=== PATIENT | female | born 1940 | race Caucasian/White ===

== ENCOUNTER 2016-07-24 23:47 | Emergency (ER) | payer MEDICARE, OTHER ==
[~2016-07-24] VITALS: Ht 162.6 cm; Wt 74.0 kg
[~2016-07-24 23:47] MED LIST: ALBU6.7H INH; LEVO-86 PO; MULTTAB26; NEXI20CA PO; PROMSYP6 PO; TRAM50TA PO
[2016-07-24 23:48] VITALS: BP 161/73; PULSE 109; RESP 18; TEMP 101; O2SAT 94
[2016-07-25] MEDS ORDERED: SODIUM CHLOR 0.9% 1000 ML INJ 1,000 ML IV ONE (00:30)
[2016-07-25] MEDS ORDERED: SODIUM CHLORIDE 0.9% FLUSH 10 ML FLUSH IVF PRN (00:30)
[2016-07-25 00:43] LABS: AUTOMATED NEUTROPHIL # 10.2 TH/MM3 (1.8-7.7); BASOPHIL # 0.2 TH/MM3 (0-0.2); BASOPHIL % 1.3 % (0.0-2.0); EOSINOPHIL % 0.1 % (0.0-4.0); HEMATOCRIT 40.9 % (35.0-46.0); LYMPHOCYTE # 1.2 TH/MM3 (1.0-4.8); MEAN CELL VOLUME 77.6 FL (80.0-100.0); MEAN CORPUSCULAR HEMOGLOBIN 25.3 PG (27.0-34.0); MEAN CORPUSCULAR HGB CONC 32.6 % (32.0-36.0); MONO % 12.4 % (0.0-8.0); NEUT % 77.2 % (16.0-70.0); PLATELET COUNT 212 TH/MM3 (150-450); RED BLOOD COUNT 5.27 MIL/MM3 (4.00-5.30); RED CELL DISTRIBUTION WIDTH 18.4 % (11.6-17.2); WHITE BLOOD COUNT 13.2 TH/MM3 (4.0-11.0)
[2016-07-25 00:47] LABS: HEMO FLAGS DIFF FINAL
--- NOTE | 2016-07-25 00:56 | RADRPT ---
EXAM DATE/TIME: 07/25/2016 00:48 [facility] COMPARISON: CHEST SINGLE AP, February 03, 2016, 22:34. INDICATIONS : Cough. MEDICAL HISTORY : None. SURGICAL HISTORY : None. ENCOUNTER: Initial ACUITY: 2 weeks PAIN SCORE: 0/10 LOCATION: Bilateral chest FINDINGS: PA and lateral views of the chest demonstrate the lungs to be symmetrically aerated without evidence of mass, infiltrate or effusion. The cardiomediastinal contours are unremarkable. Osseous structure s are intact. There are multiple overlying electrocardiogram leads noted. There is mild apparent scar ring. CONCLUSION: No acute disease. There is no evidence of pneumonia. Aly Ballard MD on July 25, 2016 at 0:54 Board Certified Radiologist. This report was verified electronically.
[2016-07-25 00:59] LABS: ALT (GPT) 35 U/L (10-53); ANION GAP 8 MEQ/L (5-15); AST (GOT) 17 U/L (15-37); BICARBONATE 26.3 MEQ/L (21.0-32.0); BLOOD UREA NITROGEN 17 MG/DL (7-18); CHLORIDE 101 MEQ/L (98-107); GLOMERULAR FILTRATION RATE 97 ML/MIN (>89); POTASSIUM 3.7 MEQ/L (3.5-5.1); SODIUM (NA) 135 MEQ/L (136-145)
[2016-07-25] MEDS ORDERED: BENZONATATE 100 MG CAP PO ONE (01:00)
[2016-07-25 01:01] LABS: ALKALINE PHOSPHATASE 71 U/L (45-117); TOTAL BILIRUBIN ADULT 0.9 MG/DL (0.2-1.0)
[2016-07-25] MEDS ORDERED: IOHEXOL 350 MG/ML 10 ML VIAL (for RAD DIAG) IV ONE (02:08)
--- NOTE | 2016-07-25 02:30 | RADRPT ---
EXAM DATE/TIME: 07/25/2016 02:04 [facility] COMPARISON: CHEST PA & LAT, July 25, 2016, 0:48. INDICATIONS : Cough and congestion. Evaluate for emboli. IV CONTRAST: 75 cc Omnipaque 350 (iohexol) IV RADIATION DOSE: 23.38 CTDIvol (mGy) MEDICAL HISTORY : None SURGICAL HISTORY : Hysterectomy. ENCOUNTER: Initial ACUITY: 1 day PAIN SCALE: 0/10 LOCATION: chest TECHNIQUE: Volumetric scanning of the chest was performed using a pulmonary embolism protocol MIP images were re constructed. Using automated exposure control and adjustment of the mA and/or kV according to patien t size, radiation dose was kept as low as reasonably achievable to obtain optimal diagnostic quality images. FINDINGS: PULMONARY ARTERIES: No filling defects are seen in the pulmonary arteries through the segmental level. LUNGS: There is no consolidation or pneumothorax . No concerning pulmonary nodule is visualized. There is m ild scarring. PLEURAE: There is no pleural thickening or pleural effusion. MEDIASTINUM: There is good visualization of the great vessels of the middle mediastinum. No evidence of mediastin al or hilar adenopathy/mass. There are tracheal calcifications. MUSCULOSKELETAL: Within normal limits for patient age. MISCELLANEOUS: The visualized upper abdominal organs demonstrate no acute abnormality. CONCLUSION: 1. No evidence of pulmonary emboli. 2. Lungs are clear except for mild scarring. Aly Ballard MD on July 25, 2016 at 2:27 Board Certified Radiologist. This report was verified electronically.
[2016-07-25] MEDS ORDERED: AMOXICILLIN/CLAVULANATE K 875 MG TAB PO ONE (03:15)
[2016-07-25] MEDS ORDERED: ACETAMINOPHEN 325 MG TAB PO ONE (03:15)
[2016-07-25] MEDS ORDERED: guaiFENesin/DEXTROMETHORPHAN 200 MG/20 MG/10 ML CUP PO ONE (03:15)
[2016-07-25] MEDS ORDERED: AUGM875T PO (03:47)
[2016-07-25] MEDS ORDERED: MUCI30TA2 PO (03:47)
--- NOTE | 2016-07-25 03:48 | PD ---
HPI Chief Complaint: Respiratory Symptoms Time Seen by Provider: 00:03 Travel History International Travel<30 days: No Contact w/Intl Traveler<30days: No Traveled to known affect area: No History of Present Illness HPI Patient 75-year-old female who just returned from a cruise out of [facility] a few days ago. Patient states that she developed a cough and congestion on the boat. She states that the crew ship doctor given her several DuoNeb treatments and she is not feeling better. She is coming by her who states that he was also sick for a few days and is now recovered. She denies any diarrhea nausea vomiting abdominal pain or hemoptysis. She states that she did have some fevers and was taking Tylenol intermittently but hasn't had some in some time. She denies any history of blood clots. PFSH Past Medical History Hx Anticoagulant Therapy: Yes (ASA) Diminished Hearing: No Immunizations Current: Yes Tetanus Vaccination: Unknown Influenza Vaccination: Yes Past Surgical History Hysterectomy: Yes Social History Alcohol Use: No Tobacco Use: No Substance Use: No Allergies-Medications (Allergen,Severity, Reaction): Coded Allergies: Chloromycetin (Verified Allergy, Severe, 07/25/16) Codeine (Verified Allergy, Severe, 07/25/16) Erythromycin (Verified Allergy, Unknown, 07/25/16) Reported Meds & Prescriptions Reported Meds & Active Scripts Active Augmentin (Amoxicillin-Clavulanate) 875-125 mg Tab 875 Mg PO BID 7 Days not for use in CrCl <30 ml/min. Mucinex DM (Dextromethorphan-Guaifenesin) 30-600 Mg Tab 1 Tab PO BID PRN Proventil Hfa 6.7 GM Inh (Albuterol Sulfate) 90 Mcg/Act Aer 2 Puff INH Q4HR PRN Reported Multi Complete/Iron (Multiple Vitamins W/ Minerals) 1 Tab Tab Synthroid (Levothyroxine Sodium) 137 Mcg Tab 137 Mcg PO DAILY Nexium (Esomeprazole DR) 20 Mg Capdr 20 Mg PO DAILY Review of Systems Except as stated in HPI: all other systems reviewed are Neg Physical Exam Narrative GENERAL: Well-developed well-nourished in no apparent distress. Appears well and nontoxic. SKIN: Focused skin assessment warm/dry. HEAD: Atraumatic. Normocephalic. EYES: Pupils equal and round. No scleral icterus. No injection or drainage. ENT: No nasal bleeding or discharge. Mucous membranes pink and moist. TMs clear bilaterally, oropharynx clear and moist. NECK: Trachea midline. No JVD. CARDIOVASCULAR: Regular rhythm with mild tachycardia. No murmur appreciated. 2 + bilateral equal pulses in all 4 extremities. RESPIRATORY: No accessory muscle use. Clear to auscultation. Breath sounds equal bilaterally. GASTROINTESTINAL: Abdomen soft, non-tender, nondistended. Hepatic and splenic margins not palpable. MUSCULOSKELETAL: No obvious deformities. No clubbing. No cyanosis. No edema. NEUROLOGICAL: Awake and alert. No obvious cranial nerve deficits. Motor grossly within normal limits. Normal speech. PSYCHIATRIC: Appropriate mood and affect; insight and judgment normal. Data Data Last Documented VS Vital Signs Date Time Temp Pulse Resp B/P Pulse Ox O2 Delivery O2 Flow Rate FiO2 07/25/16 03:58 104 18 169/80 95 07/25/16 00:34 Nasal Cannula 2 07/24/16 23:48 101.0 Orders Electrocardiogram (07/25/16 00:18) Complete Blood Count With Diff (07/25/16 00:18) Comprehensive Metabolic Panel (07/25/16 00:18) Lactic Acid Sepsis Protocol (07/25/16 00:18) Chest, Pa & Lat (07/25/16 00:18) Sodium Chloride 0.9% Flush (Ns Flush) (07/25/16 00:30) Sodium Chlor 0.9% 1000 Ml Inj (Ns 1000 M (07/25/16 00:30) Benzonatate (Tessalon) (07/25/16 01:00) Ct Pulmonary Angiogram (07/25/16 ) Influenzae A/B Antigen (07/25/16 01:22) Iohexol 350 Inj (Omnipaque 350 Inj) (07/25/16 02:08) Acetaminophen (Tylenol) (07/25/16 03:15) Amoxicil-Clavulanate (Augmentin) (07/25/16 03:15) Guaifen-Dm 200-20 Mg/10 Ml Liq (Robituss (07/25/16 03:15) Labs Laboratory Tests Test 07/25/16 00:25 White Blood Count 13.2 TH/MM3 Red Blood Count 5.27 MIL/MM3 Hemoglobin 13.3 GM/DL Hematocrit 40.9 % Mean Corpuscular Volume 77.6 FL Mean Corpuscular Hemoglobin 25.3 PG Mean Corpuscular Hemoglobin 32.6 % Concent Red Cell Distribution Width 18.4 % Platelet Count 212 TH/MM3 Mean Platelet Volume 11.0 FL Neutrophils (%) (Auto) 77.2 % Lymphocytes (%) (Auto) 9.0 % Monocytes (%) (Auto) 12.4 % Eosinophils (%) (Auto) 0.1 % Basophils (%) (Auto) 1.3 % Neutrophils # (Auto) 10.2 TH/MM3 Lymphocytes # (Auto) 1.2 TH/MM3 Monocytes # (Auto) 1.6 TH/MM3 Eosinophils # (Auto) 0.0 TH/MM3 Basophils # (Auto) 0.2 TH/MM3 CBC Comment DIFF FINAL Differential Comment Sodium Level 135 MEQ/L Potassium Level 3.7 MEQ/L Chloride Level 101 MEQ/L Carbon Dioxide Level 26.3 MEQ/L Anion Gap 8 MEQ/L Blood Urea Nitrogen 17 MG/DL Creatinine 0.60 MG/DL Estimat Glomerular Filtration 97 ML/MIN Rate Random Glucose 115 MG/DL Lactic Acid Level 0.9 mmol/L Calcium Level 9.4 MG/DL Total Bilirubin 0.9 MG/DL Aspartate Amino Transf 17 U/L (AST/SGOT) Alanine Aminotransferase 35 U/L (ALT/SGPT) Alkaline Phosphatase 71 U/L Total Protein 7.5 GM/DL Albumin 3.8 GM/DL [facility] Medical Decision Making Medical Screen Exam Complete: Yes Emergency Medical Condition: Yes Differential Diagnosis Pneumonia, atypical pneumonia, upper respiratory infection, influenza. Narrative Course Patient roomed in emergency department, minimally tachycardic. She was given fluids. Initially afebrile in emergency department she did spike a temperature to 101. She was given Tylenol. Initial chest x-ray is negative, with her tachycardia and mild short of breath CT PE study was indicated as the patient did have travel to [facility]. Last 24 hours Impressions Chest X-Ray 07/25/16 0018 Signed Impressions: Service Date/Time: Monday, July 25, 2016 00:48 - CONCLUSION: No acute disease. There is no evidence of pneumonia. Aly Ballard MD CT Angiography 07/25/16 0000 Signed Impressions: Service Date/Time: Monday, July 25, 2016 02:04 - CONCLUSION: 1. No evidence of pulmonary emboli. 2. Lungs are clear except for mild scarring. Aly Ballard MD Patient was monitored for several hours in the emergency department continues to appear well. She was given Tessalon which did not alleviate her cough. Mucinex DM was given and patient on reevaluation is sleeping comfortable. Her heart rate is improved and still remains minimally tachycardic approximate 105 bpm. Her oxygen saturation has been 94% plus while in the emergency department. Discussed my impression that the patient likely has an upper respiratory infection however she was on a cruise ship and exposure Listeria needs consideration. She does have an allergy to azithromycin and Augmentin will be ordered and instead. She would like to go home at this time. Discussed return to ED criteria need follow-up with primary care physician Diagnosis Primary Impression: Upper respiratory infection Qualified Code: J06.9 - Viral upper respiratory tract infection Additional Impression: Cough Med/Other Pt SpecificInfo: Prescription(s) given Scripts Amoxicillin-Clavulanate (Augmentin)875-125 mg Clo424 Mg PO BID 7 Days Ref 0 not for use in CrCl <30 ml/min. Prov:Cameron Hinojosa MD 07/25/16 Dextromethorphan-Guaifenesin (Mucinex DM)30-600 Mg Tab1 Tab PO BID PRN (CHEST CONGESTION AND/OR COUGH) #30 TAB Ref 0 Prov:Cameron Hinojosa MD 07/25/16 Disposition: 01 DISCHARGE HOME Condition: Stable Cameron Hinojosa MD July 25, 2016 03:48
[2016-07-25 03:58] VITALS: BP 169/80
--- NOTE | 2016-07-25 10:25 | EKG ---
Date Performed: 07/25/2016 Time Performed: 00:49:22 PTAGE: 75 years EKG: SINUS TACHYCARDIA NONSPECIFIC ST & T-WAVE ABNORMALITY ABNORMAL RHYTHM ECG NO PREVIOUS TRACING DOCTOR: Levi Coronado Interpretating Date/Time 07/25/2016 10:20:41
== END 2016-07-25 04:06 | disposition home or self-care (01) ==
LOC: NEPC 23:47
DX: J06.9 Acute upper respiratory infection, unspecified (principal); R00.0 Tachycardia, unspecified
CPT/HCPCS: 71020; 71275; 80053; 83605; 85025; 87804; 93005; 96374; 99284; J7030; Q9967

== ENCOUNTER 2016-08-01 21:55 | Emergency (ER) | payer MEDICARE, OTHER ==
[~2016-08-01] VITALS: Ht 167.6 cm; Wt 79.5 kg
[~2016-08-01 21:55] MED LIST changes: +AUGM875T PO; +MUCI30TA2 PO; -PROMSYP6 PO; -TRAM50TA PO
[2016-08-01 22:05] VITALS: BP 206/91; PULSE 77; RESP 18; O2SAT 94
[2016-08-01] MEDS ORDERED: SODIUM CHLORIDE 0.9% FLUSH 10 ML FLUSH IV FLUSH PRN (22:15)
[2016-08-01] MEDS ORDERED: MORPHINE SULFATE 4 MG/ML INJ IV PUSH ONE (22:15)
[2016-08-01] MEDS ORDERED: ONDANSETRON HCL 4 MG/2 ML VIAL IVP ONE (22:15)
[2016-08-01] MEDS ORDERED: methylPREDNISolone SOD SUCC 125 MG/2 ML VIAL IV PUSH ONE (22:15)
--- NOTE | 2016-08-01 22:15 | PD ---
HPI Chief Complaint: Pain: Acute or Chronic Time Seen by Provider: 22:00 Travel History International Travel<30 days: Yes Contact w/Intl Traveler<30days: Yes Name of Country Traveled to: [place] Traveled to known affect area: No ([place] and [place]) History of Present Illness HPI This is a 75-year-old female who presents via EMS for evaluation of right sided lateral lower rib cage pain. She has been having a cough, upper respiratory infection for 3 weeks. This morning she had a particularly forceful coughing spell when she felt a "pop" in her right lateral lower rib cage. Since then she has had persistent pain which is worse with movement and coughing. She tried using NSAIDs, Flexeril but the symptoms have persisted which prompted evaluation. Pain is 10 out of 10, aching. She denies any shortness of breath, abdominal pain, nausea or vomiting, dysuria, fevers or chills, hematuria. No history of renal stone. She has no other complaints at this time. PFSH Past Medical History Hx Anticoagulant Therapy: Yes (ASA) Diminished Hearing: No Immunizations Current: Yes Past Surgical History Hysterectomy: Yes Social History Alcohol Use: No Tobacco Use: No Substance Use: No Allergies-Medications (Allergen,Severity, Reaction): Coded Allergies: Chloromycetin (Verified Allergy, Severe, 08/01/16) Codeine (Verified Allergy, Severe, 08/01/16) Erythromycin (Verified Allergy, Unknown, 08/01/16) Reported Meds & Prescriptions Reported Meds & Active Scripts Active Tramadol (Tramadol HCl) 50 Mg Tab 50 Mg PO Q6H PRN Mucinex DM (Dextromethorphan-Guaifenesin) 30-600 Mg Tab 1 Tab PO BID PRN Proventil Hfa 6.7 GM Inh (Albuterol Sulfate) 90 Mcg/Act Aer 2 Puff INH Q4HR PRN Reported Multi Complete/Iron (Multiple Vitamins W/ Minerals) 1 Tab Tab Synthroid (Levothyroxine Sodium) 137 Mcg Tab 137 Mcg PO DAILY Nexium (Esomeprazole DR) 20 Mg Capdr 20 Mg PO DAILY Review of Systems Except as stated in HPI: all other systems reviewed are Neg Physical Exam Narrative GENERAL: Pleasant well-developed well-nourished female in no acute distress. SKIN: Warm and dry. No rash noted on the torso HEAD: Atraumatic. Normocephalic. EYES: Pupils equal and round. No scleral icterus. No injection or drainage. ENT: No nasal bleeding or discharge. Mucous membranes pink and moist. NECK: Trachea midline. No JVD. CARDIOVASCULAR: Regular rate and rhythm. No murmur appreciated. RESPIRATORY: No accessory muscle use. Clear to auscultation. Breath sounds equal bilaterally. No crackles no wheezing no rhonchi GASTROINTESTINAL: Abdomen soft, non-tender, nondistended. Hepatic and splenic margins not palpable. MUSCULOSKELETAL: No obvious deformities. There is tenderness to palpation to the lateral right lower rib cage. There is no tenderness to palpation in the after right CVA region. NEUROLOGICAL: Awake and alert. No obvious cranial nerve deficits. Motor grossly within normal limits. Normal speech. Data Data Last Documented VS Vital Signs Date Time Temp Pulse Resp B/P Pulse Ox O2 Delivery O2 Flow Rate FiO2 08/02/16 00:17 78 16 167/73 99 Room Air Orders Ribs, Uni (W/Exp Cxr-Min 3vw) (08/01/16 ) Complete Blood Count With Diff (08/01/16 22:05) Comprehensive Metabolic Panel (08/01/16 22:05) Urinalysis - C+S If Indicated (08/01/16 22:05) Iv Access Insert/Monitor (08/01/16 22:05) Ecg Monitoring (08/01/16 22:05) Oximetry (08/01/16 22:05) Morphine Inj (Morphine Inj) (08/01/16 22:15) Ondansetron Inj (Zofran Inj) (08/01/16 22:15) Sodium Chloride 0.9% Flush (Ns Flush) (08/01/16 22:15) Methylprednisolone So Succ Inj (Solumedr (08/01/16 22:15) Ketorolac Inj (Toradol Inj) (08/02/16 00:00) Lidocaine 5% Patch.12 Hr (Lidoderm 5% Pa (08/02/16 00:00) Labs Laboratory Tests Test 08/01/16 08/01/16 22:19 23:00 White Blood Count 9.1 TH/MM3 Red Blood Count 4.84 MIL/MM3 Hemoglobin 12.8 GM/DL Hematocrit 37.6 % Mean Corpuscular Volume 77.8 FL Mean Corpuscular Hemoglobin 26.5 PG Mean Corpuscular Hemoglobin 34.0 % Concent Red Cell Distribution Width 19.4 % Platelet Count 333 TH/MM3 Mean Platelet Volume 10.4 FL Neutrophils (%) (Auto) 57.8 % Lymphocytes (%) (Auto) 28.5 % Monocytes (%) (Auto) 11.1 % Eosinophils (%) (Auto) 1.4 % Basophils (%) (Auto) 1.2 % Neutrophils # (Auto) 5.3 TH/MM3 Lymphocytes # (Auto) 2.6 TH/MM3 Monocytes # (Auto) 1.0 TH/MM3 Eosinophils # (Auto) 0.1 TH/MM3 Basophils # (Auto) 0.1 TH/MM3 CBC Comment AUTO DIFF Differential Total Cells 100 Counted Neutrophils % (Manual) 54 % Band Neutrophils % 4 % Lymphocytes % 31 % Monocytes % 5 % Eosinophils % 1 % Basophils % 1 % Other Cells % 1 % Neutrophils # (Manual) 5.6 TH/MM3 Metamyelocytes 2 % Myelocytes 1 % Differential Comment FINAL DIFF MANUAL Atypical Lymphocytes % Platelet Estimate NORMAL Platelet Morphology Comment ENLARGED Ovalocytes 1+ Acanthocytes 1+ Keratocytes OCC Sodium Level 142 MEQ/L Potassium Level 3.7 MEQ/L Chloride Level 108 MEQ/L Carbon Dioxide Level 27.2 MEQ/L Anion Gap 7 MEQ/L Blood Urea Nitrogen 9 MG/DL Creatinine 0.52 MG/DL Estimat Glomerular Filtration 114 ML/MIN Rate Random Glucose 97 MG/DL Calcium Level 8.9 MG/DL Total Bilirubin 0.2 MG/DL Aspartate Amino Transf 15 U/L (AST/SGOT) Alanine Aminotransferase 24 U/L (ALT/SGPT) Alkaline Phosphatase 76 U/L Total Protein 6.6 GM/DL Albumin 3.1 GM/DL Urine Color LIGHT-YELLOW Urine Turbidity CLEAR Urine pH 6.5 Urine Specific [place] 1.008 Urine Protein NEG mg/dL Urine Glucose (UA) NEG mg/dL Urine Ketones NEG mg/dL Urine Occult Blood NEG Urine Nitrite NEG Urine Bilirubin NEG Urine Urobilinogen LESS THAN 2.0 MG/DL Urine Leukocyte Esterase TRACE Urine RBC LESS THAN 1 /hpf Urine WBC 2 /hpf Urine Squamous Epithelial 2 /hpf Cells Urine Mucus FEW /lpf Microscopic Urinalysis Comment CULT NOT INDICATED MDM Medical Decision Making Medical Screen Exam Complete: Yes Emergency Medical Condition: Yes Medical Record Reviewed: Yes Differential Diagnosis Costochondritis, intercostal muscle strain, spontaneous pneumothorax, rib fracture, pneumonia, renal stone Narrative Course 75-year-old female who has had a cough for 3 weeks presents now with lateral right lower rib cage pain which started after a coughing spell this morning. Examination reveals that the pain is reproducible to palpation of the lateral right lower rib cage. There is no CVA tenderness and her history is more suggestive of musculoskeletal pain as opposed to a renal stone. Plan is for right-sided rib x-ray, basic lab work, urinalysis. The patient will be provided morphine and Zofran. At the end of my shift the patient was signed out pending x-ray and lab work tests. Scripts Tramadol 50 Mg Tab50 Mg PO Q6H PRN (PAIN) #10 TAB Ref 0 Prov:Marybel Valdes DO 08/02/16 Derick Durán August 01, 2016 22:15
[2016-08-01 22:49] LABS: AUTOMATED NEUTROPHIL # 5.3 TH/MM3 (1.8-7.7); BASOPHIL # 0.1 TH/MM3 (0-0.2); BASOPHIL % 1.2 % (0.0-2.0); EOSINOPHIL # 0.1 TH/MM3 (0-0.4); EOSINOPHIL % 1.4 % (0.0-4.0); HEMATOCRIT 37.6 % (35.0-46.0); LYMPH % 28.5 % (9.0-44.0); LYMPHOCYTE # 2.6 TH/MM3 (1.0-4.8); MEAN CELL VOLUME 77.8 FL (80.0-100.0); MEAN CORPUSCULAR HEMOGLOBIN 26.5 PG (27.0-34.0); MONO % 11.1 % (0.0-8.0); NEUT % 57.8 % (16.0-70.0); PLATELET COUNT 333 TH/MM3 (150-450); RED BLOOD COUNT 4.84 MIL/MM3 (4.00-5.30); RED CELL DISTRIBUTION WIDTH 19.4 % (11.6-17.2); WHITE BLOOD COUNT 9.1 TH/MM3 (4.0-11.0)
[2016-08-01 22:56] LABS: HEMO FLAGS AUTO DIFF
[2016-08-01 23:08] LABS: ANION GAP 7 MEQ/L (5-15); AST (GOT) 15 U/L (15-37); BICARBONATE 27.2 MEQ/L (21.0-32.0); BLOOD UREA NITROGEN 9 MG/DL (7-18); CHLORIDE 108 MEQ/L (98-107); GLOMERULAR FILTRATION RATE 114 ML/MIN (>89); POTASSIUM 3.7 MEQ/L (3.5-5.1); SODIUM (NA) 142 MEQ/L (136-145)
--- NOTE | 2016-08-01 23:09 | RADRPT ---
EXAM DATE/TIME: 08/01/2016 22:49 [facility] COMPARISON: No previous studies available for comparison. INDICATIONS : Right side pain today after coughing. MEDICAL HISTORY : None. SURGICAL HISTORY : Hysterectomy. ENCOUNTER: Initial ACUITY: 1 day PAIN SCORE: 8/10 LOCATION: Right ribs. FINDINGS: Multiple views of the right ribs were performed. Pt. is osteopenic. There is no evidence of displaced fracture. No destructive lesions or areas of periosteal thickening are seen. Expiratory view of th e chest is negative for pneumothorax. The mediastinal structures are midline. CONCLUSION: Unremarkable examination of the right ribs and chest. Levi Purcell MD on August 01, 2016 at 23:07 Board Certified Radiologist. This report was verified electronically.
[2016-08-01 23:11] LABS: ALKALINE PHOSPHATASE 76 U/L (45-117); ALT (GPT) 24 U/L (10-53); TOTAL BILIRUBIN ADULT 0.2 MG/DL (0.2-1.0)
[2016-08-01 23:18] LABS: BLOOD, URINE NEG (NEG); GLUCOSE,URINE NEG (NEG); KETONE, URINE NEG (NEG); MUCUS URINE FEW /lpf (OCC); NITRITE,URINE NEG (NEG); PH, URINE 6.5 (5.0-8.5); SQUAMOUS EPITHELIAL CELL URINE 2 /hpf (0-5); URINE COLOR LIGHT-YELLOW (YELLW/STRAW)
[2016-08-01 23:24] LABS: COMMENT (UR) CULT NOT INDICATED; CULTURE IF INDICATED CULT NOT INDICATED
[2016-08-01 23:38] LABS: BANDS 4 % (0-6); BASOPHILS 1 % (0-2); EOSINOPHILS 1 % (0-4); METAMYELOCYTES 2 % (0-1); MYELOCYTES 1 % (0-0); NEUTROPHIL # MANUAL DIFF 5.6 TH/MM3 (1.8-7.7); POLYS (SEG NEUTROPHILS) 54 % (16-70); WBC DIFF SAMPLE 100
[2016-08-01 23:40] LABS: ACANTHOCYTES 1+ (NORMAL); KERATOCYTES OCC (NORMAL); OVALOCYTES 1+ (NORMAL)
[2016-08-01 23:41] LABS: PLATELET ESTIMATE SMEAR NORMAL (NORMAL); PLATELET MORPHOLOGY ENLARGED (NORMAL)
[2016-08-01 23:42] LABS: SCAN/DIFF FINAL DIFF MANUAL
[2016-08-02] MEDS ORDERED: KETOROLAC TROMETHAMINE 30 MG/ML (IVP) VIAL IVP ONE
[2016-08-02] MEDS ORDERED: LIDOCAINE HCL 5% PATCH T-DERMAL ONE
[2016-08-02] MEDS ORDERED: TRAM50TA PO (00:11)
--- NOTE | 2016-08-02 00:13 | PD ---
Physical Exam Date Seen by Provider: August 02, 2016 Data Data Last Documented VS Vital Signs Date Time Temp Pulse Resp B/P Pulse Ox O2 Delivery O2 Flow Rate FiO2 08/01/16 22:05 77 18 206/91 94 Orders Ribs, Uni (W/Exp Cxr-Min 3vw) (08/01/16 ) Complete Blood Count With Diff (08/01/16 22:05) Comprehensive Metabolic Panel (08/01/16 22:05) Urinalysis - C+S If Indicated (08/01/16 22:05) Iv Access Insert/Monitor (08/01/16 22:05) Ecg Monitoring (08/01/16 22:05) Oximetry (08/01/16 22:05) Morphine Inj (Morphine Inj) (08/01/16 22:15) Ondansetron Inj (Zofran Inj) (08/01/16 22:15) Sodium Chloride 0.9% Flush (Ns Flush) (08/01/16 22:15) Methylprednisolone So Succ Inj (Solumedr (08/01/16 22:15) Ketorolac Inj (Toradol Inj) (08/02/16 00:00) Lidocaine 5% Patch.12 Hr (Lidoderm 5% Pa (08/02/16 00:00) Labs Laboratory Tests Test 08/01/16 08/01/16 22:19 23:00 White Blood Count 9.1 TH/MM3 Red Blood Count 4.84 MIL/MM3 Hemoglobin 12.8 GM/DL Hematocrit 37.6 % Mean Corpuscular Volume 77.8 FL Mean Corpuscular Hemoglobin 26.5 PG Mean Corpuscular Hemoglobin 34.0 % Concent Red Cell Distribution Width 19.4 % Platelet Count 333 TH/MM3 Mean Platelet Volume 10.4 FL Neutrophils (%) (Auto) 57.8 % Lymphocytes (%) (Auto) 28.5 % Monocytes (%) (Auto) 11.1 % Eosinophils (%) (Auto) 1.4 % Basophils (%) (Auto) 1.2 % Neutrophils # (Auto) 5.3 TH/MM3 Lymphocytes # (Auto) 2.6 TH/MM3 Monocytes # (Auto) 1.0 TH/MM3 Eosinophils # (Auto) 0.1 TH/MM3 Basophils # (Auto) 0.1 TH/MM3 CBC Comment AUTO DIFF Differential Total Cells 100 Counted Neutrophils % (Manual) 54 % Band Neutrophils % 4 % Lymphocytes % 31 % Monocytes % 5 % Eosinophils % 1 % Basophils % 1 % Other Cells % 1 % Neutrophils # (Manual) 5.6 TH/MM3 Metamyelocytes 2 % Myelocytes 1 % Differential Comment FINAL DIFF MANUAL Atypical Lymphocytes % Platelet Estimate NORMAL Platelet Morphology Comment ENLARGED Ovalocytes 1+ Acanthocytes 1+ Keratocytes OCC Sodium Level 142 MEQ/L Potassium Level 3.7 MEQ/L Chloride Level 108 MEQ/L Carbon Dioxide Level 27.2 MEQ/L Anion Gap 7 MEQ/L Blood Urea Nitrogen 9 MG/DL Creatinine 0.52 MG/DL Estimat Glomerular Filtration 114 ML/MIN Rate Random Glucose 97 MG/DL Calcium Level 8.9 MG/DL Total Bilirubin 0.2 MG/DL Aspartate Amino Transf 15 U/L (AST/SGOT) Alanine Aminotransferase 24 U/L (ALT/SGPT) Alkaline Phosphatase 76 U/L Total Protein 6.6 GM/DL Albumin 3.1 GM/DL Urine Color LIGHT-YELLOW Urine Turbidity CLEAR Urine pH 6.5 Urine Specific [place] 1.008 Urine Protein NEG mg/dL Urine Glucose (UA) NEG mg/dL Urine Ketones NEG mg/dL Urine Occult Blood NEG Urine Nitrite NEG Urine Bilirubin NEG Urine Urobilinogen LESS THAN 2.0 MG/DL Urine Leukocyte Esterase TRACE Urine RBC LESS THAN 1 /hpf Urine WBC 2 /hpf Urine Squamous Epithelial 2 /hpf Cells Urine Mucus FEW /lpf Microscopic Urinalysis Comment CULT NOT INDICATED MDM Medical Record Reviewed: Yes Supervised Visit with SUDHEER: Yes Interpretation(s) Laboratory Tests Test 08/01/16 08/01/16 22:19 23:00 White Blood Count 9.1 TH/MM3 (4.0-11.0) Red Blood Count 4.84 MIL/MM3 (4.00-5.30) Hemoglobin 12.8 GM/DL (11.6-15.3) Hematocrit 37.6 % (35.0-46.0) Mean Corpuscular Volume 77.8 FL (80.0-100.0) Mean Corpuscular Hemoglobin 26.5 PG (27.0-34.0) Mean Corpuscular Hemoglobin 34.0 % Concent (32.0-36.0) Red Cell Distribution Width 19.4 % (11.6-17.2) Platelet Count 333 TH/MM3 (150-450) Mean Platelet Volume 10.4 FL (7.0-11.0) Neutrophils (%) (Auto) 57.8 % (16.0-70.0) Lymphocytes (%) (Auto) 28.5 % (9.0-44.0) Monocytes (%) (Auto) 11.1 % (0.0-8.0) Eosinophils (%) (Auto) 1.4 % (0.0-4.0) Basophils (%) (Auto) 1.2 % (0.0-2.0) Neutrophils # (Auto) 5.3 TH/MM3 (1.8-7.7) Lymphocytes # (Auto) 2.6 TH/MM3 (1.0-4.8) Monocytes # (Auto) 1.0 TH/MM3 (0-0.9) Eosinophils # (Auto) 0.1 TH/MM3 (0-0.4) Basophils # (Auto) 0.1 TH/MM3 (0-0.2) CBC Comment AUTO DIFF Differential Total Cells 100 Counted Neutrophils % (Manual) 54 % (16-70) Band Neutrophils % 4 % (0-6) Lymphocytes % 31 % (9-44) Monocytes % 5 % (0-8) Eosinophils % 1 % (0-4) Basophils % 1 % (0-2) Other Cells % 1 % Neutrophils # (Manual) 5.6 TH/MM3 (1.8-7.7) Metamyelocytes 2 % (0-1) Myelocytes 1 % (0-0) Differential Comment FINAL DIFF MANUAL Atypical Lymphocytes % (0-0) Platelet Estimate NORMAL (NORMAL) Platelet Morphology Comment ENLARGED (NORMAL) Ovalocytes 1+ (NORMAL) Acanthocytes 1+ (NORMAL) Keratocytes OCC (NORMAL) Sodium Level 142 MEQ/L (136-145) Potassium Level 3.7 MEQ/L (3.5-5.1) Chloride Level 108 MEQ/L (98-107) Carbon Dioxide Level 27.2 MEQ/L (21.0-32.0) Anion Gap 7 MEQ/L (5-15) Blood Urea Nitrogen 9 MG/DL (7-18) Creatinine 0.52 MG/DL (0.50-1.00) Estimat Glomerular Filtration 114 ML/MIN Rate (>89) Random Glucose 97 MG/DL (74-106) Calcium Level 8.9 MG/DL (8.5-10.1) Total Bilirubin 0.2 MG/DL (0.2-1.0) Aspartate Amino Transf 15 U/L (15-37) (AST/SGOT) Alanine Aminotransferase 24 U/L (10-53) (ALT/SGPT) Alkaline Phosphatase 76 U/L (45-117) Total Protein 6.6 GM/DL (6.4-8.2) Albumin 3.1 GM/DL (3.4-5.0) Urine Color LIGHT-YELLOW (YELLW/STRAW) Urine Turbidity CLEAR (CLEAR) Urine pH 6.5 (5.0-8.5) Urine Specific [place] 1.008 (1.002-1.035) Urine Protein NEG mg/dL (NEG-TRACE) Urine Glucose (UA) NEG mg/dL (NEG) Urine Ketones NEG mg/dL (NEG) Urine Occult Blood NEG (NEG) Urine Nitrite NEG (NEG) Urine Bilirubin NEG (NEG) Urine Urobilinogen LESS THAN 2.0 MG/DL (LESS THAN 2.0) Urine Leukocyte Esterase TRACE (NEG) Urine RBC LESS THAN 1 /hpf (0-3) Urine WBC 2 /hpf (0-5) Urine Squamous Epithelial 2 /hpf (0-5) Cells Urine Mucus FEW /lpf (OCC) Microscopic Urinalysis Comment CULT NOT INDICATED Vital Signs Date Time Temp Pulse Resp B/P Pulse Ox O2 Delivery O2 Flow Rate FiO2 08/01/16 22:05 77 18 206/91 94 Last Impressions Ribs X-Ray 08/01/16 0000 Signed Impressions: Service Date/Time: Monday, August 01, 2016 22:49 - CONCLUSION: Unremarkable examination of the right ribs and chest. Levi Purcell MD Differential Diagnosis Costochondritis, muscle strain, pneumothorax, kidney stone Narrative Course I, Dr. Valdes, have reviewed the advance practice practitioner's documentation and am in agreement, met with the patient face to face, made the diagnosis, and the medical decision making was done by me. *My assessment and Findings: Patient with most likely costochondritis as patient has had a cough for the past 3 weeks. Patient reports that she has had a cough for the past 3 weeks and is at the tail end of her symptoms. Reports that she had a coughing spell this morning and heard a pop in her right ribs after her coughing fit. Patient presents the emergency room with pain to her right lateral ribs. Reports that pain is tender to touch, reports that she has tried taking ibuprofen with no relief of symptoms. On evaluation, patient has symptoms that are reproducible on exam. Patient with most likely musculoskeletal pain. CBC & BMP Diagram 08/01/16 22:19 Last Impressions Ribs X-Ray 08/01/16 0000 Signed Impressions: Service Date/Time: Monday, August 01, 2016 22:49 - CONCLUSION: Unremarkable examination of the right ribs and chest. Levi Purcell MD Labs as well as x-ray reviewed. Patient was reevaluated and is feeling much better at this time. Plan to discharge patient home with follow-up with her primary care doctor. I did write for a prescription of Lidoderm patch as well as for tramadol. Patient understands that if symptoms worsen or progress, she will need to return to the emergency room. Diagnosis Primary Impression: Costochondritis, acute Patient Instructions: Narcotic given in the ED, General Instructions Additional Instruction: Please follow-up with your primary care doctor in 2-3 days Return to emergency room if symptoms worsen or progress Return to emergency room as needed Med/Other Pt SpecificInfo: Prescription(s) given Scripts Tramadol 50 Mg Tab50 Mg PO Q6H PRN (PAIN) #10 TAB Ref 0 Prov:Marybel Valdes DO 08/02/16 Disposition: 01 DISCHARGE HOME Condition: Stable Marybel Valdes DO August 02, 2016 00:13
[2016-08-02 00:17] VITALS: BP 167/73; PULSE 78; RESP 16; O2SAT 99
== END 2016-08-02 00:21 | disposition home or self-care (01) ==
LOC: NEPC 21:55
DX: M94.0 Chondrocostal junction syndrome [Tietze] (principal); R05 Cough; Z79.01 Long term (current) use of anticoagulants
CPT/HCPCS: 71101; 80053; 81001; 85007; 85027; 96374; 96375; 99284; J1885; J2270; J2405; J2930

== ENCOUNTER 2016-11-09 11:14 | Inpatient (IN) | payer MEDICARE, OTHER ==
[~2016-11-09] VITALS: Ht 167.6 cm; Wt 90.2 kg
[2016-11-09] VITALS (11 sets, daily range): BP systolic 84–109; BP diastolic 49–75; PULSE 75–118; RESP 17–20; TEMP 98.6–98.9; O2SAT 91–97
[~2016-11-09 11:14] MED LIST changes: -AUGM875T PO; +TRAM50TA PO
[2016-11-09] MEDS ORDERED: SODIUM CHLOR 0.9% 1000 ML INJ 1,000 ML IV ONE (11:45)
[2016-11-09] MEDS ORDERED: LEVO-86 PO (11:45)
[2016-11-09] MEDS ORDERED: LEVO.125 PO (11:45)
[2016-11-09] MEDS ORDERED: ONDANSETRON HCL 4 MG/2 ML VIAL IV PUSH ONE (11:45)
--- NOTE | 2016-11-09 11:48 | PD ---
HPI Chief Complaint: GI Complaint Time Seen by Provider: 11:33 Travel History International Travel<30 days: No Contact w/Intl Traveler<30days: No Traveled to known affect area: No History of Present Illness HPI 76-year-old female complains of headache, mild dry cough, body ache, nausea and generalized malaise. Patient states that the symptoms started a week and a half ago. Patient states that headache is aching headache started at the frontal head with radiation to right side of the head. Patient denies any visual change. Patient states that she has mild aching neck pain. Patient denies any stiff neck. Patient denies any chest pain or shortness of breath. Patient states that she has some mild dry cough. Patient states that she has history of Crohn's disease and chronic pain however is not new. Patient denies any states that she has aching back pain. Patient denies any dysuria or frequency. Patient denies any vaginal discharge. Patient states that she has intermittent low-grade fever. PFSH Past Medical History Hx Anticoagulant Therapy: Yes (ASA) Cancer: Yes (thyroid) Diminished Hearing: No Immunizations Current: Yes ?: Not Past Surgical History Cholecystectomy: Yes Hysterectomy: Yes Social History Alcohol Use: No Tobacco Use: No Substance Use: No Allergies-Medications (Allergen,Severity, Reaction): Coded Allergies: chloramphenicol (Unverified Allergy, Severe, 11/09/16) codeine (Unverified Allergy, Severe, 11/09/16) erythromycin base (Unverified Allergy, Unknown, 11/09/16) Reported Meds & Prescriptions Reported Meds & Active Scripts Active Proventil Hfa 6.7 GM Inh (Albuterol Sulfate) 90 Mcg/Act Aer 2 Puff INH Q4HR PRN Reported Synthroid (Levothyroxine Sodium) 125 Mcg Tab 125 Mcg PO TUE,THURS,SAT,SUN Synthroid (Levothyroxine Sodium) 137 Mcg Tab 137 Mcg PO SAT WED SAT Multi Complete/Iron (Multiple Vitamins W/ Minerals) 1 Tab Tab Nexium (Esomeprazole DR) 20 Mg Capdr 20 Mg PO DAILY Review of Systems General / Constitutional: Positive: Fever Eyes: No: Visual changes HENT: Positive: Headaches, Neck Pain Cardiovascular: No: Chest Pain or Discomfort Respiratory: Positive: Cough, No: Shortness of Breath Gastrointestinal: Positive: Nausea, Abdominal Pain Genitourinary: No: Dysuria Musculoskeletal: No: Pain Skin: No Rash Neurologic: No: Weakness Psychiatric: No: Depression Endocrine: No: Polydipsia Hematologic/Lymphatic: No: Easy Bruising Physical Exam Narrative GENERAL: Well-nourished, well-developed patient. SKIN: Focused skin assessment warm/dry. HEAD: Normocephalic. EYES: No scleral icterus. No injection or drainage. NECK: Supple, trachea midline. No JVD or lymphadenopathy. Mild tenderness paravertebral areas cervical spine. No midline tenderness. No meningismus. CARDIOVASCULAR: Regular rate and rhythm without murmurs, gallops, or rubs. RESPIRATORY: Breath sounds equal bilaterally. No accessory muscle use. GASTROINTESTINAL: Abdomen soft, non-tender, nondistended. MUSCULOSKELETAL: No cyanosis, or edema. BACK: Nontender without obvious deformity. No CVA tenderness. Neurologic exam: Patient awake and alert oriented 3. No obvious focal neurological deficit. Data Data Last Documented VS Vital Signs Date Time Temp Pulse Resp B/P (MAP) Pulse Ox O2 Delivery O2 Flow Rate FiO2 11/09/16 12:52 102 18 95/53 (67) 95 Nasal Cannula 2.00 11/09/16 12:35 98.9 Orders Orders Electrocardiogram (11/09/16 11:37) Complete Blood Count With Diff (11/09/16 11:37) Comprehensive Metabolic Panel (11/09/16 11:37) Prothrombin Time / Inr (Pt) (11/09/16 11:37) Act Partial Throm Time (Ptt) (11/09/16 11:37) Lipase (11/09/16 11:37) Urinalysis - C+S If Indicated (11/09/16 11:37) Influenzae A/B Antigen (11/09/16 11:37) Chest, Single Ap (11/09/16 11:37) Ct Brain W/O Iv Contrast(Rout) (11/09/16 11:37) Iv Access Insert/Monitor (11/09/16 11:37) Ecg Monitoring (11/09/16 11:37) Oximetry (11/09/16 11:37) Sodium Chlor 0.9% 1000 Ml Inj (Ns 1000 M (11/09/16 11:45) Ondansetron Inj (Zofran Inj) (11/09/16 11:45) Westergren Sedimentation Rate (11/09/16 11:45) Admit To Inpatient (11/09/16 ) Vital Signs (Adult) Q4H (11/09/16 13:17) Activity Bed Rest With Brp (11/09/16 13:17) Diet Clear Liquid (11/09/16 Lunch) Sodium Chlor 0.45% 1000 Ml Inj (2 Ns 1 (11/09/16 13:17) Sodium Chloride 0.9% Flush (Ns Flush) (11/09/16 13:30) Sodium Chloride 0.9% Flush (Ns Flush) (11/09/16 21:00) Basic Metabolic Panel (Bmp) (11/10/16 06:00) Comprehensive Metabolic Panel (11/10/16 06:00) Naloxone Inj (Narcan Inj) (11/09/16 13:30) Docusate Sodium-Senna (Tram-Colace) (11/09/16 21:00) Magnesium Hydroxide Liq (Milk Of Magnesi (11/09/16 13:30) Sennosides (Senokot) (11/09/16 13:30) Bisacodyl Supp (Dulcolax Supp) (11/09/16 13:30) Lactulose Liq (Lactulose Liq) (11/09/16 13:30) Kcl Bolus Inj (11/09/16 13:15) Ns + Kcl Inj (11/09/16 13:15) Labs Laboratory Tests Test 11/09/16 12:20 White Blood Count 4.6 TH/MM3 Red Blood Count 4.67 MIL/MM3 Hemoglobin 11.9 GM/DL Hematocrit 35.9 % Mean Corpuscular Volume 76.9 FL Mean Corpuscular Hemoglobin 25.4 PG Mean Corpuscular Hemoglobin Concent 33.0 % Red Cell Distribution Width 18.1 % Platelet Count 140 TH/MM3 Mean Platelet Volume 12.2 FL Neutrophils (%) (Auto) 82.6 % Lymphocytes (%) (Auto) 8.1 % Monocytes (%) (Auto) 6.9 % Eosinophils (%) (Auto) 1.3 % Basophils (%) (Auto) 1.1 % Neutrophils # (Auto) 3.7 TH/MM3 Lymphocytes # (Auto) 0.4 TH/MM3 Monocytes # (Auto) 0.3 TH/MM3 Eosinophils # (Auto) 0.1 TH/MM3 Basophils # (Auto) 0.1 TH/MM3 CBC Comment AUTO DIFF Differential Comment AUTO DIFF CONFIRMED Erythrocyte Sedimentation Rate 10 mm/hr Prothrombin Time 12.4 SEC Prothromb Time International Ratio 1.1 RATIO Activated Partial Thromboplast Time 28.9 SEC Blood Urea Nitrogen 77 MG/DL Creatinine 2.80 MG/DL Random Glucose 118 MG/DL Total Protein 5.9 GM/DL Albumin 2.2 GM/DL Calcium Level 8.2 MG/DL Alkaline Phosphatase 40 U/L Aspartate Amino Transf (AST/SGOT) 36 U/L Alanine Aminotransferase (ALT/SGPT) 41 U/L Total Bilirubin 0.5 MG/DL Sodium Level 131 MEQ/L Potassium Level 3.1 MEQ/L Chloride Level 99 MEQ/L Carbon Dioxide Level 19.8 MEQ/L Anion Gap 12 MEQ/L Estimat Glomerular Filtration Rate 16 ML/MIN Lipase 235 U/L [facility] Medical Decision Making Medical Screen Exam Complete: Yes Emergency Medical Condition: Yes Interpretation(s) Last Impressions Head CT 11/09/16 1137 Signed Impressions: Service Date/Time: Wednesday, November 09, 2016 11:57 - CONCLUSION: Negative for an acute process. Goldy Newman MD FACR Chest X-Ray 11/09/16 1137 Signed Impressions: Service Date/Time: Wednesday, November 09, 2016 11:46 - CONCLUSION: Compensated cardiomegaly otherwise negative Goldy Newman MD FACR 1305 p.m. CBC WBC 4.6. Hemoglobin 11.9 back at 35.9. MCV 76.9. 82 neutrophil. Sedimentation rate 10. Sodium 131. Potassium 3.1. Bicarbonate 19.8. BUN 77. Creatinine 2.8. Influenza AB antigen negative. Differential Diagnosis Differential diagnosis including viral syndrome, cephalgia, sinusitis, bronchitis, pneumonia, UTI, sepsis. Narrative Course 76-year-old female with headache, neck pain, coughing, body ache, nausea generalized malaise. Normal saline solution 1 L IV bolus. Zofran 4 mg IV. KCl 20 mEq IV given. Normal saline solution with 20 KCl per liter at 1 25 cc an hour. Diagnosis Primary Impression: Acute kidney injury Additional Impressions: Dehydration Hypokalemia Hyponatremia Admitting Information Admitting Physician Requests: Admit Michel Barros MD Nov 09, 2016 11:48
--- NOTE | 2016-11-09 12:14 | RADRPT ---
EXAM DATE/TIME: 11/09/2016 11:57 [facility] COMPARISON: No previous studies available for comparison. INDICATIONS : Cephalgia. Dizziness. Nausea. General weakness. RADIATION DOSE: 60.83 CTDIvol (mGy) MEDICAL HISTORY : Carcinoma, thyroid. SURGICAL HISTORY : Cholecystectomy. Hysterectomy. ENCOUNTER: Initial ACUITY: 1 week PAIN SCALE: 8/10 LOCATION: cranial TECHNIQUE: Multiple contiguous axial images were obtained of the head. Using automated exposure control and adj ustment of the mA and/or kV according to patient size, radiation dose was kept as low as reasonably a chievable to obtain optimal diagnostic quality images. DICOM format image data is available electro nically for review and comparison. FINDINGS: CEREBRUM: The ventricles are normal for age. No evidence of midline shift, mass lesion, hemorrhage or acute in farction. CSF density mass in the middle ear fossa on the left other atrophy or arachnoid cyst. POSTERIOR FOSSA: The cerebellum and brainstem are intact. The 4th ventricle is midline. The cerebellopontine angle i s unremarkable. EXTRACRANIAL: The visualized portion of the orbits is intact. SKULL: The calvaria is intact. No evidence of skull fracture. CONCLUSION: Negative for an acute process. Goldy Newman MD FACR on November 09, 2016 at 12:11 Board Certified Radiologist. This report was verified electronically.
--- NOTE | 2016-11-09 12:18 | RADRPT ---
EXAM DATE/TIME: 11/09/2016 11:46 [facility] COMPARISON: CHEST SINGLE AP, February 03, 2016, 22:34. INDICATIONS : General weakness and dizziness MEDICAL HISTORY : None. SURGICAL HISTORY : None. ENCOUNTER: Initial ACUITY: 2 days PAIN SCORE: 4/10 LOCATION: Bilateral chest FINDINGS: The lungs are clear. The heart is minimally enlarged. The pulmonary vascularity is normal. There is n o evidence for infiltrate or failure. The portion of the bony skeleton visualized is unremarkable. CONCLUSION: Compensated cardiomegaly otherwise negative Goldy Newman MD FACR on November 09, 2016 at 12:16 Board Certified Radiologist. This report was verified electronically.
[2016-11-09 12:31] LABS: AUTOMATED NEUTROPHIL # 3.7 TH/MM3 (1.8-7.7); BASOPHIL # 0.1 TH/MM3 (0-0.2); BASOPHIL % 1.1 % (0.0-2.0); EOSINOPHIL # 0.1 TH/MM3 (0-0.4); EOSINOPHIL % 1.3 % (0.0-4.0); HEMATOCRIT 35.9 % (35.0-46.0); LYMPH % 8.1 % (9.0-44.0); LYMPHOCYTE # 0.4 TH/MM3 (1.0-4.8); MEAN CELL VOLUME 76.9 FL (80.0-100.0); MEAN CORPUSCULAR HEMOGLOBIN 25.4 PG (27.0-34.0); MONO % 6.9 % (0.0-8.0); NEUT % 82.6 % (16.0-70.0); RED BLOOD COUNT 4.67 MIL/MM3 (4.00-5.30); RED CELL DISTRIBUTION WIDTH 18.1 % (11.6-17.2); WHITE BLOOD COUNT 4.6 TH/MM3 (4.0-11.0)
[2016-11-09 12:35] LABS: HEMO FLAGS AUTO DIFF
[2016-11-09 12:46] LABS: CHLORIDE 99 MEQ/L (98-107); POTASSIUM 3.1 MEQ/L (3.5-5.1); SODIUM (NA) 131 MEQ/L (136-145)
[2016-11-09 12:50] LABS: ANION GAP 12 MEQ/L (5-15); BICARBONATE 19.8 MEQ/L (21.0-32.0); BLOOD UREA NITROGEN 77 MG/DL (7-18)
[2016-11-09 12:52] LABS: APTT (PATIENT) 28.9 SEC (24.3-30.1); INTERNATIONAL NORMALIZED RATIO 1.1 RATIO; PROTHROMBIN TIME - PATIENT 12.4 SEC (9.8-11.6)
[2016-11-09 12:53] LABS: ALT (GPT) 41 U/L (10-53); AST (GOT) 36 U/L (15-37); GLOMERULAR FILTRATION RATE 16 ML/MIN (>89)
[2016-11-09 12:54] LABS: TOTAL BILIRUBIN ADULT 0.5 MG/DL (0.2-1.0)
[2016-11-09 12:56] LABS: ALKALINE PHOSPHATASE 40 U/L (45-117)
[2016-11-09 13:07] LABS: PLATELET COUNT 140 TH/MM3 (150-450)
[2016-11-09 13:08] LABS: SCAN/DIFF AUTO DIFF CONFIRMED
[2016-11-09] MEDS ORDERED: POTASSIUM CHLOR 20 MEQ PREMIX 100 ML IV ONE (13:15)
[2016-11-09] MEDS ORDERED: NS + KCL 20 MEQ INJ 1,000 ML IV SCH (13:15)
[2016-11-09] MEDS ORDERED: SODIUM CHLORIDE 0.9% FLUSH 10 ML FLUSH IV FLUSH PRN (13:30)
[2016-11-09] MEDS ORDERED: MAGNESIUM HYDROXIDE SUSP 30 ML CUP PO PRN (13:30)
[2016-11-09] MEDS ORDERED: NALOXONE HCL 0.4 MG/ML AMP IV PRN (13:30)
[2016-11-09] MEDS ORDERED: LACTULOSE SYRUP 20 GM/30 ML CUP PO PRN (13:30)
[2016-11-09] MEDS ORDERED: BISACODYL 10 MG SUPP RECTAL PRN (13:30)
[2016-11-09] MEDS: SODIUM CHLOR 0.45% 1000 ML INJ 1,000 ML IV SCH (13:45)
--- NOTE | 2016-11-09 15:07 | HHI.HP ---
[facility] Primary Care Physician Get Chacon MD Admission Diagnosis acute kidney injury. Dehydration. Electrolyte abnormality. Diagnoses: Chief Complaint: Myalgias and dehydration Travel History International Travel<30 Days: No Contact w/Intl Traveler <30 Da: No Traveled to Known Affected Are: No Sepsis Criteria SIRS Criteria (2 or more): Heart rate over 90 Severe Sepsis (+one): Hypotension, Hypoperfusion History of Present Illness Patient's 76-year-old failure with a history of hypothyroid is some due to thyroid cancer status post thyroidectomy who came to the emergency room complaining of severe dehydration and weakness for about a week. He has been progressive over the last week and a back she had increasing headaches which she called her primary care physician's office was in her probably to the emergency room. Here she has been tachycardic and hypotensive and weak overall. She reports having done full exercises at her senior group and feeling worn out and tired as well as with some associated fevers and chills and myalgias over the next 24-48 hours. By the third day she was so weak she couldn't get out of bed. She has had decreased oral intake since that time. She reports some nausea without vomiting without diarrhea. The patient has been taking Tylenol at home without improvement and she admits also history of Crohn's without exacerbation. Patient notes no sick contacts. She otherwise has been in good health. She has been admitted to the hospital due to severe hypotension with evidence of acute kidney injury a.m. with Review of Systems Constitutional: COMPLAINS OF: Fatigue, Fever, Chills, DENIES: Diaphoretic episodes, Weight gain, Weight loss, Dizziness, Change in appetite, Night Sweats Endocrine: DENIES: Abnorml menstrual pattern, Heat/cold intolerance, Polydipsia , Polyuria, Polyphagia Eyes: DENIES: Blurred vision, Diplopia, Eye inflammation, Eye pain, Vision loss , Photosensitivity, Double Vision Ears, nose, mouth, throat: DENIES: Tinnitus, Hearing loss, Vertigo, Nasal discharge, Oral lesions, Throat pain, Hoarseness, Ear Pain, Running Nose, Epistaxis, Sinus Pain, Toothache, Odynophagia Respiratory: DENIES: Apneas, Cough, Snoring, Wheezing, Hemoptysis, Sputum production, Shortness of breath Cardiovascular: DENIES: Chest pain, Palpitations, Syncope, Dyspnea on Exertion , PND, Lower Extremity Edema, Orthopnea, Claudication Gastrointestinal: DENIES: Abdominal pain, Black stools, Bloody stools, Constipation, Diarrhea, Nausea, Vomiting, Difficulty Swallowing, Anorexia Genitourinary: DENIES: Abnormal vaginal bleeding, Dysmenorrhea, Dyspareunia, Sexual dysfunction, Urinary frequency, Urinary incontinence, Urgency, Hematuria , Dysuria, Nocturia, Vaginal discharge Musculoskeletal: COMPLAINS OF: Muscle aches Integumentary: DENIES: Abnormal pigmentation, Pruritus, Rash, Nail changes, Breast masses, Breast skin changes, Nipple discharge Hematologic/lymphatic: DENIES: Bruising, Lymphadenopathy Neurologic: DENIES: Abnormal gait, Headache, Localized weakness, Paresthesias, Seizures, Speech Problems, Tremor, Poor Balance Psychiatric: DENIES: Anxiety, Confusion, Mood changes, Depression, Hallucinations, Agitation, Suicidal Ideation, Homicidal Ideation, Delusions Past Family Social History Past Medical History Thyroid cancer Hypothyroidism Crohn's Past Surgical History Thyroidectomy Reported Medications Reviewed in the medical record, nothing new Allergies: Coded Allergies: chloramphenicol (Unverified Allergy, Severe, 11/09/16) codeine (Unverified Allergy, Severe, 11/09/16) erythromycin base (Unverified Allergy, Unknown, 11/09/16) Active Ordered Medications Reviewed in the medical record Family History Father at 91 from heart failure complications, mother at 91 from a stroke Social History No tobacco or alcohol dependency, exercises daily, lives with her spouse Physical Exam Vital Signs Vital Signs Date Time Temp Pulse Resp B/P (MAP) Pulse Ox O2 Delivery O2 Flow Rate FiO2 11/09/16 14:21 11/09/16 14:03 98 18 103/60 (74) 95 Nasal Cannula 2.00 11/09/16 12:52 102 18 95/53 (67) 95 Nasal Cannula 2.00 11/09/16 12:35 98.9 104 18 84/53 (63) 94 Nasal Cannula 2.00 11/09/16 12:30 108 20 84/53 (63) 91 Room Air 11/09/16 12:30 90 Nasal Cannula 2.00 11/09/16 11:52 110 17 96/49 (65) 94 Room Air 11/09/16 11:49 93 Room Air 11/09/16 11:17 98.7 118 18 94/59 (71) Physical Exam GENERAL: This is an elderly well-nourished, well-developed patient, who appears worn out and fatigued SKIN: No rashes, ecchymoses or lesions. Cool and dry. HEAD: Atraumatic. Normocephalic. No temporal or scalp tenderness. EYES: Pupils equal round and reactive. Extraocular motions intact. No scleral icterus. No injection or drainage. ENT: Nose without bleeding, purulent drainage or septal hematoma. Throat without erythema, tonsillar hypertrophy or exudate. Uvula midline. Airway patent. NECK: Trachea midline. No JVD or lymphadenopathy. Supple, nontender, no meningeal signs. CARDIOVASCULAR: Sinus tachycardia without murmurs, gallops, or rubs. RESPIRATORY: Clear to auscultation. Breath sounds equal bilaterally. No wheezes , rales, or rhonchi. GASTROINTESTINAL: Abdomen soft, non-tender, nondistended. No hepato-splenomegaly , or palpable masses. No guarding. MUSCULOSKELETAL: Extremities without clubbing, cyanosis, or edema. No joint tenderness, effusion, or edema noted. No calf tenderness. Negative Homans sign bilaterally. NEUROLOGICAL: Awake and alert. Cranial nerves II through XII intact. Motor and sensory grossly within normal limits. Five out of 5 muscle strength in all muscle groups. Normal speech. Laboratory Laboratory Tests Test 11/09/16 12:20 White Blood Count 4.6 Red Blood Count 4.67 Hemoglobin 11.9 Hematocrit 35.9 Mean Corpuscular Volume 76.9 Mean Corpuscular Hemoglobin 25.4 Mean Corpuscular Hemoglobin Concent 33.0 Red Cell Distribution Width 18.1 Platelet Count 140 Mean Platelet Volume 12.2 Neutrophils (%) (Auto) 82.6 Lymphocytes (%) (Auto) 8.1 Monocytes (%) (Auto) 6.9 Eosinophils (%) (Auto) 1.3 Basophils (%) (Auto) 1.1 Neutrophils # (Auto) 3.7 Lymphocytes # (Auto) 0.4 Monocytes # (Auto) 0.3 Eosinophils # (Auto) 0.1 Basophils # (Auto) 0.1 CBC Comment AUTO DIFF Differential Comment AUTO DIFF CONFIRMED Erythrocyte Sedimentation Rate 10 Prothrombin Time 12.4 Prothromb Time International Ratio 1.1 Activated Partial Thromboplast Time 28.9 Blood Urea Nitrogen 77 Creatinine 2.80 Random Glucose 118 Total Protein 5.9 Albumin 2.2 Calcium Level 8.2 Alkaline Phosphatase 40 Aspartate Amino Transf (AST/SGOT) 36 Alanine Aminotransferase (ALT/SGPT) 41 Total Bilirubin 0.5 Sodium Level 131 Potassium Level 3.1 Chloride Level 99 Carbon Dioxide Level 19.8 Anion Gap 12 Estimat Glomerular Filtration Rate 16 Lipase 235 Date/Time Source Procedure Growth Status 11/09/16 12:25 Nasal Washing Influenza Types A,B Antigen (ARNOLDO) - Final NEGATIVE FOR FLU A AND B ANTIGEN.... Complete Result Diagram: 11/09/16 1220 11/09/16 1220 Imaging Last Impressions Head CT 11/09/16 113 Signed Impressions: Service Date/Time: Wednesday, November 09, 2016 11:57 - CONCLUSION: Negative for an acute process. Goldy Newman MD FACR Chest X-Ray 11/09/[id number] Signed Impressions: Service Date/Time: Wednesday, November 09, 2016 11:46 - CONCLUSION: Compensated cardiomegaly otherwise negative Goldy Newman MD FACR Caprini VTE Risk Assessment Caprini VTE Risk Assessment: Mod/High Risk (score >= 2) Caprini Risk Assessment Model Point Value = 1 Point Value = 2 Point Value = 3 Point Value = 5 Age 41-60 Minor surgery BMI > 25 kg/m2 Swollen legs Varicose veins or History of unexplained or recurrent spontaneous Oral contraceptives or hormone replacement Sepsis (< 1 month) Serious lung disease, including pneumonia (< 1 month) Abnormal pulmonary function Acute myocardial infarction Congestive heart failure (< 1 month) History of inflammatory bowel disease Medical patient at bed rest Age 61-74 Arthroscopic surgery Major open surgery (> 45 min) Laparoscopic surgery (> 45 min) Malignancy Confined to bed (> 72 hours) Immobilizing plaster cast Central venous access Age >= 75 History of VTE Family history of VTE Factor V Leiden Prothrombin [id number] Lupus anticoagulant Anticardiolipin antibodies Elevated serum homocysteine Heparin-induced thrombocytopenia Other congenital or acquired thrombophilia Stroke (< 1 month) Elective arthroplasty Hip, pelvis, or leg fracture Acute spinal cord injury (< 1 month) Prophylaxis Regimen Total Risk Factor Score Risk Level Prophylaxis Regimen 0-1 Low Early ambulation 2 Moderate Order ONE of the following: *Sequential Compression Device (SCD) *Heparin 5000 units SQ BID 3-4 Higher Order ONE of the following medications: *Heparin 5000 units SQ TID *Enoxaparin/Lovenox 40 mg SQ daily (WT < 150 kg, CrCl > 30 mL/min) *Enoxaparin/Lovenox 30 mg SQ daily (WT < 150 kg, CrCl > 10-29 mL/min) *Enoxaparin/Lovenox 30 mg SQ BID (WT < 150 kg, CrCl > 30 mL/min) AND/OR *Sequential Compression Device (SCD) 5 or more Highest Order ONE of the following medications: *Heparin 5000 units SQ TID (Preferred with Epidurals) *Enoxaparin/Lovenox 40 mg SQ daily (WT < 150 kg, CrCl > 30 mL/min) *Enoxaparin/Lovenox 30 mg SQ daily (WT < 150 kg, CrCl > 10-29 mL/min) *Enoxaparin/Lovenox 30 mg SQ BID (WT < 150 kg, CrCl > 30 mL/min) AND *Sequential Compression Device (SCD) Assessment and Plan Problem List: (1) Viral syndrome ICD Code: B34.9 - Viral infection, unspecified Plan: with metabolic acidosis from dehydration supportive care follow up cultures (2) Hyponatremia ICD Code: E87.1 - Hypo-osmolality and hyponatremia Status: Acute Plan: Likely due to dehydration, we'll continue IV fluids and follow trend (3) Hypokalemia ICD Code: E87.6 - Hypokalemia Status: Acute Plan: replace and check (4) Acute kidney injury ICD Code: N17.9 - Acute kidney failure, unspecified Status: Acute Plan: Likely due to severe dehydration with patient not having eaten in all muscle week Continue IV fluids, recheck If no improvement will work of acute kidney injury from other causes (5) Hypotension ICD Code: I95.9 - Hypotension, unspecified Plan: Continue to monitor with IV hydration and follow-up Discussed Condition With Patient, Serena Sheppard M.D., MD Nov 09, 2016 15:07
[2016-11-09] MEDS: diphenhydrAMINE HCL 25 MG CAP PO PRN (16:32)
--- NOTE | 2016-11-09 19:39 | EKG ---
Date Performed: 11/09/2016 Time Performed: 11:48:44 PTAGE: 76 years EKG: SINUS TACHYCARDIA WITH OCCASIONAL SUPRAVENTRICULAR PREMATURE COMPLEXES NONSPECIFIC T-WAVE A BNORMALITY ABNORMAL RHYTHM ECG PREVIOUS TRACING : 07/25/2016 00.49 Compared to prior tracing no significant change DOCTOR: Danish Martinez Interpretating Date/Time 11/09/2016 19:37:53
[2016-11-09] MEDS: SODIUM CHLORIDE 0.9% FLUSH 10 ML FLUSH IV FLUSH SCH (21:00)
[2016-11-09] MEDS: HEPARIN SODIUM - SQ 10,000 UNITS/ML VIAL SQ SCH (21:00)
[2016-11-09] MEDS: DOCUSATE SODIUM 50 MG/SENNA 8.6 MG TAB PO SCH (21:00)
[2016-11-09] MEDS: ACETAMINOPHEN 325 MG TAB PO PRN (23:01)
[2016-11-09] MEDS: ONDANSETRON HCL 4 MG/2 ML VIAL IV PUSH PRN (23:40)
[2016-11-10 00:16] VITALS: BP 105/56; PULSE 97; RESP 18; TEMP 100.1; O2SAT 97
[2016-11-10] MEDS: SODIUM CHLOR 0.45% 1000 ML INJ 1,000 ML IV SCH ×2 (02:31→16:49)
[2016-11-10] MEDS: LEVOTHYROXINE SODIUM 125 MCG TAB PO SCH (07:40)
[2016-11-10 07:52] LABS: CHLORIDE 103 MEQ/L (98-107); POTASSIUM 3.2 MEQ/L (3.5-5.1); SODIUM (NA) 135 MEQ/L (136-145)
[2016-11-10 08:00] VITALS: BP 112/55; PULSE 126; RESP 18; TEMP 101.1; O2SAT 96
[2016-11-10 08:00] LABS: ANION GAP 13 MEQ/L (5-15); BICARBONATE 19.4 MEQ/L (21.0-32.0); BLOOD UREA NITROGEN 74 MG/DL (7-18)
[2016-11-10 08:02] LABS: AST (GOT) 32 U/L (15-37)
[2016-11-10 08:03] LABS: ALT (GPT) 40 U/L (10-53); GLOMERULAR FILTRATION RATE 20 ML/MIN (>89)
[2016-11-10 08:04] LABS: TOTAL BILIRUBIN ADULT 0.4 MG/DL (0.2-1.0)
[2016-11-10 08:05] LABS: ALKALINE PHOSPHATASE 42 U/L (45-117)
[2016-11-10] MEDS ORDERED: POTASSIUM CHLORIDE 10 MEQ CONTROLLED RELEASE TAB PO ONE (08:15)
[2016-11-10] MEDS: SODIUM CHLORIDE 0.9% FLUSH 10 ML FLUSH IV FLUSH SCH ×2 (09:00→21:24)
[2016-11-10] MEDS: PANTOPRAZOLE SOD 20 MG DELAYED RELEASE TAB PO SCH (09:06)
[2016-11-10] MEDS: DOCUSATE SODIUM 50 MG/SENNA 8.6 MG TAB PO SCH ×2 (09:06→21:24)
[2016-11-10] MEDS: HEPARIN SODIUM - SQ 10,000 UNITS/ML VIAL SQ SCH ×3 (09:06→21:28)
[2016-11-10] MEDS: ACETAMINOPHEN 325 MG TAB PO PRN ×2 (09:12→15:53)
--- NOTE | 2016-11-10 10:28 | HHI.PR ---
Subjective Remarks Since and evaluated today for fever and chills with evidence of dehydration and acute kidney injury Renal function somewhat improved Patient now with MAXIMUM TEMPERATURE 101. Blood pressures improved and leukocytosis are improved. Patient now complaining of diarrhea which is similar to Crohn's related stool pattern in the past. She has some increased abdominal discomfort today. Care plan discussed with patient and spouse Objective Vitals Vital Signs Date Time Temp Pulse Resp B/P (MAP) Pulse Ox O2 Delivery O2 Flow Rate FiO2 11/10/16 08:00 101.1 126 18 112/55 (74) 96 11/10/16 00:16 100.1 97 18 105/56 (72) 97 11/09/16 20:16 98.9 88 20 109/61 (77) 97 11/09/16 16:25 98.6 75 17 106/72 (83) 11/09/16 15:23 98.6 75 17 106/72 (83) 94 11/09/16 15:00 98.6 75 17 106/75 (85) 94 11/09/16 14:21 11/09/16 14:03 98 18 103/60 (74) 95 Nasal Cannula 2.00 11/09/16 12:52 102 18 95/53 (67) 95 Nasal Cannula 2.00 11/09/16 12:35 98.9 104 18 84/53 (63) 94 Nasal Cannula 2.00 11/09/16 12:30 108 20 84/53 (63) 91 Room Air 11/09/16 12:30 90 Nasal Cannula 2.00 11/09/16 11:52 110 17 96/49 (65) 94 Room Air 11/09/16 11:49 93 Room Air 11/09/16 11:17 98.7 118 18 94/59 (71) I/O 11/09/16 11/09/16 11/09/16 11/10/16 11/10/16 11/10/16 07:00 15:00 23:00 07:00 15:00 23:00 Intake Total 1000 ml Balance 1000 ml Intake IV Total 1000 ml # Voids 1 0 Result Diagram: 11/09/16 1220 11/10/16 0015 Objective Remarks GENERAL: This is a well-nourished, well-developed patient, complaining of chills CARDIOVASCULAR: Regular rate and rhythm without murmurs, gallops, or rubs. RESPIRATORY: Clear to auscultation. Breath sounds equal bilaterally. No wheezes , rales, or rhonchi. GASTROINTESTINAL: Abdomen soft, non-tender, nondistended. Normal active bowel sounds MUSCULOSKELETAL: Extremities without clubbing, cyanosis, or edema. NEURO: Alert & Oriented x4 to person, place, time, situation. Moves all ext x4 A/P Problem List: (1) Viral syndrome ICD Code: B34.9 - Viral infection, unspecified Plan: with metabolic acidosis from dehydration supportive care follow up blood cultures, ct abd/pelvis (2) Hyponatremia ICD Code: E87.1 - Hypo-osmolality and hyponatremia Status: Acute Plan: improved Likely due to dehydration, we'll continue IV fluids and follow trend (3) Hypokalemia ICD Code: E87.6 - Hypokalemia Status: Acute Plan: replace and check (4) Acute kidney injury ICD Code: N17.9 - Acute kidney failure, unspecified Status: Acute Plan: Likely due to severe dehydration with patient not having eaten in all muscle week Continue IV fluids, recheck If no improvement will work of acute kidney injury from other causes f/u ct (5) Hypotension ICD Code: I95.9 - Hypotension, unspecified Plan: improved with ivf Continue to monitor with IV hydration and follow-up Serena Chery MD Nov 10, 2016 10:28
[2016-11-10 12:00] VITALS: BP 110/68; PULSE 100; RESP 17; TEMP 99.1; O2SAT 95
--- NOTE | 2016-11-10 12:42 | RADRPT ---
EXAM DATE/TIME: 11/10/2016 11:41 [facility] COMPARISON: No previous studies available for comparison. INDICATIONS : Acute kidney injury and dehydration. Abdominal pain. ORAL CONTRAST: No oral contrast ingested. RADIATION DOSE: 20.27 CTDIvol (mGy) MEDICAL HISTORY : Carcinoma, thyroid. SURGICAL HISTORY : Hysterectomy. Cholecystectomy. ENCOUNTER: Initial ACUITY: 1 day PAIN SCALE: 2/10 LOCATION: abdominal TECHNIQUE: Volumetric scanning of the abdomen and pelvis was performed. Using automated exposure control and ad justment of the mA and/or kV according to patient size, radiation dose was kept as low as reasonably achievable to obtain optimal diagnostic quality images. DICOM format image data is available electro nically for review and comparison. FINDINGS: LOWER LUNGS: Minimal bibasilar parenchymal changes are evident with trace fluid on the left. LIVER: Homogeneous density without lesion. There is no dilation of the biliary tree. No calcified gallston es. SPLEEN: Normal size without lesion. PANCREAS: Within normal limits. ADRENAL GLANDS: Within normal limits. RIGHT KIDNEY: Normal in size and shape. There is no mass, stone, or hydronephrosis. LEFT KIDNEY: Normal in size and shape. There is no mass, stone, or hydronephrosis.. VASCULAR: There is no evidence for renal artery stenosis. BOWEL/MESENTERY: Scattered nonspecific air-fluid levels without evidence for obstruction RETROPERITONEUM: There is no lymphadenopathy. PELVIC CONTENTS: Scattered diverticula are noted without inflammatory changes. ABDOMINAL WALL: Within normal limits. INGUINAL: There is no lymphadenopathy or hernia. MUSCULOSKELETAL: Moderate degenerative changes are present in the lower lumbar spine. CONCLUSION: I don't see an abscess or free fluid to suggest an exacerbation of Crohn's disease. There is no asymmetrical bowel dilatation. Goldy Newman MD FACR on November 10, 2016 at 12:38 Board Certified Radiologist. This report was verified electronically.
[2016-11-10 16:00] VITALS: BP 110/75; PULSE 100; RESP 18; TEMP 99.2; O2SAT 96
[2016-11-10 20:20] VITALS: BP 80/64; PULSE 97; RESP 22; TEMP 96.8; O2SAT 97
[2016-11-11] VITALS (9 sets, daily range): BP systolic 106–138; BP diastolic 58–74; PULSE 70–114; RESP 16–25; TEMP 96.6–100.8; O2SAT 93–98
[2016-11-11 00:20] LABS: BLOOD, URINE MOD (NEG); GLUCOSE,URINE NEG (NEG); KETONE, URINE NEG (NEG); NITRITE,URINE NEG (NEG); PH, URINE 5.5 (5.0-8.5)
[2016-11-11 00:26] LABS: BACTERIA, URINE FEW /hpf; COMMENT (UR) CULTURE INDICATED; CULTURE IF INDICATED CULTURE INDICATED; SQUAMOUS EPITHELIAL CELL URINE 0-5 /hpf (0-5); URINE COLOR YELLOW (YELLW/STRAW)
[2016-11-11] MEDS: ACETAMINOPHEN 325 MG TAB PO PRN ×2 (03:04→14:36)
[2016-11-11] MEDS: LEVOTHYROXINE SODIUM 125 MCG TAB PO SCH (05:07)
[2016-11-11] MEDS: SODIUM CHLOR 0.45% 1000 ML INJ 1,000 ML IV SCH (05:07)
[2016-11-11 07:24] LABS: HEMATOCRIT 34.3 % (35.0-46.0); MEAN CELL VOLUME 78.6 FL (80.0-100.0); MEAN CORPUSCULAR HEMOGLOBIN 25.5 PG (27.0-34.0); MEAN CORPUSCULAR HGB CONC 32.4 % (32.0-36.0); RED BLOOD COUNT 4.36 MIL/MM3 (4.00-5.30); RED CELL DISTRIBUTION WIDTH 18.2 % (11.6-17.2); WHITE BLOOD COUNT 4.4 TH/MM3 (4.0-11.0)
[2016-11-11 07:32] LABS: POTASSIUM 3.3 MEQ/L (3.5-5.1)
[2016-11-11 07:36] LABS: BICARBONATE 17.1 MEQ/L (21.0-32.0)
[2016-11-11] MEDS: HEPARIN SODIUM - SQ 10,000 UNITS/ML VIAL SQ SCH ×2 (08:46→20:56)
[2016-11-11] MEDS: SODIUM CHLORIDE 0.9% FLUSH 10 ML FLUSH IV FLUSH SCH ×2 (08:47→20:56)
[2016-11-11 08:48] LABS: HEMO FLAGS AUTO DIFF
[2016-11-11 08:54] LABS: BANDS 30 % (0-6); BASOPHILS 1 % (0-2); METAMYELOCYTES 1 % (0-1); NEUTROPHIL # MANUAL DIFF 3.5 TH/MM3 (1.8-7.7); POLYS (SEG NEUTROPHILS) 49 % (16-70); WBC DIFF SAMPLE 100
[2016-11-11 08:55] LABS: PLATELET ESTIMATE SMEAR LOW (NORMAL); PLATELET MORPHOLOGY ENLARGED (NORMAL); SCAN/DIFF FINAL DIFF MANUAL
[2016-11-11] MEDS: PANTOPRAZOLE SOD 20 MG DELAYED RELEASE TAB PO SCH (08:56)
[2016-11-11] MEDS: DOCUSATE SODIUM 50 MG/SENNA 8.6 MG TAB PO SCH ×3 (08:56→21:00)
[2016-11-11] MEDS: cefTRIAXone INJ 1,000 MG in SODIUM CHLORIDE 0.9% INJ 100 ML IV SCH (08:56)
[2016-11-11] MEDS: POTASSIUM CHLORIDE 10 MEQ CONTROLLED RELEASE TAB PO SCH ×2 (09:30→20:56)
[2016-11-11 09:34] LABS: BLOOD GAS BASE EXCESS -10.3 mmol/L (-2-2); BLOOD GAS CARBOXYHEMOGLOBIN 1.5 % (0-4); BLOOD GAS HCO3 14 mmol/L (22-26); BLOOD GAS O2 HGB SATURATION 89 % (90-100); BLOOD GAS OXYGEN CONTENT 13.6 Vol % (12.0-20.0); BLOOD GAS PCO2 27 mmHG (38-42); BLOOD GAS PO2 64 mmHG (61-120); BLOOD GAS TOTAL HGB 10.9 G/DL (12.0-16.0); CRITICAL VALUE YES; OXYGEN DEVICE RA; TEMP CORR TO 98.6
[2016-11-11 09:35] LABS: DRAW SITE LT RADIAL; FIO2 21 %; NUMBER OF ARTERIAL PUNCTURES 1; STAT NO; ULNAR PULSE PRESENT
[2016-11-11] MEDS: SODIUM BICARBONATE 8.4% INJ 75 MEQ in SODIUM CHLOR 0.45% 1000 ML INJ 1,000 ML IV SCH (10:43)
--- NOTE | 2016-11-11 11:18 | HHI.PR ---
Subjective Remarks Patient with fever 100.8, urinalysis obtained and is abnormal. Patient now appears more acidotic. Lactic acid is normal. Care plan discussed with patient and nursing team Objective Vitals Vital Signs Date Time Temp Pulse Resp B/P (MAP) Pulse Ox O2 Delivery O2 Flow Rate FiO2 11/11/16 10:14 94 Nasal Cannula 2.00 11/11/16 08:00 98.1 70 20 131/74 (93) 98 11/11/16 04:41 96.6 11/11/16 03:00 100.8 11/11/16 01:01 97.9 110 18 106/69 (81) 98 11/10/16 20:20 96.8 97 22 80/64 (69) 97 11/10/16 17:30 22 11/10/16 16:00 99.2 100 18 110/75 (87) 96 11/10/16 12:00 99.1 100 17 110/68 (82) 95 I/O 11/10/16 11/10/16 11/10/16 11/11/16 11/11/16 11/11/16 07:00 15:00 23:00 07:00 15:00 23:00 Intake Total 1300 ml 2072 ml Balance 1300 ml 2072 ml Intake Oral 240 ml IV Total 1300 ml 1832 ml # Voids 0 2 # Bowel Movements 1 1 Result Diagram: 11/11/16 0640 11/11/16 0640 Objective Remarks GENERAL: This is a well-nourished, well-developed patient, complaining of chills CARDIOVASCULAR: Regular rate and rhythm without murmurs, gallops, or rubs. RESPIRATORY: Clear to auscultation. Breath sounds equal bilaterally. No wheezes , rales, or rhonchi. GASTROINTESTINAL: Abdomen soft, non-tender, nondistended. Normal active bowel sounds MUSCULOSKELETAL: Extremities without clubbing, cyanosis, or edema. NEURO: Alert & Oriented x4 to person, place, time, situation. Moves all ext x4 A/P Problem List: (1) Viral syndrome ICD Code: B34.9 - Viral infection, unspecified Plan: with metabolic acidosis from dehydration supportive care follow up blood cultures, ct abd/pelvis unremarkable Continue empiric Rocephin for probable UTI (2) Hyponatremia ICD Code: E87.1 - Hypo-osmolality and hyponatremia Status: Acute Plan: improved Likely due to dehydration, we'll continue IV fluids and follow trend (3) Acute kidney injury ICD Code: N17.9 - Acute kidney failure, unspecified Status: Acute Plan: Likely due to severe dehydration with patient not having eaten in all week Rule out acute kidney injury from other causes Renal consult pending (4) Hypotension ICD Code: I95.9 - Hypotension, unspecified Plan: improved with ivf Continue to monitor with IV hydration and follow-up (5) Metabolic acidosis ICD Code: E87.2 - Acidosis Plan: Patient seen with evidence of acidosis today. Likely from infectious causes. ABG reviewed. We'll follow blood cultures and continue empiric antibiotics for UTI Assessment and Plan heparin q12 Serena Chery MD Nov 11, 2016 11:18
--- NOTE | 2016-11-11 17:21 | RADRPT ---
EXAM DATE/TIME: 11/11/2016 15:54 [facility] COMPARISON: No previous studies available for comparison. INDICATIONS : Increased BUN/Creatinine. MEDICAL HISTORY : Carcinoma, thyroid. Crohn's disease. Anticoagulant therapy, Aspirin. Blood transfusion. SURGICAL HISTORY : Cholecystectomy. Hysterectomy. Tonsillectomy. Ovarian cyst removal. Thyroid surgery. ENCOUNTER: Initial ACUITY: 1 day PAIN SCORE: 2/10 LOCATION: Bilateral flank MEASUREMENTS: RIGHT KIDNEY: 11.3 x 5.5 x 5.6 cm LEFT KIDNEY: 11.3 x 6.2 x 5.5 cm FINDINGS: RIGHT KIDNEY: Renal cortex is normal in thickness and echotexture. No hydronephrosis, stone, or mass. LEFT KIDNEY: Renal cortex is normal in thickness and echotexture. No hydronephrosis, stone, or mass. BLADDER: Within normal limits given the degree of distension. CONCLUSION: Unremarkable renal ultrasound. There is no hydronephrosis. Goldy Newman MD FACR on November 11, 2016 at 17:19 Board Certified Radiologist. This report was verified electronically.
[2016-11-11] MEDS: diphenhydrAMINE HCL 25 MG CAP PO PRN (18:25)
[2016-11-12] VITALS (7 sets, daily range): BP systolic 93–124; BP diastolic 56–76; PULSE 99–132; RESP 17–22; TEMP 96.2–100; O2SAT 92–97
[2016-11-12] MEDS: LEVOTHYROXINE SODIUM 125 MCG TAB PO SCH (05:18)
[2016-11-12] MEDS: ACETAMINOPHEN 325 MG TAB PO PRN ×2 (05:40→15:57)
--- NOTE | 2016-11-12 06:49 | MB ---
cc: STEPH FOFANA MD DATE OF CONSULTATION 11/11/2016 REASON FOR CONSULTATION Elevated BUN and creatinine for evaluation. HISTORY OF PRESENT ILLNESS This is a 76-year-old female with a past medical history of thyroid cancer, hypothyroidism, Crohn's disease with chronic loose bowel motions who came to the hospital with complaint of generalized weakness and nausea and vomiting. I was called to see the patient because of elevated BUN and creatinine. The patient was found to have BUN of 77 and creatinine of 2.8 on admission. Previously she had creatinine of 0.5 in July of this year. Creatinine improved to 2.4 and has been the same, potassium on the lower side. Patient has chronic loose bowel motions because of the Crohn's disease and she was started on IV fluid on admission. She was diagnosed with dehydration and she admits that she has nausea and off and on she has vomiting and decreased appetite and also has loose bowel motions. There is no history of fever. She does not have any fever. She has history of taking nonsteroidal anti-inflammatory drugs especially ibuprofen off and on for arthritis. She did not have any history of dysuria or hematuria. There is no history of renal stones. She denies any previous history of renal disease. PAST MEDICAL HISTORY 1. Hypothyroidism. 2. Thyroid cancer. 3. Crohn's disease. PAST SURGICAL HISTORY Thyroidectomy. REVIEW OF SYSTEMS The patient has generalized weakness, feeling tired, has decreased appetite, nausea off and on, occasionally has vomiting but now the vomiting is better. There is a history of loose bowel motions because of the Crohn's disease. She has no dysuria, hematuria, history of renal stones. She has been taking ibuprofen off and on for arthritis. SOCIAL HISTORY The patient is . There is no history of smoking. FAMILY HISTORY The family history is noncontributory. ALLERGIES ALLERGIC TO CHLORAMPHENICOL CODEINE. ERYTHROMYCIN. MEDICATIONS Currently she is on the following medications - 1. IV fluids - she is getting sodium bicarbonate. 2. Tram-Colace 1 tablet b.i.d. 3. Protonix 20 mg once a day. 4. Synthroid 125 mcg daily. 5. Heparin 5000 units subcu q. 12 hours. 6. Potassium chloride 30 mg q. 12 hours. 7. Ceftriaxone 1 gram IV q. 24 hours. 8. Narcan as needed. 9. Senokot as needed. 10. Lactulose as needed. PHYSICAL EXAMINATION GENERAL: The patient is awake and alert. She is not in acute distress. VITAL SIGNS: Last blood pressure was 123/67, temperature 98.2, oxygen saturation 98% on 2 liters cannula. Her blood pressure has been off and on . She came in here and the lowest recorded was 85/53. HEENT: Pupils are mid-constricted. Nonicteric sclerae. Conjunctivae normal. NECK: Supple. JVD is not evident. The patient has bilateral good air entry with occasional wheezing. HEART: S1, S2. Regular rhythm. ABDOMEN: Soft, lax. There is no tenderness. Bowel sounds positive. EXTREMITIES: She has no pedal edema. INVESTIGATIONS WBC count is 4.4, hemoglobin 11.1, platelet count of 90-110. Sodium is 135, potassium 3.3, chloride 105, bicarb 17.1, BUN 69, creatinine 2.4, glucose 68, calcium 8.4, lactic acid is 1.1, AST and ALT normal, total protein is 5.8 with albumin of 2.3. INR 1.1. Urinalysis showing protein of 30, RBC 4 to 9 and WBCs 9 to 4. IMAGING STUDIES The patient had ultrasound of the kidneys done which showed that she has normal-sized kidneys. The left forehead one is 11.3 cm and the right one is also 11.3 cm and there is no hydronephrosis. CT scan of the abdomen and pelvis was done without IV contrast and it shows no abscess or free fluid. No asymmetrical bowel dilatation. CT scan of the brain was done and it was negative for any acute process. ASSESSMENT AND PLAN 1. Acute kidney injury. 2. Metabolic acidosis and hypokalemia. 3. Possible urinary tract infection. 4. Dehydration. 5. Hypotension. 6. History of Crohn's disease. 7. Hypothyroidism. The patient has low potassium and has metabolic acidosis. Most likely this is related to chronic loose bowel motions because of the Crohn's disease. She has been getting potassium supplement and IV fluids, sodium bicarbonate. I agree with continuing this at present and she is getting ceftriaxone although her urine culture is still pending. The blood culture is not showing any growth. She also has some hematuria, could be related to UTI but I will check her for vasculitis including SPENCER, ANC and complements and also I will get the urine for eosinophils for an interstitial nephritis. Acute kidney injury either could be ATN from the hypotension or possibility of any other systemic disease for which the workup will be done as mentioned above. Avoid nephrotoxins especially nonsteroidal anti-inflammatory drugs. This was told to the patient. Thank you for the consultation. I will follow the patient while she is in the hospital. Steph Fofana MD AQJ/SSB /10:01 PM /6:26 AM
[2016-11-12] MEDS: LEVOTHYROXINE SODIUM 25 MCG TAB PO SCH (07:30)
[2016-11-12] MEDS: LEVOTHYROXINE SODIUM 112 MCG TAB PO SCH (07:30)
[2016-11-12] MEDS ORDERED: LEVOTHYROXINE SODIUM 112 MCG TAB PO SCH (07:30)
[2016-11-12 07:39] LABS: POTASSIUM 3.5 MEQ/L (3.5-5.1)
[2016-11-12 07:44] LABS: BICARBONATE 17.3 MEQ/L (21.0-32.0)
[2016-11-12] MEDS: SODIUM CHLORIDE 0.9% FLUSH 10 ML FLUSH IV FLUSH SCH ×2 (09:00→21:37)
[2016-11-12] MEDS: DOCUSATE SODIUM 50 MG/SENNA 8.6 MG TAB PO SCH (09:00)
[2016-11-12] MEDS: PANTOPRAZOLE SOD 20 MG DELAYED RELEASE TAB PO SCH (09:21)
[2016-11-12] MEDS: HEPARIN SODIUM - SQ 10,000 UNITS/ML VIAL SQ SCH ×2 (09:22→21:37)
[2016-11-12] MEDS: POTASSIUM CHLORIDE 10 MEQ CONTROLLED RELEASE TAB PO SCH ×2 (09:22→21:36)
[2016-11-12] MEDS: cefTRIAXone INJ 1,000 MG in SODIUM CHLORIDE 0.9% INJ 100 ML IV SCH (09:22)
[2016-11-12] MEDS: diphenhydrAMINE HCL 25 MG CAP PO PRN (10:40)
[2016-11-12] MEDS: SODIUM BICARBONATE 8.4% INJ 75 MEQ in SODIUM CHLOR 0.45% 1000 ML INJ 1,000 ML IV SCH (10:40)
--- NOTE | 2016-11-12 11:11 | HHI.PR ---
Subjective Remarks Patient seen and evaluated in follow-up for weakness, malaise and fever likely viral syndrome. Urine culture is positive only for low quantities of mixed bre. Patient has been tachycardic. She reports increased work of breathing. Fever appears resolved. No leukocytosis. Still with acute kidney injury requiring bicarbonate. Care plan discussed with patient, and Laury HURTADO Objective Vitals Vital Signs Date Time Temp Pulse Resp B/P (MAP) Pulse Ox O2 Delivery O2 Flow Rate FiO2 11/12/16 10:29 96 Nasal Cannula 3.00 11/12/16 08:00 98.5 103 19 94/56 (69) 97 11/12/16 00:00 99.0 118 22 124/57 (79) 95 11/11/16 20:00 97.6 114 16 138/58 (84) 93 11/11/16 19:54 98 Nasal Cannula 2.00 11/11/16 16:00 98.2 75 21 123/67 (85) 95 11/11/16 15:40 16 11/11/16 12:00 98.2 96 25 133/67 (89) 93 I/O 11/11/16 11/11/16 11/11/16 11/12/16 11/12/16 11/12/16 07:00 15:00 23:00 07:00 15:00 23:00 Intake Total 2072 ml 100 ml 580 ml 835 ml Output Total 500 ml Balance 2072 ml 100 ml 80 ml 835 ml Intake Oral 240 ml 240 ml IV Total 1832 ml 100 ml 340 ml 835 ml Output Urine Total 500 ml # Voids 2 8 # Bowel Movements 1 Result Diagram: 11/11/16 0640 11/12/16 0651 Objective Remarks GENERAL: This is a well-nourished, well-developed patient, complaining of chills CARDIOVASCULAR: Regular rate and rhythm without murmurs, gallops, or rubs. RESPIRATORY: Crackles bilateral bases. No wheezes, rales, or rhonchi. GASTROINTESTINAL: Abdomen soft, non-tender, nondistended. Normal active bowel sounds MUSCULOSKELETAL: Extremities without clubbing, cyanosis, or edema. NEURO: Alert & Oriented x4 to person, place, time, situation. Moves all ext x4 A/P Problem List: (1) Viral syndrome ICD Code: B34.9 - Viral infection, unspecified Plan: with metabolic acidosis from dehydration supportive care follow up blood cultures, ct abd/pelvis unremarkable d/c rocephin repeat CXRay (2) Hyponatremia ICD Code: E87.1 - Hypo-osmolality and hyponatremia Status: Acute Plan: improved Likely due to dehydration, we'll continue IV fluids and follow trend (3) Acute kidney injury ICD Code: N17.9 - Acute kidney failure, unspecified Status: Acute Plan: Continue supportive care to avoid nephrotoxic injury Renal consult appreciated Ultrasound unremarkable Urine cultures show low CFU normal complement levels (4) Hypotension ICD Code: I95.9 - Hypotension, unspecified Plan: improved with ivf Continue to monitor with IV hydration and follow-up (5) Metabolic acidosis ICD Code: E87.2 - Acidosis Plan: Patient seen with evidence of acidosis today. Likely from infectious causes. Lactic acid is negative, continue patient with current treatment with IV bicarbonate Assessment and Plan heparin q12 Serena Chery MD Nov 12, 2016 11:11
[2016-11-12] MEDS ORDERED: LOPERAMIDE HCL 2 MG CAP PO ONE (11:30)
--- NOTE | 2016-11-12 13:57 | HHI.NPPN ---
Subjective History of Present Illness 76-year-old female with a past medical history of thyroid cancer, hypothyroidism, Crohn's disease with chronic loose bowel motions who came to the hospital with complaint of generalized weakness and nausea and vomiting. I was called to see the patient because of elevated BUN and creatinine. The patient was found to have BUN of 77 and creatinine of 2.8 on admission. Previously she had creatinine of 0.5 in July of this year. Additional Remarks Patient is complaining of pain in neck , and cannot move her head, looking towards left side, no SOB, or chest pain. Objective Data Data 11/12/16 11/13/16 19:00 07:00 Intake Total 835 ml Balance 835 ml IV Total 835 ml Vital Signs Date Time Temp Pulse Resp B/P (MAP) Pulse Ox O2 Delivery O2 Flow Rate FiO2 11/12/16 12:00 97.7 99 18 112/66 (81) 96 11/12/16 10:29 96 Nasal Cannula 3.00 11/12/16 08:00 98.5 103 19 94/56 (69) 97 11/12/16 00:00 99.0 118 22 124/57 (79) 95 11/11/16 20:00 97.6 114 16 138/58 (84) 93 11/11/16 19:54 98 Nasal Cannula 2.00 11/11/16 16:00 98.2 75 21 123/67 (85) 95 11/11/16 15:40 16 -: 11/11/16 0640 11/12/16 0651 Physical Exam General Appearance: No Acute Distress, Comfortable Eyes Eye Exam: Pupils Equal Throat Throat Exam: Oral Mucosa [place] & Moist Neck Neck Exam: Neck Supple Neck Remarks Restricted movement of neck due to pain. Pulmonary Resp Exam: Breath Sounds Equal, No Distress, Rhonchi, Decreased Bases Cardiology CV Exam: Regular, Normal Sinus Rhythm Gastrointestinal/Abdomen GI Exam: Soft, Non-Tender, Bowel Sounds Present Extremeties Extremities Exam: No Edema Neurologic Neuro Exam: Alert, Awake, Oriented Psychiatric Psych Exam: Appropriate Responses Assessment/Plan Assessment Summary: ТАТЬЯНА/Acute Renal Failure Electrolyte Assessment: Hypokalemia, Metabolic Acidosis Problem List: (1) Dehydration ICD Codes: E86.0 - Dehydration Status: Acute (2) Hypokalemia ICD Codes: E87.6 - Hypokalemia Status: Acute (3) Hyponatremia ICD Codes: E87.1 - Hypo-osmolality and hyponatremia Status: Acute (4) Metabolic acidosis ICD Codes: E87.2 - Acidosis (5) Acute kidney injury ICD Codes: N17.9 - Acute kidney failure, unspecified Status: Acute Plan Patient has been non oliguric Creatinine is better. K is 3.5, and HCo3 is still 17. Has minimal proteinuria, and normal size kidneys. Complements normal. Most likely has Danyelle due to pre renal and/or ATN. Continue gentle Hydration. Started on Imodium, has chronic diarrhea. Will need workup for neck pain. Avoid Nephrotoxins. Agueda Lazaro MD Nov 12, 2016 13:57
[2016-11-12] MEDS ORDERED: Vancomycin Consult Pharmacy 1 EA OTHER SCH (14:00)
[2016-11-12] MEDS ORDERED: AZTREONAM INJ 1,000 MG in SODIUM CHLORIDE 0.9% INJ 100 ML IV SCH (14:00)
[2016-11-12] MEDS ORDERED: VANCOMYCIN INJ 1,000 MG in SODIUM CHLOR 0.9% 250 ML INJ 250 ML IV SCH (14:00)
--- NOTE | 2016-11-12 14:35 | RADRPT ---
EXAM DATE/TIME: 11/12/2016 14:27 [facility] COMPARISON: CHEST SINGLE AP, November 09, 2016, 11:46. INDICATIONS : Fever & shortness of breath. MEDICAL HISTORY : Carcinoma, thyroid. SURGICAL HISTORY : Cholecystectomy. Hysterectomy. ENCOUNTER: Subsequent ACUITY: 4 - 6 days PAIN SCORE: 0/10 LOCATION: chest FINDINGS: The study is abnormal with increasing airspace disease right upper lobe. Interstitial edema is progr essing as well. There is no pneumothorax. The heart remains enlarged. CONCLUSION: Attenuation with increasing congestive failure and and consolidative changes right upper lobe. Goldy Newman MD FACR on November 12, 2016 at 14:32 Board Certified Radiologist. This report was verified electronically.
--- NOTE | 2016-11-12 15:52 | RADRPT ---
EXAM DATE/TIME: 11/12/2016 15:34 [facility] COMPARISON: CT BRAIN W/O CONTRAST, November 09, 2016, 11:57. INDICATIONS : Altered mental status today. RADIATION DOSE: 63.52 CTDIvol (mGy) MEDICAL HISTORY : thyroid cancer SURGICAL HISTORY : Hysterectomy. ENCOUNTER: Initial ACUITY: 1 day PAIN SCALE: 6/10 LOCATION: Bilateral head TECHNIQUE: Multiple contiguous axial images were obtained of the head. Using automated exposure control and adj ustment of the mA and/or kV according to patient size, radiation dose was kept as low as reasonably a chievable to obtain optimal diagnostic quality images. DICOM format image data is available electro nically for review and comparison. FINDINGS: CEREBRUM: The ventricles are normal for age. No evidence of midline shift, mass lesion, hemorrhage or acute in farction. No extra-axial fluid collections are seen. POSTERIOR FOSSA: The cerebellum and brainstem are intact. The 4th ventricle is midline. The cerebellopontine angle i s unremarkable. EXTRACRANIAL: The visualized portion of the orbits is intact. SKULL: The calvaria is intact. No evidence of skull fracture. CONCLUSION: Negative for an acute process. Goldy Newman MD FACR on November 12, 2016 at 15:49 Board Certified Radiologist. This report was verified electronically.
[2016-11-12] MEDS: VANCOMYCIN INJ 1,400 MG in SODIUM CHLORID 0.9% 500 ML INJ 500 ML IV SCH (15:59)
[2016-11-12] MEDS: ACETAMINOPHEN 1000 MG/100 ML VIAL IV PRN (16:54)
[2016-11-12] MEDS ORDERED: AZITHROMYCIN INJ 500 MG in SODIUM CHLOR 0.9% 250 ML INJ 250 ML IV SCH (17:00)
--- NOTE | 2016-11-12 17:09 | PD.CONS ---
History of Present Illness Service Infectious Disease Consult Requested By Dr Serena Chery Reason for Consult Fever Primary Care Physician Get Chacon MD Diagnoses: (1) Pneumonia (2) Acute kidney injury History of Present Illness 76/F patient with known h/o Crohn's with chronic diarrhea- came in because of fevers for 1 & 1/2 weeks with weakness, nausea and vomiting. Came to ER and was found to be in Acute renal failure. Low grade fevers in hospital and now short of breath with c/o some occasional dry cough. Patient was on a 17 day cruise to [place] 6 weeks ago and was sick on the cruise and has not completely recovered when she got back. No past h/o Pneumonia or respiratory problems. Review of Systems Constitutional: COMPLAINS OF: Fatigue, Fever, Change in appetite Endocrine: DENIES: Polydipsia, Polyuria Eyes: DENIES: Blurred vision, Diplopia Ears, nose, mouth, throat: DENIES: Oral lesions, Throat pain Respiratory: COMPLAINS OF: Cough, Shortness of breath, DENIES: Hemoptysis Cardiovascular: DENIES: Chest pain, Palpitations Gastrointestinal: COMPLAINS OF: Diarrhea, Nausea, Vomiting, DENIES: Abdominal pain Genitourinary: DENIES: Urgency, Hematuria, Dysuria Musculoskeletal: DENIES: Joint pain, Muscle aches Integumentary: DENIES: Abnormal pigmentation, Pruritus Hematologic/lymphatic: DENIES: Lymphadenopathy Neurologic: DENIES: Headache Psychiatric: DENIES: Confusion, Agitation Past Family Social History Allergies: Coded Allergies: chloramphenicol (Unverified Allergy, Severe, 11/09/16) codeine (Unverified Allergy, Severe, 11/09/16) erythromycin base (Unverified Allergy, Unknown, 11/09/16) Past Medical History Thyroid cancer Hypothyroidism Crohn's Past Surgical History Thyroidectomy Reported Medications Reviewed in the medical record, nothing new Allergies: Coded Allergies: chloramphenicol (Unverified Allergy, Severe, 11/09/16) codeine (Unverified Allergy, Severe, 11/09/16) erythromycin base (Unverified Allergy, Unknown, 11/09/16) Active Ordered Medications Reviewed in the medical record Family History Father at 91 from heart failure complications, mother at 91 from a stroke Social History No tobacco or alcohol dependency, exercises daily, lives with her spouse Active Ordered Medications Was on Ceftriaxone- now on Vancomycin , Aztreonam and Azithromycin Physical Exam Vital Signs Vital Signs Date Time Temp Pulse Resp B/P (MAP) Pulse Ox O2 Delivery O2 Flow Rate FiO2 11/12/16 12:00 97.7 99 18 112/66 (81) 96 11/12/16 10:29 96 Nasal Cannula 3.00 11/12/16 08:00 98.5 103 19 94/56 (69) 97 11/12/16 00:00 99.0 118 22 124/57 (79) 95 11/11/16 20:00 97.6 114 16 138/58 (84) 93 11/11/16 19:54 98 Nasal Cannula 2.00 Physical Exam GENERAL: This is a chronically ill patient who is tachypneic SKIN: No rashes, ecchymoses or lesions. Cool and dry. HEAD: Atraumatic. Normocephalic. No temporal or scalp tenderness. EYES: Pupils equal round and reactive. Extraocular motions intact. No scleral icterus. No injection or drainage. ENT: Nose without bleeding, purulent drainage or septal hematoma. Throat without erythema, tonsillar hypertrophy or exudate. Uvula midline. Airway patent. NECK: Trachea midline. No JVD or lymphadenopathy. Supple, nontender, no meningeal signs. CARDIOVASCULAR: Regular rate and rhythm without murmurs, gallops, or rubs. RESPIRATORY: Clear to auscultation. Breath sounds decreased bilaterally. No wheezes, or rhonchi. Some rales on right GASTROINTESTINAL: Abdomen soft, non-tender, nondistended. No hepato-splenomegaly , or palpable masses. No guarding. MUSCULOSKELETAL: Extremities without clubbing, cyanosis, or edema. No joint tenderness, effusion, or edema noted. Left calf tenderness. NEUROLOGICAL: Awake and alert. Cranial nerves II through XII intact. Motor and sensory grossly within normal limits. Generalized weakness Laboratory Laboratory Tests Test 11/12/16 06:51 11/12/16 15:10 Blood Urea Nitrogen 56 Creatinine 1.80 Random Glucose 84 Calcium Level 8.6 Phosphorus Level 2.5 Sodium Level 138 Potassium Level 3.5 Chloride Level 109 Carbon Dioxide Level 17.3 Anion Gap 12 Estimat Glomerular Filtration Rate 27 Complement C3 109 Complement C4 25 Date/Time Source Procedure Growth Status 11/10/16 11:20 Blood Peripheral Aerobic Blood Culture - Preliminary NO GROWTH IN 2 DAYS Resulted 11/10/16 11:20 Blood Peripheral Anaerobic Blood Culture - Preliminary NO GROWTH IN 2 DAYS Resulted 11/09/16 12:25 Nasal Washing Influenza Types A,B Antigen (ARNOLDO) - Final NEGATIVE FOR FLU A AND B ANTIGEN.... Complete 11/11/16 00:00 Urine Clean Catch Urine Culture - Preliminary 10-50,000 CFU/ML MIXED KELLI... Resulted Result Diagram: 11/11/16 0640 11/12/16 0651 Assessment and Plan Problem List: (1) Pneumonia ICD Codes: J18.9 - Pneumonia, unspecified organism Plan: Follow blood cultures Check Sputum if cough is productive Will stop Azithromycin Start Levofloxacin 250 mg IV daily for Atypical coverage Continue Aztreonam and Vancomycin for now. Patient with some left calf tenderness and h/o travel so will get Venous Doppler of LEs. (2) Viral syndrome ICD Codes: B34.9 - Viral infection, unspecified Plan: Patient with recent cruise & travel (3) Acute kidney injury ICD Codes: N17.9 - Acute kidney failure, unspecified Status: Acute Plan: Nephrology following patient Problem Qualifiers (1) Pneumonia: Maria R Ulloa MD Nov 12, 2016 17:09
--- NOTE | 2016-11-12 17:56 | RADRPT ---
EXAM DATE/TIME: 11/12/2016 17:27 [facility] COMPARISON: No previous studies available for comparison. INDICATIONS : Bilateral leg pain. MEDICAL HISTORY : Thyroid cancer. Dyspnea. Bilateral leg pain. SURGICAL HISTORY : Cholecystectomy. Hysterectomy. ENCOUNTER: Initial ACUITY: 2 weeks PAIN SCORE: 4/10 LOCATION: Bilateral legs. TECHNIQUE: Venous ultrasound of the left and right leg was performed from the inguinal ligament to the proximal calf. Real-time, color Doppler and spectral tracing, compression and augmentation techniques were us ed. FINDINGS: RIGHT LEG: There is normal compressibility of the deep venous system from the inguinal region to the proximal ca lf. No echogenic clot is seen in the lumen of the common femoral, femoral, popliteal, and posterior tibial veins. There is a normal response of the venous system to proximal and distal augmentation an d respiration. LEFT LEG: There is normal compressibility of the deep venous system from the inguinal region to the proximal ca lf. No echogenic clot is seen in the lumen of the common femoral, femoral, popliteal, and posterior tibial veins. There is a normal response of the venous system to proximal and distal augmentation an d respiration. CONCLUSION: Negative study with no evidence of deep venous thrombosis. Aly Ballard MD on November 12, 2016 at 17:54 Board Certified Radiologist. This report was verified electronically.
[2016-11-12] MEDS: RESP: ALBUTEROL 0.63 MG/3 ML NEB (SCH) NEB ×2 (18:07→21:17)
[2016-11-12] MEDS: LEVOFLOXACIN 250 MG PREMIX INJ 50 ML IV SCH ×2 (21:38→23:05)
[2016-11-12] MEDS: AZTREONAM INJ 1,000 MG in SODIUM CHLORIDE 0.9% INJ 100 ML IV SCH (21:38)
[2016-11-12] MEDS ORDERED: AZTREONAM INJ 2,000 MG in SODIUM CHLORIDE 0.9% INJ 100 ML IV SCH (22:00)
[2016-11-13] VITALS (8 sets, daily range): BP systolic 98–117; BP diastolic 58–69; PULSE 97–106; RESP 20–22; TEMP 95.8–99; O2SAT 94–96
[2016-11-13] MEDS: RESP: ALBUTEROL 0.63 MG/3 ML NEB (SCH) NEB ×4 (03:47→20:49)
[2016-11-13] MEDS: ACETAMINOPHEN 1000 MG/100 ML VIAL IV PRN (04:07)
[2016-11-13 05:43] LABS: POTASSIUM 3.8 MEQ/L (3.5-5.1)
[2016-11-13 05:47] LABS: BICARBONATE 16.4 MEQ/L (21.0-32.0)
[2016-11-13 05:48] LABS: AUTOMATED NEUTROPHIL # 5.5 TH/MM3 (1.8-7.7); BASOPHIL % 0.1 % (0.0-2.0); EOSINOPHIL # 0.1 TH/MM3 (0-0.4); EOSINOPHIL % 1.4 % (0.0-4.0); HEMATOCRIT 31.6 % (35.0-46.0); LYMPH % 5.8 % (9.0-44.0); LYMPHOCYTE # 0.3 TH/MM3 (1.0-4.8); MEAN CELL VOLUME 78.9 FL (80.0-100.0); MEAN CORPUSCULAR HEMOGLOBIN 26.3 PG (27.0-34.0); MEAN CORPUSCULAR HGB CONC 33.3 % (32.0-36.0); MONO % 0.3 % (0.0-8.0); NEUT % 92.4 % (16.0-70.0); PLATELET COUNT 28 TH/MM3 (150-450); WHITE BLOOD COUNT 5.9 TH/MM3 (4.0-11.0)
[2016-11-13] MEDS: LEVOTHYROXINE SODIUM 125 MCG TAB PO SCH (05:49)
[2016-11-13] MEDS: AZTREONAM INJ 1,000 MG in SODIUM CHLORIDE 0.9% INJ 100 ML IV SCH ×3 (05:50→21:24)
[2016-11-13 06:08] LABS: HEMO FLAGS AUTO DIFF
[2016-11-13 06:40] LABS: BANDS 6 % (0-6); POLYS (SEG NEUTROPHILS) 79 % (16-70); SCAN/DIFF FINAL DIFF MANUAL; WBC DIFF SAMPLE 100
[2016-11-13] MEDS: SODIUM CHLORIDE 0.9% FLUSH 10 ML FLUSH IV FLUSH SCH ×2 (09:00→21:00)
[2016-11-13] MEDS: POTASSIUM CHLORIDE 10 MEQ CONTROLLED RELEASE TAB PO SCH ×2 (09:33→21:25)
[2016-11-13] MEDS: PANTOPRAZOLE SOD 20 MG DELAYED RELEASE TAB PO SCH (09:33)
[2016-11-13] MEDS ORDERED: methylPREDNISolone SOD SUCC 125 MG/2 ML VIAL IV PUSH ONE (10:00)
--- NOTE | 2016-11-13 12:18 | HHI.PR ---
Subjective Remarks Patient has no complaints today. Renal function is improved at 6.5. She had dialysis yesterday. Slow improvement in LFTs. Total creatinine kinase is 7193 today. She has a downward trend in her platelet count which remains over 100. Objective Vital Signs Date Time Temp Pulse Resp B/P (MAP) Pulse Ox O2 Delivery O2 Flow Rate FiO2 11/13/16 10:15 96 Nasal Cannula 3.00 11/13/16 08:00 97.2 97 22 98/58 (71) 94 11/13/16 04:00 99.0 11/13/16 04:00 95 Nasal Cannula 3.00 Humidified 11/13/16 00:00 95.8 101 20 112/63 (79) 95 11/13/16 00:00 Nasal Cannula 3.00 Humidified 11/12/16 21:17 96 Nasal Cannula 3.00 11/12/16 20:00 96.2 99 20 93/58 (70) 93 11/12/16 20:00 Nasal Cannula 3.00 Humidified 11/12/16 16:00 100.0 132 17 118/76 (90) 92 I/O 11/12/16 11/12/16 11/12/16 11/13/16 11/13/16 11/13/16 07:00 15:00 23:00 07:00 15:00 23:00 Intake Total 835 ml 614 ml 331 ml Balance 835 ml 614 ml 331 ml IV Total 835 ml 614 ml 331 ml # Voids 2 2 # Bowel Movements 1 2 Result Diagram: 11/13/16 0513 11/13/16 0513 Objective Remarks GENERAL: NAD, A&Ox3 HEAD: Normocephalic. NECK: Supple, trachea midline. No lymphadenopathy. EYES: No scleral icterus. No injection or drainage. CARDIOVASCULAR: Regular rate and rhythm without murmurs, gallops, or rubs. RESPIRATORY: Breath sounds equal bilaterally. No accessory muscle use. GASTROINTESTINAL: Abdomen soft, non-tender, nondistended. MUSCULOSKELETAL: No cyanosis, or edema. SKIN: Warm and dry. NEURO: No focal neurological deficitis. A/P Problem List: (1) Pneumonia ICD Code: J18.9 - Pneumonia, unspecified organism (2) Hypotension ICD Code: I95.9 - Hypotension, unspecified (3) Acute kidney injury ICD Code: N17.9 - Acute kidney failure, unspecified Status: Acute (4) Hyponatremia ICD Code: E87.1 - Hypo-osmolality and hyponatremia Status: Acute (5) Hypokalemia ICD Code: E87.6 - Hypokalemia Status: Acute (6) Dehydration ICD Code: E86.0 - Dehydration Status: Acute Assessment and Plan Assessment and plan 76-year-old female admitted secondary to pneumonia and acute kidney failure related to rhabdomyolysis and possible ATN. Stable for transfer out of ICU today. Acute kidney failure Possible ATN Rhabdomyolysis Continue IV hydration Continue to monitor renal failure Continue dialysis as needed Nephrology following Avoid nephrotoxins Unremarkable ultrasound Pneumonia Continue cefepime Pulmonology following Metabolic acidosis Continue IV hydration with bicarbonate BMP in the morning Hyponatremia Resolved Continue to monitor sodium levels Hypotension May have been contributory Resolved now Follow for any recurrence DVT prophylaxis SCDs Heparin Problem Qualifiers (1) Pneumonia: Gallito Reed MD Nov 13, 2016 12:18
--- NOTE | 2016-11-13 12:24 | HHI.PR ---
Subjective Remarks Patient continues to feel fatigued. She has not yet to baseline. Correlated onset of Crohn's disease flareup in addition to possible ATN and evidence of pneumonitis suggests possible autoimmunity as an explanation for all of her findings coming together. To her knowledge she does not have a prior history of respiratory or kidney issues with her Crohn's disease flareups in the past. Objective Vital Signs Date Time Temp Pulse Resp B/P (MAP) Pulse Ox O2 Delivery O2 Flow Rate FiO2 11/13/16 10:15 96 Nasal Cannula 3.00 11/13/16 08:00 97.2 97 22 98/58 (71) 94 11/13/16 04:00 99.0 11/13/16 04:00 95 Nasal Cannula 3.00 Humidified 11/13/16 00:00 95.8 101 20 112/63 (79) 95 11/13/16 00:00 Nasal Cannula 3.00 Humidified 11/12/16 21:17 96 Nasal Cannula 3.00 11/12/16 20:00 96.2 99 20 93/58 (70) 93 11/12/16 20:00 Nasal Cannula 3.00 Humidified 11/12/16 16:00 100.0 132 17 118/76 (90) 92 I/O 11/12/16 11/12/16 11/12/16 11/13/16 11/13/16 11/13/16 07:00 15:00 23:00 07:00 15:00 23:00 Intake Total 835 ml 614 ml 331 ml Balance 835 ml 614 ml 331 ml IV Total 835 ml 614 ml 331 ml # Voids 2 2 # Bowel Movements 1 2 Result Diagram: 11/13/1651211/13/16 0513 Objective Remarks GENERAL: NAD, A&Ox3 HEAD: Normocephalic. NECK: Supple, trachea midline. No lymphadenopathy. EYES: No scleral icterus. No injection or drainage. CARDIOVASCULAR: Regular rate and rhythm without murmurs, gallops, or rubs. RESPIRATORY: Breath sounds equal bilaterally. No accessory muscle use. GASTROINTESTINAL: Abdomen soft, non-tender, nondistended. MUSCULOSKELETAL: No cyanosis, or edema. SKIN: Warm and dry. NEURO: No focal neurological deficitis. A/P Problem List: (1) Pneumonia ICD Code: J18.9 - Pneumonia, unspecified organism (2) Hypotension ICD Code: I95.9 - Hypotension, unspecified (3) Acute kidney injury ICD Code: N17.9 - Acute kidney failure, unspecified Status: Acute (4) Hyponatremia ICD Code: E87.1 - Hypo-osmolality and hyponatremia Status: Acute (5) Hypokalemia ICD Code: E87.6 - Hypokalemia Status: Acute (6) Dehydration ICD Code: E86.0 - Dehydration Status: Acute Assessment and Plan Assessment and plan 76-year-old female admitted with acute kidney injury and dehydration and Crohn' s disease flareup with diarrhea and abdominal pain. Exacerbation of Crohn's disease Diarrhea Follow clinically Steroids started (Solu-Medrol) Follow for improvement Issues of her lung and kidney could also be related to autoimmunity Acute kidney failure Possible ATN Improving Continue to monitor renal function Nephrology following Pneumonia Continue aztreonam and vancomycin for now No white blood cell count Patient response to steroids, may consider stopping antibiotics Metabolic acidosis Continue IV hydration with bicarbonate BMP in the morning Hyponatremia Resolved Continue to monitor sodium levels Hypotension May have also been contributory Resolved now Follow for any recurrence DVT prophylaxis SCDs Heparin Problem Qualifiers (1) Pneumonia: Gallito Reed MD Nov 13, 2016 12:24
[2016-11-13] MEDS: SODIUM BICARBONATE 8.4% INJ 75 MEQ in SODIUM CHLOR 0.45% 1000 ML INJ 1,000 ML IV SCH (17:16)
[2016-11-13] MEDS: ACETAMINOPHEN 325 MG TAB PO PRN (17:23)
--- NOTE | 2016-11-13 20:18 | HHI.NPPN ---
Subjective History of Present Illness 76-year-old female with a past medical history of thyroid cancer, hypothyroidism, Crohn's disease with chronic loose bowel motions who came to the hospital with complaint of generalized weakness and nausea and vomiting. I was called to see the patient because of elevated BUN and creatinine. The patient was found to have BUN of 77 and creatinine of 2.8 on admission. Previously she had creatinine of 0.5 in July of this year. Additional Remarks Patient is alert, no SOB, neck pain is slightly better. Objective Data Data 11/13/16 11/14/16 19:00 07:00 Intake Total 1654 ml Balance 1654 ml Intake Oral 1050 ml IV Total 604 ml # Voids 3 # Bowel Movements 1 Vital Signs Date Time Temp Pulse Resp B/P (MAP) Pulse Ox O2 Delivery O2 Flow Rate FiO2 11/13/16 18:23 18 11/13/16 16:00 98.7 102 20 117/63 (81) 95 11/13/16 12:00 97.8 106 20 99/58 (72) 94 11/13/16 10:15 96 Nasal Cannula 3.00 11/13/16 08:00 97.2 97 22 98/58 (71) 94 11/13/16 08:00 Nasal Cannula 3.00 Humidified 11/13/16 04:00 99.0 11/13/16 04:00 95 Nasal Cannula 3.00 Humidified 11/13/16 00:00 95.8 101 20 112/63 (79) 95 11/13/16 00:00 Nasal Cannula 3.00 Humidified 11/12/16 21:17 96 Nasal Cannula 3.00 -: 11/13/16 0513 11/13/16 0513 Microbiology 11/13/16 Stool Pus (ARNOLDO) - Final, Complete NO WBC'S SEEN Physical Exam General Appearance: No Acute Distress, Comfortable Eyes Eye Exam: Pupils Equal Throat Throat Exam: Oral Mucosa [place] & Moist Neck Neck Exam: Neck Supple Neck Remarks Restricted movement of neck due to pain. Pulmonary Resp Exam: Breath Sounds Equal, No Distress, Rhonchi, Decreased Bases Cardiology CV Exam: Regular, Normal Sinus Rhythm Gastrointestinal/Abdomen GI Exam: Soft, Non-Tender, Bowel Sounds Present Extremeties Extremities Exam: No Edema Neurologic Neuro Exam: Alert, Awake, Oriented Psychiatric Psych Exam: Appropriate Responses Assessment/Plan Assessment Summary: ТАТЬЯНА/Acute Renal Failure Electrolyte Assessment: Hypokalemia, Metabolic Acidosis Problem List: (1) Dehydration ICD Codes: E86.0 - Dehydration Status: Acute (2) Hypokalemia ICD Codes: E87.6 - Hypokalemia Status: Acute (3) Hyponatremia ICD Codes: E87.1 - Hypo-osmolality and hyponatremia Status: Acute (4) Metabolic acidosis ICD Codes: E87.2 - Acidosis (5) Acute kidney injury ICD Codes: N17.9 - Acute kidney failure, unspecified Status: Acute Plan Patient has been non oliguric Creatinine is better. K is 3.8, better, and HCo3 is still low. Has minimal proteinuria, and normal size kidneys. Complements normal. Most likely has ТАТЬЯНА due to pre renal and/or ATN. Continue gentle Hydration. Started on Imodium, has chronic diarrhea. Will need workup for neck pain. Avoid Nephrotoxins. Creatinine is better, continue IVF. Agueda Lazaro MD Nov 13, 2016 20:18
[2016-11-13] MEDS ORDERED: methylPREDNISolone SOD SUCC 40 MG/1 ML VIAL IV PUSH SCH (21:00)
[2016-11-13] MEDS: methylPREDNISolone SOD SUCC 40 MG/1 ML VIAL IV PUSH SCH (21:21)
[2016-11-13] MEDS: LEVOFLOXACIN 250 MG PREMIX INJ 50 ML IV SCH (22:31)
[2016-11-14] VITALS (8 sets, daily range): BP systolic 100–122; BP diastolic 58–76; PULSE 76–101; RESP 18–20; TEMP 96–97.2; O2SAT 92–96
[2016-11-14] MEDS: VANCOMYCIN INJ 1,400 MG in SODIUM CHLORID 0.9% 500 ML INJ 500 ML IV SCH (03:58)
[2016-11-14] MEDS: RESP: ALBUTEROL 0.63 MG/3 ML NEB (SCH) NEB ×4 (04:05→21:19)
[2016-11-14 06:07] LABS: HEMATOCRIT 30.5 % (35.0-46.0); MEAN CELL VOLUME 79.6 FL (80.0-100.0); MEAN CORPUSCULAR HEMOGLOBIN 26.3 PG (27.0-34.0); RED BLOOD COUNT 3.82 MIL/MM3 (4.00-5.30); RED CELL DISTRIBUTION WIDTH 19.7 % (11.6-17.2)
[2016-11-14 06:29] LABS: BICARBONATE 19.3 MEQ/L (21.0-32.0)
[2016-11-14 07:18] LABS: PLATELET COUNT 140 TH/MM3 (150-450); REVIEW FLAG FINAL
[2016-11-14] MEDS: LEVOTHYROXINE SODIUM 25 MCG TAB PO SCH (07:42)
[2016-11-14] MEDS: LEVOTHYROXINE SODIUM 112 MCG TAB PO SCH (07:42)
[2016-11-14] MEDS: AZTREONAM INJ 1,000 MG in SODIUM CHLORIDE 0.9% INJ 100 ML IV SCH ×3 (07:43→20:55)
[2016-11-14] MEDS: SODIUM CHLORIDE 0.9% FLUSH 10 ML FLUSH IV FLUSH SCH ×2 (08:06→20:49)
[2016-11-14] MEDS ORDERED: FUROSEMIDE 20 MG/2 ML VIAL IV PUSH ONE ×2 (09:00→13:00)
[2016-11-14] MEDS: PANTOPRAZOLE SOD 20 MG DELAYED RELEASE TAB PO SCH (09:31)
[2016-11-14] MEDS: methylPREDNISolone SOD SUCC 40 MG/1 ML VIAL IV PUSH SCH ×2 (09:31→20:49)
[2016-11-14] MEDS: POTASSIUM CHLORIDE 10 MEQ CONTROLLED RELEASE TAB PO SCH ×2 (09:31→20:49)
[2016-11-14] MEDS: SODIUM BICARBONATE 8.4% INJ 75 MEQ in SODIUM CHLOR 0.45% 1000 ML INJ 1,000 ML IV SCH (10:00)
--- NOTE | 2016-11-14 10:42 | HHI.PR ---
Subjective Remarks Patient is feeling slightly better today compared to previous days. She continues to be oxygen dependent. Chest x-ray from yesterday shows increased edema compared to previous x-ray. Renal function has improved with a creatinine transitioning from 1.6-1.4. GI symptoms remain. Objective Vital Signs Date Time Temp Pulse Resp B/P (MAP) Pulse Ox O2 Delivery O2 Flow Rate FiO2 11/14/16 09:45 95 Nasal Cannula 3.00 11/14/16 08:00 97.2 90 20 122/72 (89) 94 11/14/16 07:15 Nasal Cannula 3.00 11/14/16 04:00 96.0 89 20 115/76 (89) 92 11/14/16 00:00 96.0 76 20 116/68 (84) 96 11/13/16 20:50 96 Nasal Cannula 3.00 11/13/16 20:00 Nasal Cannula 3.00 11/13/16 20:00 96.0 98 20 107/69 (82) 95 11/13/16 18:23 18 11/13/16 16:00 98.7 102 20 117/63 (81) 95 11/13/16 12:00 97.8 106 20 99/58 (72) 94 I/O 11/13/16 11/13/16 11/13/16 11/14/16 11/14/16 11/14/16 07:00 15:00 23:00 07:00 15:00 23:00 Intake Total 331 ml 950 ml 864 ml 614 ml Output Total 400 ml 250 ml Balance 331 ml 950 ml 464 ml 364 ml Intake Oral 850 ml 260 ml 60 ml IV Total 331 ml 100 ml 604 ml 554 ml Output Urine Total 400 ml 250 ml # Voids 2 3 1 1 # Bowel Movements 2 1 1 1 Result Diagram: 11/14/16 0530 11/14/16 0530 Objective Remarks GENERAL: NAD, A&Ox3 HEAD: Normocephalic. NECK: Supple, trachea midline. No lymphadenopathy. EYES: No scleral icterus. No injection or drainage. CARDIOVASCULAR: Regular rate and rhythm without murmurs, gallops, or rubs. RESPIRATORY: Breath sounds equal bilaterally. No accessory muscle use. GASTROINTESTINAL: Abdomen soft, non-tender, nondistended. MUSCULOSKELETAL: No cyanosis, or edema. SKIN: Warm and dry. NEURO: No focal neurological deficitis. A/P Problem List: (1) Pneumonia ICD Code: J18.9 - Pneumonia, unspecified organism (2) Hypotension ICD Code: I95.9 - Hypotension, unspecified (3) Acute kidney injury ICD Code: N17.9 - Acute kidney failure, unspecified Status: Acute (4) Hyponatremia ICD Code: E87.1 - Hypo-osmolality and hyponatremia Status: Acute (5) Hypokalemia ICD Code: E87.6 - Hypokalemia Status: Acute (6) Dehydration ICD Code: E86.0 - Dehydration Status: Acute Assessment and Plan Assessment and plan 76-year-old female admitted with acute kidney injury and dehydration and Crohn' s disease flareup with diarrhea and abdominal pain. Continue to monitor renal function. Continue oxygen supplementation. Lasix 20 mg IV will be provided twice today to treat her pulmonary edema. Echocardiogram is being performed 20 patient seen. Follow up echocardiogram results. Continue to monitor renal function. Continue oxygen supplementation and wean as tolerated. Exacerbation of Crohn's disease Diarrhea Follow clinically Steroids started (Solu-Medrol) Follow for improvement Issues of her lung and kidney could also be related to autoimmunity Acute kidney failure Possible ATN Improving Continue to monitor renal function Nephrology following Pneumonia Continue aztreonam and vancomycin for now No white blood cell count If patient responds to steroids, may consider stopping antibiotics Metabolic acidosis Continue IV hydration with bicarbonate BMP in the morning Hyponatremia Resolved Continue to monitor sodium levels Hypotension May have also been contributory Resolved now Follow for any recurrence DVT prophylaxis SCDs Heparin Problem Qualifiers (1) Pneumonia: Gallito Reed MD Nov 14, 2016 10:42
--- NOTE | 2016-11-14 11:28 | HHI.NPPN ---
Subjective History of Present Illness 76-year-old female with a past medical history of thyroid cancer, hypothyroidism, Crohn's disease with chronic loose bowel motions who came to the hospital with complaint of generalized weakness and nausea and vomiting. I was called to see the patient because of elevated BUN and creatinine. The patient was found to have BUN of 77 and creatinine of 2.8 on admission. Previously she had creatinine of 0.5 in July of this year. Additional Remarks Patient is alert, no SOB, neck pain is better and movement of neck improved. Objective Data Data 11/14/16 11/15/16 18:59 06:59 Intake Total 614 ml Balance 614 ml IV Total 614 ml Vital Signs Date Time Temp Pulse Resp B/P (MAP) Pulse Ox O2 Delivery O2 Flow Rate FiO2 11/14/16 09:45 95 Nasal Cannula 3.00 11/14/16 08:00 97.2 90 20 122/72 (89) 94 11/14/16 07:15 Nasal Cannula 3.00 11/14/16 04:00 96.0 89 20 115/76 (89) 92 11/14/16 00:00 96.0 76 20 116/68 (84) 96 11/13/16 20:50 96 Nasal Cannula 3.00 11/13/16 20:00 Nasal Cannula 3.00 11/13/16 20:00 96.0 98 20 107/69 (82) 95 11/13/16 18:23 18 11/13/16 16:00 98.7 102 20 117/63 (81) 95 11/13/16 12:00 97.8 106 20 99/58 (72) 94 -: 11/14/16 0530 11/14/16 0530 Physical Exam General Appearance: No Acute Distress, Comfortable Eyes Eye Exam: Pupils Equal Throat Throat Exam: Oral Mucosa [place] Neck & Moist Neck Neck Exam: Neck Supple Neck Remarks Restricted movement of neck due to pain. Pulmonary Resp Exam: Breath Sounds Equal, No Distress, Rhonchi, Decreased Bases Cardiology CV Exam: Regular, Normal Sinus Rhythm Gastrointestinal/Abdomen GI Exam: Soft, Non-Tender, Bowel Sounds Present Extremeties Extremities Exam: No Edema Neurologic Neuro Exam: Alert, Awake, Oriented Psychiatric Psych Exam: Appropriate Responses Assessment/Plan Assessment Summary: ТАТЬЯНА/Acute Renal Failure Electrolyte Assessment: Hypokalemia, Metabolic Acidosis Problem List: (1) Dehydration ICD Codes: E86.0 - Dehydration Status: Acute (2) Hypokalemia ICD Codes: E87.6 - Hypokalemia Status: Acute (3) Hyponatremia ICD Codes: E87.1 - Hypo-osmolality and hyponatremia Status: Acute (4) Metabolic acidosis ICD Codes: E87.2 - Acidosis (5) Acute kidney injury ICD Codes: N17.9 - Acute kidney failure, unspecified Status: Acute Plan Patient has been non oliguric Creatinine is better. K is normal, and HCo3 is improving. Has minimal proteinuria, and normal size kidneys. Complements normal. Most likely has ТАТЬЯНА due to pre renal and/or ATN. Continue gentle Hydration. Started on Imodium, has chronic diarrhea. Will need workup for neck pain. Avoid Nephrotoxins. Creatinine continue to improve. Got one dose of Lasix. Agueda Lazaro MD Nov 14, 2016 11:28
--- NOTE | 2016-11-14 15:49 | ECHRPT ---
Indication: sepsis/endocarditis CONCLUSIONS The left ventricular systolic function is normal with an estimated ejection fraction in the range of 55-60%. Wall thickness is measured at the upper limits of normal. Normal left ventricular size. There is mild tricuspid valve regurgitation. The estimated pulmonary arterial pressure is 34 mmHg. The pulmonary valve is not well visualized. BP: / HR: 83 Rhythm: Sinus MEASUREMENTS (Male / Female) Normal Values Technical Quality:Good 2D ECHO LV Diastolic Diameter PLAX 4.9 cm 4.2 - 5.9 / 3.9 - 5.3 cm LV Systolic Diameter PLAX 3.4 cm IVS Diastolic Thickness 1.2 cm 0.6 - 1.0 / 0.6 - 0.9 cm LVPW Diastolic Thickness 1.2 cm 0.6 - 1.0 / 0.6 - 0.9 cm LV Relative Wall Thickness 0.5 LVOT Diameter 2.1 cm M-MODE Aortic Root Diameter MM 3.0 cm LA Systolic Diameter MM 3.8 cm LA Ao Ratio MM 1.3 AV Cusp Separation MM 2.2 cm DOPPLER AV Peak Velocity 122.0 cm/s AV Peak Gradient 6.0 mmHg LVOT Peak Velocity 81.9 cm/s LVOT Peak Gradient 2.7 mmHg AV Area Cont Eq pk 2.3 cm TR Peak Velocity 247.0 cm/s TR Peak Gradient 24.4 mmHg PV Peak Velocity 80.1 cm/s PV Peak Gradient 2.6 mmHg FINDINGS LEFT VENTRICLE The left ventricular systolic function is normal with an estimated ejection fraction in the range of 55-60%. Wall thickness is measured at the upper limits of normal. Normal left ventricular size. RIGHT VENTRICLE Normal right ventricular size and systolic function. LEFT ATRIUM The left atrial size is normal. RIGHT ATRIUM The right atrial size is normal. ATRIAL SEPTUM Normal atrial septal thickness without atrial level shunting by limited color doppler interrogation. AORTA The aortic root and proximal ascending aorta are normal in size on limited imaging. MITRAL VALVE Structurally normal mitral valve. No mitral valve stenosis or regurgitation. AORTIC VALVE Trileaflet aortic valve. No aortic valve stenosis or regurgitation. TRICUSPID VALVE There is mild tricuspid valve regurgitation. The estimated pulmonary arterial pressure is 34 mmHg. PULMONARY VALVE The pulmonary valve is not well visualized. VESSELS The inferior vena cava is normal in size. PERICARDIUM No pericardial effusion. Jorge Downing MD (Electronically Signed) Final Date:14 November 2016 15:48
[2016-11-14] MEDS: ACETAMINOPHEN 325 MG TAB PO PRN (18:37)
[2016-11-14] MEDS: LEVOFLOXACIN 250 MG PREMIX INJ 50 ML IV SCH (20:55)
[2016-11-15] VITALS (7 sets, daily range): BP systolic 102–128; BP diastolic 59–74; PULSE 81–98; RESP 16–20; TEMP 96–98.4; O2SAT 90–95
[2016-11-15] MEDS: RESP: ALBUTEROL 0.63 MG/3 ML NEB (SCH) NEB ×4 (02:56→21:08)
[2016-11-15] MEDS: diphenhydrAMINE HCL 25 MG CAP PO PRN (04:43)
[2016-11-15] MEDS: LEVOTHYROXINE SODIUM 125 MCG TAB PO SCH (04:43)
[2016-11-15] MEDS: AZTREONAM INJ 1,000 MG in SODIUM CHLORIDE 0.9% INJ 100 ML IV SCH (04:44)
[2016-11-15 06:13] LABS: POTASSIUM 3.8 MEQ/L (3.5-5.1)
[2016-11-15 06:20] LABS: BICARBONATE 20.2 MEQ/L (21.0-32.0)
[2016-11-15] MEDS ORDERED: VANCOMYCIN INJ 1,150 MG in SODIUM CHLOR 0.9% 250 ML INJ 250 ML IV SCH (08:00)
[2016-11-15] MEDS: SODIUM CHLORIDE 0.9% FLUSH 10 ML FLUSH IV FLUSH SCH ×2 (08:32→20:07)
[2016-11-15] MEDS: methylPREDNISolone SOD SUCC 40 MG/1 ML VIAL IV PUSH SCH ×2 (08:32→20:07)
[2016-11-15] MEDS: PANTOPRAZOLE SOD 20 MG DELAYED RELEASE TAB PO SCH (08:32)
[2016-11-15] MEDS: POTASSIUM CHLORIDE 10 MEQ CONTROLLED RELEASE TAB PO SCH ×2 (08:38→20:07)
[2016-11-15 10:03] LABS: HEMATOCRIT 28.7 % (35.0-46.0); MEAN CELL VOLUME 77.8 FL (80.0-100.0); MEAN CORPUSCULAR HEMOGLOBIN 25.7 PG (27.0-34.0); MEAN CORPUSCULAR HGB CONC 33.1 % (32.0-36.0); PLATELET COUNT 47 TH/MM3 (150-450); RED BLOOD COUNT 3.69 MIL/MM3 (4.00-5.30); RED CELL DISTRIBUTION WIDTH 19.3 % (11.6-17.2); WHITE BLOOD COUNT 10.3 TH/MM3 (4.0-11.0)
[2016-11-15 10:14] LABS: REVIEW FLAG FINAL
--- NOTE | 2016-11-15 11:33 | HHI.PR ---
Subjective Remarks Patient is feeling better. Weaned off oxygen now. Echocardiogram showed an ejection fraction of 55-60% which decreases the risk that her pulmonary edema was secondary to a cardiac etiology. Of concern she does have a drop again her platelets to 47 from 140 on the previous day. Heparin has been on hold. Aztreonam may be causing thrombocytopenia. Patient is starting to ambulate better with PT. Objective Vital Signs Date Time Temp Pulse Resp B/P (MAP) Pulse Ox O2 Delivery O2 Flow Rate FiO2 11/15/16 09:49 95 Nasal Cannula 2.00 11/15/16 08:55 97.4 81 16 128/69 (88) 92 11/15/16 00:00 96.0 91 20 119/74 (89) 95 11/14/16 21:19 95 Nasal Cannula 2.00 11/14/16 20:00 96.4 101 20 100/58 (72) 95 11/14/16 19:00 95 Nasal Cannula 2.00 11/14/16 16:00 96.8 101 18 110/75 (87) 94 11/14/16 12:00 96.9 96 20 122/60 (80) 94 I/O 11/14/16 11/14/16 11/14/16 11/15/16 11/15/16 11/15/16 07:00 15:00 23:00 07:00 15:00 23:00 Intake Total 614 ml 1439 ml 356 ml 240 ml Output Total 250 ml 925 ml 400 ml Balance 364 ml 514 ml 356 ml -160 ml Intake Oral 60 ml 725 ml 240 ml IV Total 554 ml 714 ml 356 ml Output Urine Total 250 ml 925 ml 400 ml # Voids 1 2 # Bowel Movements 1 1 0 Result Diagram: 11/15/1651411/15/16514 Objective Remarks GENERAL: NAD, A&Ox3 HEAD: Normocephalic. NECK: Supple, trachea midline. No lymphadenopathy. EYES: No scleral icterus. No injection or drainage. CARDIOVASCULAR: Regular rate and rhythm without murmurs, gallops, or rubs. RESPIRATORY: Breath sounds equal bilaterally. No accessory muscle use. GASTROINTESTINAL: Abdomen soft, non-tender, nondistended. MUSCULOSKELETAL: No cyanosis, or edema. SKIN: Warm and dry. NEURO: No focal neurological deficitis. A/P Problem List: (1) Pneumonia ICD Code: J18.9 - Pneumonia, unspecified organism (2) Hypotension ICD Code: I95.9 - Hypotension, unspecified (3) Acute kidney injury ICD Code: N17.9 - Acute kidney failure, unspecified Status: Acute (4) Hyponatremia ICD Code: E87.1 - Hypo-osmolality and hyponatremia Status: Acute (5) Hypokalemia ICD Code: E87.6 - Hypokalemia Status: Acute (6) Dehydration ICD Code: E86.0 - Dehydration Status: Acute Assessment and Plan Assessment and plan 76-year-old female admitted with acute kidney injury and dehydration and Crohn' s disease flareup with diarrhea and abdominal pain. Renal function continues to improve. Continue to monitor renal function. Labs ordered. Oxygen supplementation no longer needed. Stop IV hydration. Stop antibiotics. In the longer convinced that pneumonia is etiology. She has clearance of her respiratory issues with diuresis. Crohn's disease symptoms are still present but patient having approximate 2 episodes of loose bowel movements per day. Echocardiogram does not demonstrate CHF. Follow platelets, CBC, and BMP. The stable through tomorrow will consider discharge. Exacerbation of Crohn's disease Diarrhea Follow clinically Steroids started (Solu-Medrol) Follow for improvement Issues of her lung and kidney could also be related to autoimmunity Acute kidney failure Possible ATN Improving Continue to monitor renal function Nephrology following Pneumonia Continue aztreonam and vancomycin for now No white blood cell count If patient responds to steroids, may consider stopping antibiotics Metabolic acidosis Continue IV hydration with bicarbonate BMP in the morning Hyponatremia Resolved Continue to monitor sodium levels Hypotension May have also been contributory Resolved now Follow for any recurrence DVT prophylaxis SCDs Heparin Problem Qualifiers (1) Pneumonia: Gallito Reed MD Nov 15, 2016 11:33
[2016-11-15] MEDS: ACETAMINOPHEN 325 MG TAB PO PRN ×2 (11:52→17:35)
--- NOTE | 2016-11-15 12:27 | HHI.NPPN ---
Subjective History of Present Illness 76-year-old female with a past medical history of thyroid cancer, hypothyroidism, Crohn's disease with chronic loose bowel motions who came to the hospital with complaint of generalized weakness and nausea and vomiting. I was called to see the patient because of elevated BUN and creatinine. The patient was found to have BUN of 77 and creatinine of 2.8 on admission. Previously she had creatinine of 0.5 in July of this year. Additional Remarks Patient is alert, no SOB, neck pain is better , still not eating well. Objective Data Data Vital Signs Date Time Temp Pulse Resp B/P (MAP) Pulse Ox O2 Delivery O2 Flow Rate FiO2 11/15/16 09:49 95 Nasal Cannula 2.00 11/15/16 08:55 97.4 81 16 128/69 (88) 92 11/15/16 00:00 96.0 91 20 119/74 (89) 95 11/14/16 21:19 95 Nasal Cannula 2.00 11/14/16 20:00 96.4 101 20 100/58 (72) 95 11/14/16 19:00 95 Nasal Cannula 2.00 11/14/16 16:00 96.8 101 18 110/75 (87) 94 -: 11/15/16 0515 11/15/16 0515 Physical Exam General Appearance: No Acute Distress, Comfortable Eyes Eye Exam: Pupils Equal Throat Throat Exam: Oral Mucosa [place] & Moist Neck Neck Exam: Neck Supple Neck Remarks Restricted movement of neck due to pain. Pulmonary Resp Exam: Breath Sounds Equal, No Distress, Rhonchi, Decreased Bases Cardiology CV Exam: Regular, Normal Sinus Rhythm Gastrointestinal/Abdomen GI Exam: Soft, Non-Tender, Bowel Sounds Present Extremeties Extremities Exam: No Edema Neurologic Neuro Exam: Alert, Awake, Oriented Psychiatric Psych Exam: Appropriate Responses Assessment/Plan Assessment Summary: ТАТЬЯНА/Acute Renal Failure Electrolyte Assessment: Hypokalemia, Metabolic Acidosis Problem List: (1) Dehydration ICD Codes: E86.0 - Dehydration Status: Acute (2) Hypokalemia ICD Codes: E87.6 - Hypokalemia Status: Acute (3) Hyponatremia ICD Codes: E87.1 - Hypo-osmolality and hyponatremia Status: Acute (4) Metabolic acidosis ICD Codes: E87.2 - Acidosis (5) Acute kidney injury ICD Codes: N17.9 - Acute kidney failure, unspecified Status: Acute Plan Patient has been non oliguric Creatinine is better. K is normal, and HCo3 is improving. Has minimal proteinuria, and normal size kidneys. Complements normal. Most likely has ТАТЬЯНА due to pre renal and/or ATN. Continue gentle Hydration. Started on Imodium, has chronic diarrhea. Urine out put is good. Creatinine continue to improve. Agueda Lazaro MD Nov 15, 2016 12:27
[2016-11-15 13:51] LABS: MYELOPEROXIDASE LESS THAN 1.0 AI (<1.0); PROTEINASE-3 LESS THAN 1.0 AI (<1.0)
--- NOTE | 2016-11-15 14:06 | HHI.IDPN ---
Subjective Subjective Remarks chart reviewed 76 female with Chron's disaes came with variety of complaints including feve, dry cough, diarrhea She presente d in ARF CXR with interstitial infilatrates. SHe was on abx 3-4 days blood clx, urine clx negative Her creatinine improved Plts iproved yday, but dropped again today She is afebrile pt co weakness, malaise Antibiotics NONE Allergies: Coded Allergies: chloramphenicol (Unverified Allergy, Severe, 11/09/16) codeine (Unverified Allergy, Severe, 11/09/16) erythromycin base (Unverified Allergy, Unknown, 11/09/16) Objective . Vital Signs Date Time Temp Pulse Resp B/P (MAP) Pulse Ox O2 Delivery O2 Flow Rate FiO2 11/15/16 12:44 98.4 95 16 107/68 (81) 92 11/15/16 09:49 95 Nasal Cannula 2.00 11/15/16 08:55 97.4 81 16 128/69 (88) 92 11/15/16 00:00 96.0 91 20 119/74 (89) 95 11/14/16 21:19 95 Nasal Cannula 2.00 11/14/16 20:00 96.4 101 20 100/58 (72) 95 11/14/16 19:00 95 Nasal Cannula 2.00 11/14/16 16:00 96.8 101 18 110/75 (87) 94 . Laboratory Tests Test 11/14/16 05:30 11/15/16 05:15 White Blood Count 8.0 TH/MM3 10.3 TH/MM3 Red Blood Count 3.82 MIL/MM3 3.69 MIL/MM3 Hemoglobin 10.0 GM/DL 9.5 GM/DL Hematocrit 30.5 % 28.7 % Mean Corpuscular Volume 79.6 FL 77.8 FL Mean Corpuscular Hemoglobin 26.3 PG 25.7 PG Mean Corpuscular Hemoglobin Concent 33.0 % 33.1 % Red Cell Distribution Width 19.7 % 19.3 % Platelet Count 140 TH/MM3 47 TH/MM3 Mean Platelet Volume 11.9 FL 11.5 FL Laboratory Tests Test 11/14/16 05:30 11/15/16 05:15 Blood Urea Nitrogen 47 MG/DL 52 MG/DL Creatinine 1.40 MG/DL 1.20 MG/DL Random Glucose 132 MG/DL 130 MG/DL Calcium Level 8.9 MG/DL 8.4 MG/DL Sodium Level 141 MEQ/L 142 MEQ/L Potassium Level 4.0 MEQ/L 3.8 MEQ/L Chloride Level 111 MEQ/L 111 MEQ/L Carbon Dioxide Level 19.3 MEQ/L 20.2 MEQ/L Anion Gap 11 MEQ/L 11 MEQ/L Estimat Glomerular Filtration Rate 36 ML/MIN 43 ML/MIN Microbiology Date/Time Source Procedure Growth Status 11/13/16 01:45 Stool Stool Stool Pus (ARNOLDO) - Final NO WBC'S SEEN Complete Imaging Last Impressions Lower Extremity Ultrasound 11/12/16 0000 Signed Impressions: Service Date/Time: Saturday, November 12, 2016 17:27 - CONCLUSION: Negative study with no evidence of deep venous thrombosis. Aly Ballard MD Head CT 11/12/16 0000 Signed Impressions: Service Date/Time: Saturday, November 12, 2016 15:34 - CONCLUSION: Negative for an acute process. Goldy Newman MD FACR Chest X-Ray 11/12/16 0000 Signed Impressions: Service Date/Time: Saturday, November 12, 2016 14:27 - CONCLUSION: Attenuation with increasing congestive failure and and consolidative changes right upper lobe. Goldy Newman MD FACR Renal Ultrasound 11/11/16 0000 Signed Impressions: Service Date/Time: Friday, November 11, 2016 15:54 - CONCLUSION: Unremarkable renal ultrasound. There is no hydronephrosis. Goldy Newman MD FACR Abdomen/Pelvis CT 11/10/16 0000 Signed Impressions: Service Date/Time: Thursday, November 10, 2016 11:41 - CONCLUSION: I don't see an abscess or free fluid to suggest an exacerbation of Crohn's disease. There is no asymmetrical bowel dilatation. Goldy Newman MD FACR Physical Exam GENERAL: This is a chronically ill patient who is tachypneic SKIN: No rashes, ecchymoses or lesions. Cool and dry. HEAD: Atraumatic. Normocephalic. No temporal or scalp tenderness. EYES: Pupils equal round and reactive. Extraocular motions intact. No scleral icterus. No injection or drainage. ENT: Nose without bleeding, purulent drainage or septal hematoma. oral mucosae moist NECK: Trachea midline. No JVD or lymphadenopathy. Supple, nontender, no meningeal signs. CARDIOVASCULAR: Regular rate and rhythm without murmurs, gallops, or rubs. RESPIRATORY: Clear to auscultation. Breath sounds decreased bilaterally. No wheezes, or rhonchi. Some rales on right GASTROINTESTINAL: Abdomen soft, non-tender, nondistended. No hepato-splenomegaly , or palpable masses. No guarding. MUSCULOSKELETAL: Extremities without clubbing, cyanosis, or edema. No joint tenderness, effusion, or edema noted. Left calf tenderness. NEUROLOGICAL: Awake and alert. Cranial nerves II through XII intact. Motor and sensory grossly within normal limits. Generalized weakness Assessment & Plan Remarks ? Pneumonia (viral) vs fluid overload cont levaquine for now fu CXR, if CXR negasraine smith fluid overload in this case will dc levaquine Acute kidney injury - improving I fu WBC, plts dw Radha Neves MD Nov 15, 2016 14:06
[2016-11-15] MEDS: LEVOFLOXACIN 500 MG TAB PO SCH (15:57)
--- NOTE | 2016-11-15 23:18 | RADRPT ---
EXAM DATE/TIME: 11/15/2016 22:26 [facility] COMPARISON: CHEST SINGLE AP, November 12, 2016, 14:27. INDICATIONS : Short of breat this afternoon. MEDICAL HISTORY : Carcinoma, thyroid. Crohn's disease. Anticoagulant therapy, Aspirin. Blood SURGICAL HISTORY : Hysterectomy. Tonsillectomy. Ovarian cyst removal. Thyroid ENCOUNTER: Subsequent ACUITY: 4 - 6 days PAIN SCORE: 1/10 LOCATION: Bilateral chest FINDINGS: Mild diffuse interstitial prominence with improving airspace disease in the right upper lobe. Cardiom ediastinal contours are stable. Central bony vascularity is indistinct. Remainder of exam is unchange d. CONCLUSION: 1. Improving positive fluid balance. 2. Improving right upper lobe airspace disease. Rafael Lam MD on November 15, 2016 at 23:15 Board Certified Radiologist. This report was verified electronically.
[2016-11-16] VITALS (8 sets, daily range): BP systolic 114–131; BP diastolic 69–87; PULSE 79–102; RESP 17–22; TEMP 95.8–96.7; O2SAT 91–95
[2016-11-16] MEDS: RESP: ALBUTEROL 0.63 MG/3 ML NEB (SCH) NEB ×3 (03:42→15:49)
[2016-11-16] MEDS: LEVOTHYROXINE SODIUM 25 MCG TAB PO SCH (05:58)
[2016-11-16] MEDS: LEVOTHYROXINE SODIUM 112 MCG TAB PO SCH (05:58)
[2016-11-16] MEDS ORDERED: PHARMACY ORDERED LAB ONE (07:45)
[2016-11-16] MEDS: SODIUM CHLORIDE 0.9% FLUSH 10 ML FLUSH IV FLUSH SCH ×2 (08:22→20:59)
[2016-11-16] MEDS: methylPREDNISolone SOD SUCC 40 MG/1 ML VIAL IV PUSH SCH ×2 (08:23→20:59)
[2016-11-16] MEDS: POTASSIUM CHLORIDE 10 MEQ CONTROLLED RELEASE TAB PO SCH ×2 (08:24→20:59)
[2016-11-16] MEDS: PANTOPRAZOLE SOD 20 MG DELAYED RELEASE TAB PO SCH (08:24)
[2016-11-16] MEDS: LEVOFLOXACIN 500 MG TAB PO SCH (08:24)
[2016-11-16] MEDS: ACETAMINOPHEN 325 MG TAB PO PRN ×3 (08:35→19:42)
[2016-11-16 08:45] LABS: AUTOMATED NEUTROPHIL # 11.4 TH/MM3 (1.8-7.7); BASOPHIL % 0.3 % (0.0-2.0); EOSINOPHIL # 0.3 TH/MM3 (0-0.4); EOSINOPHIL % 2.6 % (0.0-4.0); HEMATOCRIT 31.3 % (35.0-46.0); LYMPH % 6.4 % (9.0-44.0); LYMPHOCYTE # 0.8 TH/MM3 (1.0-4.8); MEAN CELL VOLUME 78.9 FL (80.0-100.0); MEAN CORPUSCULAR HEMOGLOBIN 25.8 PG (27.0-34.0); MEAN CORPUSCULAR HGB CONC 32.7 % (32.0-36.0); MONO % 0.4 % (0.0-8.0); NEUT % 90.3 % (16.0-70.0); PLATELET COUNT 68 TH/MM3 (150-450); RED BLOOD COUNT 3.97 MIL/MM3 (4.00-5.30); RED CELL DISTRIBUTION WIDTH 19.6 % (11.6-17.2); WHITE BLOOD COUNT 12.6 TH/MM3 (4.0-11.0)
[2016-11-16 08:48] LABS: CHLORIDE 110 MEQ/L (98-107); POTASSIUM 3.8 MEQ/L (3.5-5.1); SODIUM (NA) 140 MEQ/L (136-145)
[2016-11-16 08:49] LABS: HEMO FLAGS AUTO DIFF
[2016-11-16 08:51] LABS: ANION GAP 10 MEQ/L (5-15); BICARBONATE 20.1 MEQ/L (21.0-32.0)
[2016-11-16 08:52] LABS: BLOOD UREA NITROGEN 44 MG/DL (7-18)
[2016-11-16 08:54] LABS: ALT (GPT) 32 U/L (10-53)
[2016-11-16 08:55] LABS: AST (GOT) 37 U/L (15-37); GLOMERULAR FILTRATION RATE 48 ML/MIN (>89)
[2016-11-16 08:56] LABS: TOTAL BILIRUBIN ADULT 0.4 MG/DL (0.2-1.0)
[2016-11-16 08:58] LABS: ALKALINE PHOSPHATASE 42 U/L (45-117)
[2016-11-16 09:26] LABS: BANDS 8 % (0-6); BLASTS 2 % (0-0); EOSINOPHILS 1 % (0-4); METAMYELOCYTES 3 % (0-1); MYELOCYTES 2 % (0-0); NEUTROPHIL # MANUAL DIFF 8.8 TH/MM3 (1.8-7.7); PLASMA CELLS 1 % (0-0); POLYS (SEG NEUTROPHILS) 57 % (16-70); WBC DIFF SAMPLE 100
[2016-11-16 09:28] LABS: BURR CELLS 1+ (NORMAL); OVALOCYTES 1+ (NORMAL); PLATELET ESTIMATE SMEAR LOW (NORMAL); PLATELET MORPHOLOGY NORMAL (NORMAL); SCAN/DIFF FINAL DIFF MANUAL
--- NOTE | 2016-11-16 10:54 | HHI.PR ---
Subjective Remarks The patient had improved yesterday. She says today that she feels worse. Specifically her respiratory status feels like it's worsening. Platelets remain low at 68. Creatinine has improved to 1.1. GI symptoms persist. She doesn't feel like she could ambulate very well in her present state. Objective Vital Signs Date Time Temp Pulse Resp B/P (MAP) Pulse Ox O2 Delivery O2 Flow Rate FiO2 11/16/16 10:08 17 11/16/16 09:58 94 21 11/16/16 09:22 Room Air 11/16/16 08:43 96.1 95 18 127/81 (96) 91 11/16/16 04:00 95.8 85 18 129/75 (93) 94 11/16/16 00:00 95.8 79 18 123/69 (87) 95 11/15/16 21:08 93 21 11/15/16 20:00 96.7 98 20 102/59 (73) 95 11/15/16 20:00 Room Air 11/15/16 16:29 97.6 91 16 118/63 (81) 90 11/15/16 12:44 98.4 95 16 107/68 (81) 92 I/O 11/15/16 11/15/16 11/15/16 11/16/16 11/16/16 11/16/16 07:00 15:00 23:00 07:00 15:00 23:00 Intake Total 240 ml 1130 ml 760 ml Output Total 400 ml Balance -160 ml 1130 ml 760 ml Intake Oral 240 ml 760 ml IV Total 1130 ml Output Urine Total 400 ml # Voids 2 3 # Bowel Movements 0 1 Result Diagram: 11/16/16 0815 11/16/16 0815 Objective Remarks GENERAL: NAD, A&Ox3 HEAD: Normocephalic. NECK: Supple, trachea midline. No lymphadenopathy. EYES: No scleral icterus. No injection or drainage. CARDIOVASCULAR: Regular rate and rhythm without murmurs, gallops, or rubs. RESPIRATORY: Breath sounds equal bilaterally. No accessory muscle use. GASTROINTESTINAL: Abdomen soft, non-tender, nondistended. MUSCULOSKELETAL: No cyanosis, or edema. SKIN: Warm and dry. NEURO: No focal neurological deficitis. A/P Problem List: (1) Pneumonia ICD Code: J18.9 - Pneumonia, unspecified organism (2) Hypotension ICD Code: I95.9 - Hypotension, unspecified (3) Acute kidney injury ICD Code: N17.9 - Acute kidney failure, unspecified Status: Acute (4) Hyponatremia ICD Code: E87.1 - Hypo-osmolality and hyponatremia Status: Acute (5) Hypokalemia ICD Code: E87.6 - Hypokalemia Status: Acute (6) Dehydration ICD Code: E86.0 - Dehydration Status: Acute Assessment and Plan Assessment and plan 76-year-old female admitted with acute kidney injury and dehydration and Crohn' s disease flareup with diarrhea and abdominal pain. Renal function continues to improve. Continue to monitor renal function. Follow platelets and continue Levaquin for treatment of possible pneumonia. Exacerbation of Crohn's disease Diarrhea Follow clinically Steroids started (Solu-Medrol) Follow for improvement Issues of her lung and kidney could also be related to autoimmunity Acute kidney failure Possible ATN Improving Continue to monitor renal function Nephrology following Pneumonia Continue Levaquin Follow clinical symptoms. No white blood cell count Continue systemic steroids Metabolic acidosis Continue IV hydration with bicarbonate BMP in the morning Hyponatremia Resolved Continue to monitor sodium levels Hypotension May have also been contributory Resolved now Follow for any recurrence DVT prophylaxis SCDs Heparin Problem Qualifiers (1) Pneumonia: Gallito Reed MD Nov 16, 2016 10:54
[2016-11-16 13:19] LABS: VANCOMYCIN TROUGH 19.1 MCG/ML (5.0-10.0)
--- NOTE | 2016-11-16 14:54 | HHI.NPPN ---
Subjective History of Present Illness 76-year-old female with a past medical history of thyroid cancer, hypothyroidism, Crohn's disease with chronic loose bowel motions who came to the hospital with complaint of generalized weakness and nausea and vomiting. I was called to see the patient because of elevated BUN and creatinine. The patient was found to have BUN of 77 and creatinine of 2.8 on admission. Previously she had creatinine of 0.5 in July of this year. Additional Remarks Patient is alert, no SOB, still not eating well, no nausea, has decreased appetite. Objective Data Data Vital Signs Date Time Temp Pulse Resp B/P (MAP) Pulse Ox O2 Delivery O2 Flow Rate FiO2 11/16/16 14:24 18 11/16/16 13:21 96.5 102 17 121/72 (88) 11/16/16 09:58 94 21 11/16/16 09:22 Room Air 11/16/16 08:43 96.1 95 18 127/81 (96) 91 11/16/16 04:00 95.8 85 18 129/75 (93) 94 11/16/16 00:00 95.8 79 18 123/69 (87) 95 11/15/16 21:08 93 21 11/15/16 20:00 96.7 98 20 102/59 (73) 95 11/15/16 20:00 Room Air 11/15/16 16:29 97.6 91 16 118/63 (81) 90 -: 11/16/16 0815 11/16/16 0815 Physical Exam General Appearance: No Acute Distress, Comfortable Eyes Eye Exam: Pupils Equal Throat Throat Exam: Oral Mucosa [place] & Moist Neck Neck Exam: Neck Supple Neck Remarks Restricted movement of neck due to pain. Pulmonary Resp Exam: Breath Sounds Equal, No Distress, Rhonchi, Decreased Bases Cardiology CV Exam: Regular, Normal Sinus Rhythm Gastrointestinal/Abdomen GI Exam: Soft, Non-Tender, Bowel Sounds Present Extremeties Extremities Exam: No Edema Neurologic Neuro Exam: Alert, Awake, Oriented Psychiatric Psych Exam: Appropriate Responses Assessment/Plan Assessment Summary: ТАТЬЯНА/Acute Renal Failure Electrolyte Assessment: Hypokalemia, Metabolic Acidosis Problem List: (1) Dehydration ICD Codes: E86.0 - Dehydration Status: Acute (2) Hypokalemia ICD Codes: E87.6 - Hypokalemia Status: Acute (3) Hyponatremia ICD Codes: E87.1 - Hypo-osmolality and hyponatremia Status: Acute (4) Metabolic acidosis ICD Codes: E87.2 - Acidosis (5) Acute kidney injury ICD Codes: N17.9 - Acute kidney failure, unspecified Status: Acute Plan Patient has been non oliguric Creatinine is better. K is normal, and HCo3 is improving. Has minimal proteinuria, and normal size kidneys. Complements normal. Most likely has ТАТЬЯНА due to pre renal and/or ATN. Continue gentle Hydration. Started on Imodium, has chronic diarrhea. Urine out put is good. Creatinine is now 1.1. Avoid Nephrotoxins. I will sign off from Nephrology, call again if needed. Agueda Lazaro MD Nov 16, 2016 14:54
[2016-11-16] MEDS ORDERED: FUROSEMIDE 20 MG/2 ML VIAL IV PUSH ONE (16:00)
[2016-11-17] VITALS: BP 140/81; PULSE 90; RESP 20; TEMP 97.4; O2SAT 92
[2016-11-17] MEDS: ACETAMINOPHEN 325 MG TAB PO PRN ×4 (03:59→21:19)
[2016-11-17 04:00] VITALS: BP 133/79; PULSE 83; RESP 20; TEMP 97.5; O2SAT 93
[2016-11-17] MEDS: ONDANSETRON HCL 4 MG/2 ML VIAL IV PUSH PRN ×2 (04:02→10:19)
[2016-11-17] MEDS: LEVOTHYROXINE SODIUM 125 MCG TAB PO SCH (06:41)
[2016-11-17 08:00] VITALS: BP_SYST 120; BP_SYST 144; BP_DIAS 75; BP_DIAS 84; PULSE 71; PULSE 84; RESP 20; RESP 21; TEMP 97.6; O2SAT 92
[2016-11-17] MEDS: PANTOPRAZOLE SOD 20 MG DELAYED RELEASE TAB PO SCH (08:51)
[2016-11-17] MEDS: LEVOFLOXACIN 250 MG TAB PO SCH (08:52)
[2016-11-17] MEDS: POTASSIUM CHLORIDE 10 MEQ CONTROLLED RELEASE TAB PO SCH ×2 (08:53→21:19)
[2016-11-17] MEDS: methylPREDNISolone SOD SUCC 40 MG/1 ML VIAL IV PUSH SCH ×2 (08:54→21:18)
[2016-11-17] MEDS: SODIUM CHLORIDE 0.9% FLUSH 10 ML FLUSH IV FLUSH SCH ×2 (08:55→21:20)
--- NOTE | 2016-11-17 11:38 | HHI.PR ---
Subjective Remarks Patient reports nausea and vomiting today. She also feels that she is weaker and has difficulty walking. Increased lower extremity edema and shortness of breath yesterday. She is provided with the diuretic again in the afternoon. Objective Vital Signs Date Time Temp Pulse Resp B/P (MAP) Pulse Ox O2 Delivery O2 Flow Rate FiO2 11/17/16 08:30 Room Air 21 11/17/16 08:00 97.6 84 20 120/75 (90) 92 11/17/16 04:00 97.5 83 20 133/79 (97) 93 11/17/16 00:00 97.4 90 20 140/81 (100) 92 11/16/16 20:00 96.3 83 22 131/87 (102) 93 11/16/16 20:00 93 Room Air 11/16/16 17:20 96.7 93 18 114/75 (88) 94 11/16/16 16:50 96.5 88 18 121/72 (88) 11/16/16 14:24 18 11/16/16 13:21 96.5 102 17 121/72 (88) I/O 11/16/16 11/16/16 11/16/16 11/17/16 11/17/16 11/17/16 07:00 15:00 23:00 07:00 15:00 23:00 Intake Total 760 ml 1680 ml 480 ml Balance 760 ml 1680 ml 480 ml Intake Oral 760 ml 1680 ml 480 ml # Voids 3 9 2 # Bowel Movements 1 3 2 Result Diagram: 11/16/16 0815 11/16/16 0815 Objective Remarks GENERAL: NAD, A&Ox3 HEAD: Normocephalic. NECK: Supple, trachea midline. No lymphadenopathy. EYES: No scleral icterus. No injection or drainage. CARDIOVASCULAR: Regular rate and rhythm without murmurs, gallops, or rubs. RESPIRATORY: Breath sounds equal bilaterally. No accessory muscle use. GASTROINTESTINAL: Abdomen soft, non-tender, nondistended. MUSCULOSKELETAL: No cyanosis, or edema. SKIN: Warm and dry. NEURO: No focal neurological deficitis. A/P Problem List: (1) Pneumonia ICD Code: J18.9 - Pneumonia, unspecified organism (2) Hypotension ICD Code: I95.9 - Hypotension, unspecified (3) Acute kidney injury ICD Code: N17.9 - Acute kidney failure, unspecified Status: Acute (4) Hyponatremia ICD Code: E87.1 - Hypo-osmolality and hyponatremia Status: Acute (5) Hypokalemia ICD Code: E87.6 - Hypokalemia Status: Acute (6) Dehydration ICD Code: E86.0 - Dehydration Status: Acute Assessment and Plan Assessment and plan 76-year-old female admitted with acute kidney injury and dehydration and Crohn' s disease flareup with diarrhea and abdominal pain. Follow-up renal function, platelets, white blood cell count tomorrow morning. Continue antiemetics as needed. Continue PT. Exacerbation of Crohn's disease Diarrhea Follow clinically Steroids started (Solu-Medrol) Follow for improvement Issues of her lung and kidney could also be related to autoimmunity Acute kidney failure Possible ATN Improving Continue to monitor renal function Nephrology following Pneumonia Continue Levaquin Follow clinical symptoms. No white blood cell count Continue systemic steroids Metabolic acidosis Continue IV hydration with bicarbonate BMP in the morning Hyponatremia Resolved Continue to monitor sodium levels Hypotension May have also been contributory Resolved now Follow for any recurrence DVT prophylaxis SCDs Heparin Problem Qualifiers (1) Pneumonia: Gallito Reed MD Nov 17, 2016 11:38
[2016-11-17 12:00] VITALS: BP 112/71; PULSE 80; RESP 20; TEMP 98.5; O2SAT 91
[2016-11-17 16:00] VITALS: BP 118/69; PULSE 79; RESP 18; TEMP 98.1; O2SAT 92
[2016-11-17 20:00] VITALS: BP 116/72; PULSE 83; RESP 20; TEMP 96.1; O2SAT 94
[2016-11-18] VITALS: BP 112/69; PULSE 73; RESP 20; TEMP 96.5; O2SAT 93
[2016-11-18] MEDS: ONDANSETRON HCL 4 MG/2 ML VIAL IV PUSH PRN ×3 (00:44→21:02)
[2016-11-18] MEDS: diphenhydrAMINE HCL 25 MG CAP PO PRN (00:55)
[2016-11-18 04:00] VITALS: BP 134/90; PULSE 97; RESP 20; TEMP 96.1; O2SAT 93
[2016-11-18] MEDS: ACETAMINOPHEN 325 MG TAB PO PRN ×4 (05:09→23:08)
[2016-11-18] MEDS: LEVOTHYROXINE SODIUM 125 MCG TAB PO SCH (05:09)
[2016-11-18 08:00] VITALS: BP 116/77; PULSE 100; RESP 18; TEMP 96.2; O2SAT 93
[2016-11-18 08:08] LABS: AUTOMATED NEUTROPHIL # 9.7 TH/MM3 (1.8-7.7); BASOPHIL # 0.1 TH/MM3 (0-0.2); BASOPHIL % 0.6 % (0.0-2.0); EOSINOPHIL # 0.6 TH/MM3 (0-0.4); EOSINOPHIL % 5.1 % (0.0-4.0); HEMATOCRIT 31.3 % (35.0-46.0); LYMPH % 13.6 % (9.0-44.0); LYMPHOCYTE # 1.6 TH/MM3 (1.0-4.8); MEAN CELL VOLUME 78.8 FL (80.0-100.0); MEAN CORPUSCULAR HEMOGLOBIN 25.9 PG (27.0-34.0); MEAN CORPUSCULAR HGB CONC 32.8 % (32.0-36.0); NEUT % 79.7 % (16.0-70.0); RED BLOOD COUNT 3.96 MIL/MM3 (4.00-5.30); RED CELL DISTRIBUTION WIDTH 19.6 % (11.6-17.2); WHITE BLOOD COUNT 12.1 TH/MM3 (4.0-11.0)
[2016-11-18 08:11] LABS: HEMO FLAGS AUTO DIFF
[2016-11-18 08:12] LABS: POTASSIUM 4.4 MEQ/L (3.5-5.1)
[2016-11-18] MEDS: SODIUM CHLORIDE 0.9% FLUSH 10 ML FLUSH IV FLUSH SCH ×2 (08:29→21:02)
[2016-11-18 08:39] LABS: PLATELET COUNT 140 TH/MM3 (150-450); SCAN/DIFF AUTO DIFF CONFIRMED
[2016-11-18 08:42] LABS: BICARBONATE 25.3 MEQ/L (21.0-32.0); CALCIUM-PROTEIN CORRECTED 8.7 MG/DL (8.5-10.1); TOTAL BILIRUBIN ADULT 0.4 MG/DL (0.2-1.0)
[2016-11-18] MEDS: LEVOFLOXACIN 250 MG TAB PO SCH (08:53)
[2016-11-18] MEDS: PANTOPRAZOLE SOD 20 MG DELAYED RELEASE TAB PO SCH (08:53)
[2016-11-18] MEDS: methylPREDNISolone SOD SUCC 40 MG/1 ML VIAL IV PUSH SCH ×2 (08:54→21:02)
[2016-11-18] MEDS: POTASSIUM CHLORIDE 10 MEQ CONTROLLED RELEASE TAB PO SCH (09:00)
[2016-11-18] MEDS ORDERED: MAGNESIUM HYDROXIDE SUSP 30 ML CUP PO PRN (10:15)
--- NOTE | 2016-11-18 10:32 | HHI.PR ---
Subjective Remarks Patient is still having difficulty walking. White blood cell count is a tall 0.1. Creatinine has dropped to 0.96. Platelet count is increasing at 140. Hypocalcemia present today. Patient reports constipation. She also says that she is not tolerating by mouth intake of potassium. Potassium levels have normalized. Objective Vital Signs Date Time Temp Pulse Resp B/P (MAP) Pulse Ox O2 Delivery O2 Flow Rate FiO2 11/18/16 08:00 96.2 100 18 116/77 (90) 93 11/18/16 04:00 96.1 97 20 134/90 (105) 93 11/18/16 00:00 96.5 73 20 112/69 (83) 93 11/17/16 20:00 Room Air 11/17/16 20:00 96.1 83 20 116/72 (87) 94 11/17/16 16:00 98.1 79 18 118/69 (85) 92 11/17/16 12:00 98.5 80 20 112/71 (85) 91 I/O 11/17/16 11/17/16 11/17/16 11/18/16 11/18/16 11/18/16 07:00 15:00 23:00 07:00 15:00 23:00 Intake Total 480 ml 240 ml 240 ml Balance 480 ml 240 ml 240 ml Intake Oral 480 ml 240 ml 240 ml # Voids 2 3 3 # Bowel Movements 2 3 Result Diagram: 11/18/16 0654 11/18/16 0654 Objective Remarks GENERAL: NAD, A&Ox3 HEAD: Normocephalic. NECK: Supple, trachea midline. No lymphadenopathy. EYES: No scleral icterus. No injection or drainage. CARDIOVASCULAR: Regular rate and rhythm without murmurs, gallops, or rubs. RESPIRATORY: Breath sounds equal bilaterally. No accessory muscle use. GASTROINTESTINAL: Abdomen soft, non-tender, nondistended. MUSCULOSKELETAL: No cyanosis, or edema. SKIN: Warm and dry. NEURO: No focal neurological deficitis. A/P Problem List: (1) Pneumonia ICD Code: J18.9 - Pneumonia, unspecified organism (2) Hypotension ICD Code: I95.9 - Hypotension, unspecified (3) Acute kidney injury ICD Code: N17.9 - Acute kidney failure, unspecified Status: Acute (4) Hyponatremia ICD Code: E87.1 - Hypo-osmolality and hyponatremia Status: Acute (5) Hypokalemia ICD Code: E87.6 - Hypokalemia Status: Acute (6) Dehydration ICD Code: E86.0 - Dehydration Status: Acute Assessment and Plan Assessment and plan 76-year-old female admitted with acute kidney injury and dehydration and Crohn' s disease flareup with diarrhea and abdominal pain. Replace calcium. Monitor calcium level. Stop potassium level. Monitor potassium level. Milk of magnesia for constipation. Exacerbation of Crohn's disease Diarrhea Follow clinically Steroids started (Solu-Medrol) Follow for improvement Issues of her lung and kidney could also be related to autoimmunity Acute kidney failure Possible ATN Improving Continue to monitor renal function Nephrology following Pneumonia Continue Levaquin Follow clinical symptoms. No white blood cell count Continue systemic steroids Metabolic acidosis Continue IV hydration with bicarbonate BMP in the morning Hyponatremia Resolved Continue to monitor sodium levels Hypotension May have also been contributory Resolved now Follow for any recurrence DVT prophylaxis SCDs Heparin Problem Qualifiers (1) Pneumonia: Gallito Reed MD Nov 18, 2016 10:32
[2016-11-18] MEDS ORDERED: CALCIUM CARBONATE 1.25 GM (CA 500 MG) TAB PO ONE (10:45)
[2016-11-18] MEDS: SENNOSIDES 8.6 MG TAB PO PRN (10:59)
[2016-11-18 12:00] VITALS: BP 102/64; PULSE 108; RESP 20; TEMP 96.3; O2SAT 94
[2016-11-18 21:06] VITALS: BP 141/80; PULSE 114; RESP 16; TEMP 98.3; O2SAT 94
[2016-11-19 01:06] VITALS: BP 109/64; PULSE 89; RESP 16; TEMP 96.6; O2SAT 96
[2016-11-19] MEDS: LEVOTHYROXINE SODIUM 25 MCG TAB PO SCH (05:11)
[2016-11-19] MEDS: LEVOTHYROXINE SODIUM 112 MCG TAB PO SCH (05:11)
[2016-11-19 08:00] VITALS: BP 117/63; PULSE 82; RESP 19; TEMP 97.8; O2SAT 91
[2016-11-19] MEDS: SODIUM CHLORIDE 0.9% FLUSH 10 ML FLUSH IV FLUSH SCH ×2 (08:34→21:23)
[2016-11-19] MEDS: LEVOFLOXACIN 250 MG TAB PO SCH (08:46)
[2016-11-19] MEDS: PANTOPRAZOLE SOD 20 MG DELAYED RELEASE TAB PO SCH (08:46)
[2016-11-19] MEDS: ONDANSETRON HCL 4 MG/2 ML VIAL IV PUSH PRN (08:46)
[2016-11-19] MEDS: methylPREDNISolone SOD SUCC 40 MG/1 ML VIAL IV PUSH SCH (08:46)
[2016-11-19 08:52] LABS: BICARBONATE 24.4 MEQ/L (21.0-32.0)
[2016-11-19 09:21] VITALS: O2SAT 89
[2016-11-19 12:00] VITALS: BP 102/71; PULSE 104; RESP 20; TEMP 98.2; O2SAT 94
[2016-11-19] MEDS: ACETAMINOPHEN 325 MG TAB PO PRN ×3 (12:16→23:31)
[2016-11-19] MEDS ORDERED: WALKER WHEELS/F1 MIS (13:22)
--- NOTE | 2016-11-19 13:23 | HHI.FF ---
Face to Face Verification Diagnosis: (1) Acute kidney injury (2) Hyponatremia (3) Upper respiratory infection (4) Viral syndrome (5) Dehydration (6) Pneumonia Physical Therapy Order: Evaluate and Treat Home Health Nursing Order: Nursing assessment with vital signs I have seen patient Vane Hicks on 11/19/16. My clinical findings support the need for the requested home health care services because: Patient has SOB I certify that my clinical findings support that this patient is homebound because: Unsafe to leave home unassisted Need for psychosocial assistance Lucia Reyna MD Nov 19, 2016 13:23
--- NOTE | 2016-11-19 13:50 | HHI.PR ---
Subjective Remarks Patient c/o nausea from the levaquin. Denies dyspnea, fever, chills. Still feels weak. Complains of edema in her feet. Objective Vitals Vital Signs Date Time Temp Pulse Resp B/P (MAP) Pulse Ox O2 Delivery O2 Flow Rate FiO2 11/19/16 12:00 98.2 104 20 102/71 (81) 94 11/19/16 09:21 89 21 11/19/16 08:15 Nasal Cannula 11/19/16 08:00 97.8 82 19 117/63 (81) 91 11/19/16 04:31 11/19/16 01:06 96.6 89 16 109/64 (79) 96 11/18/16 21:06 98.3 114 16 141/80 (100) 94 11/18/16 20:00 Room Air I/O 11/18/16 11/18/16 11/18/16 11/19/16 11/19/16 11/19/16 07:00 15:00 23:00 07:00 15:00 23:00 Intake Total 240 ml 240 ml Balance 240 ml 240 ml Intake Oral 240 ml 240 ml # Voids 3 5 4 # Bowel Movements 0 1 Result Diagram: 11/18/16 0654 11/19/16 0720 Objective Remarks GENERAL: Well-nourished, well-developed patient. SKIN: Warm and dry. HEAD: Normocephalic. EYES: No scleral icterus. No injection or drainage. NECK: Supple, trachea midline. No JVD or lymphadenopathy. CARDIOVASCULAR: Regular rate and rhythm without murmurs, gallops, or rubs. RESPIRATORY: Breath sounds equal bilaterally. Crackles left upper lobe. No accessory muscle use. GASTROINTESTINAL: Abdomen soft, non-tender, nondistended. EXTREMITIES: 1+ edema of feet and ankles. NEUROLOGICAL: Awake, alert, and oriented x 3. Non-focal. A/P Problem List: (1) Viral syndrome ICD Code: B34.9 - Viral infection, unspecified (2) Hyponatremia ICD Code: E87.1 - Hypo-osmolality and hyponatremia Status: Acute (3) Acute kidney injury ICD Code: N17.9 - Acute kidney failure, unspecified Status: Acute (4) Hypotension ICD Code: I95.9 - Hypotension, unspecified (5) Metabolic acidosis ICD Code: E87.2 - Acidosis (6) Thrombocytopenia ICD Code: D69.6 - Thrombocytopenia, unspecified (7) Viral pneumonitis ICD Code: J12.9 - Viral pneumonia, unspecified (8) Fluid overload ICD Code: E87.70 - Fluid overload, unspecified (9) Hypokalemia ICD Code: E87.6 - Hypokalemia Status: Acute Assessment and Plan 76-year-old female Acute kidney failure/Possible ATN - resolved Continue to monitor renal function Nephrology following Pneumonia versus virally pneumonitis versus fluid overload Status post 7 days of Levaquin, will DC. Repeat chest x-ray 11/15 showed improved aeration. Infectious disease consultation appreciated. Evidence to point towards lateral infection includes lack of leukocytosis on admission, thrombocytopenia. Lasix 40 mg IV push today. Check oxygen walk test today. Possible mild Exacerbation of Crohn's disease Diarrhea Improved Follow clinically DC steroids Metabolic acidosis-resolved Fluid overload with ankle edema 40 mg IV Lasix 1 Add BALJIT hose Hyponatremia Resolved Continue to monitor sodium levels Hypotension May have also been contributory Resolved now Follow for any recurrence DVT prophylaxis SCDs Heparin Discharge Planning Probable discharge home tomorrow with home health care and PT. Discussed with family at bedside. Lucia Reyna MD Nov 19, 2016 13:50
[2016-11-19] MEDS ORDERED: FUROSEMIDE 40 MG/4 ML VIAL IV PUSH ONE (14:00)
[2016-11-19 16:00] VITALS: BP 100/62; PULSE 97; RESP 18; TEMP 97.5; O2SAT 93
[2016-11-19] MEDS: diphenhydrAMINE HCL 25 MG CAP PO PRN (21:23)
[2016-11-19 21:50] VITALS: BP 118/66; PULSE 84; RESP 20; TEMP 97; O2SAT 94
[2016-11-20 01:13] VITALS: BP 118/66; PULSE 84; RESP 20; TEMP 97; O2SAT 94
[2016-11-20] MEDS: ACETAMINOPHEN 325 MG TAB PO PRN ×4 (04:21→22:26)
[2016-11-20] MEDS: LEVOTHYROXINE SODIUM 125 MCG TAB PO SCH (05:24)
[2016-11-20] MEDS: ONDANSETRON HCL 4 MG/2 ML VIAL IV PUSH PRN ×2 (07:51→16:31)
[2016-11-20] MEDS: PANTOPRAZOLE SOD 20 MG DELAYED RELEASE TAB PO SCH (07:51)
[2016-11-20] MEDS: SODIUM CHLORIDE 0.9% FLUSH 10 ML FLUSH IV FLUSH SCH ×2 (07:52→21:23)
[2016-11-20 07:53] LABS: BICARBONATE 26.8 MEQ/L (21.0-32.0); POTASSIUM 3.1 MEQ/L (3.5-5.1)
[2016-11-20 08:41] LABS: AUTOMATED NEUTROPHIL # 8.6 TH/MM3 (1.8-7.7); BASOPHIL % 0.3 % (0.0-2.0); EOSINOPHIL # 0.6 TH/MM3 (0-0.4); EOSINOPHIL % 5.3 % (0.0-4.0); LYMPH % 12.3 % (9.0-44.0); LYMPHOCYTE # 1.3 TH/MM3 (1.0-4.8); MEAN CELL VOLUME 79.2 FL (80.0-100.0); MEAN CORPUSCULAR HEMOGLOBIN 26.2 PG (27.0-34.0); MEAN CORPUSCULAR HGB CONC 33.1 % (32.0-36.0); MONO % 0.6 % (0.0-8.0); NEUT % 81.5 % (16.0-70.0); RED BLOOD COUNT 3.91 MIL/MM3 (4.00-5.30); RED CELL DISTRIBUTION WIDTH 19.2 % (11.6-17.2); WHITE BLOOD COUNT 10.6 TH/MM3 (4.0-11.0)
[2016-11-20] MEDS ORDERED: POTASSIUM CHLORIDE 10 MEQ CONTROLLED RELEASE TAB PO ONE (09:30)
[2016-11-20 09:32] LABS: HEMO FLAGS AUTO DIFF
[2016-11-20 09:39] VITALS: BP 121/64; PULSE 107; RESP 15; TEMP 97; O2SAT 92
--- NOTE | 2016-11-20 10:39 | HHI.PR ---
Subjective Remarks Patient states she feels weak and achy all over. She does not think she can go home today. The electricity is not yet on in her house. Patient states "I feel like I have the flu and like I'm dying." Patient also worried about taking oral potassium and that it will cause her to be nauseated. Patient states that we have killed her with antibiotics. Family concerned about her weakness and achiness. Discussed with patient's and son at bedside. Objective Vitals Vital Signs Date Time Temp Pulse Resp B/P (MAP) Pulse Ox O2 Delivery O2 Flow Rate FiO2 11/20/16 10:32 18 11/20/16 09:39 97.0 107 15 121/64 (83) 92 11/20/16 04:10 11/20/16 01:13 97.0 84 20 118/66 (83) 94 11/19/16 21:50 97.0 84 20 118/66 (83) 94 11/19/16 20:00 Room Air 11/19/16 16:00 97.5 97 18 100/62 (75) 93 11/19/16 12:00 98.2 104 20 102/71 (81) 94 I/O 11/19/16 11/19/16 11/19/16 11/20/16 11/20/16 11/20/16 06:59 14:59 22:59 06:59 14:59 22:59 Intake Total 600 ml Balance 600 ml Intake Oral 600 ml # Voids 4 2 3 # Bowel Movements 1 0 1 Result Diagram: 11/20/16 0537 11/20/16 0537 Objective Remarks GENERAL: Well-nourished, well-developed patient. SKIN: Warm and dry. HEAD: Normocephalic. EYES: No scleral icterus. No injection or drainage. NECK: Supple, trachea midline. No JVD or lymphadenopathy. CARDIOVASCULAR: Regular rate and rhythm without murmurs, gallops, or rubs. RESPIRATORY: Breath sounds equal bilaterally. Crackles left upper lobe. No accessory muscle use. GASTROINTESTINAL: Abdomen soft, non-tender, nondistended. EXTREMITIES: 1+ edema of feet and ankles. NEUROLOGICAL: Awake, alert, and oriented x 3. Non-focal. A/P Problem List: (1) Viral syndrome ICD Code: B34.9 - Viral infection, unspecified (2) Hyponatremia ICD Code: E87.1 - Hypo-osmolality and hyponatremia Status: Acute (3) Acute kidney injury ICD Code: N17.9 - Acute kidney failure, unspecified Status: Acute (4) Hypotension ICD Code: I95.9 - Hypotension, unspecified (5) Metabolic acidosis ICD Code: E87.2 - Acidosis (6) Thrombocytopenia ICD Code: D69.6 - Thrombocytopenia, unspecified (7) Viral pneumonitis ICD Code: J12.9 - Viral pneumonia, unspecified (8) Fluid overload ICD Code: E87.70 - Fluid overload, unspecified (9) Hypokalemia ICD Code: E87.6 - Hypokalemia Status: Acute Assessment and Plan 76-year-old female Acute kidney failure/Possible ATN - resolved Continue to monitor renal function Nephrology following Pneumonia versus virally pneumonitis versus fluid overload Status post 7 days of Levaquin. Repeat chest x-ray 11/15 showed improved aeration. Infectious disease consultation appreciated. Evidence to point towards lateral infection includes lack of leukocytosis on admission, thrombocytopenia. Status post IV Lasix 40 mg IV push 11/19 Does not require oxygen per walk test. Possible mild Exacerbation of Crohn's disease, Diarrhea - now resolved Improved Follow clinically Status post course of steroids Thrombocytopenia - likely due to vial illness, improving Platelets pending today. Repeat CBC in the morning Metabolic acidosis-resolved Fluid overload with ankle edema Status post 40 mg IV Lasix 1 Add BALJIT hollis - patient requests extra-large which we do not have here apparently Hyponatremia Resolved Continue to monitor sodium levels Hypotension May have also been contributory Resolved now Follow for any recurrence Hypokalemia secondary to diuretics Replete potassium today recheck BMP in the morning DVT prophylaxis SCDs Heparin Discharge Planning Probable discharge home tomorrow with home health care and PT. Patient declined [facility] facility. Discussed with family at bedside. Lucia Reyna MD Nov 20, 2016 10:39
[2016-11-20] MEDS ORDERED: NEBULIZER1 MI1 (10:41)
[2016-11-20 11:35] LABS: PLATELET COUNT 130 TH/MM3 (150-450)
[2016-11-20] MEDS ORDERED: BEDSIDE COMMODE1 MI1 (11:45)
[2016-11-20] MEDS ORDERED: RESP: ALBUTEROL 2.5 MG/IPRATROPIUM 0.5 MG NEB (SCH) NEB ONE (12:30)
[2016-11-20] MEDS ORDERED: RESP: ALBUTEROL 2.5 MG/IPRATROPIUM 0.5 MG NEB (PRN) NEB (12:30)
[2016-11-20 12:41] LABS: SCAN/DIFF AUTO DIFF CONFIRMED
[2016-11-20 13:00] VITALS: BP 96/65; PULSE 94; RESP 20; TEMP 99.8; O2SAT 94
[2016-11-20 14:04] LABS: BANDS 11 % (0-6); EOSINOPHILS 9 % (0-4); METAMYELOCYTES 4 % (0-1); POLYS (SEG NEUTROPHILS) 39 % (16-70)
[2016-11-20 14:05] LABS: BLASTS 5 % (0-0); MYELOCYTES 2 % (0-0); NEUTROPHIL # MANUAL DIFF 5.9 TH/MM3 (1.8-7.7)
[2016-11-20] MEDS: SENNOSIDES 8.6 MG TAB PO PRN (16:41)
[2016-11-20 17:25] VITALS: BP 115/61; PULSE 120; RESP 20; TEMP 100.1; O2SAT 95
[2016-11-20 20:00] VITALS: BP 135/74; PULSE 115; RESP 18; TEMP 100.1; O2SAT 92
[2016-11-20] MEDS ORDERED: PROMETHAZINE HCL 25 MG SUPP RECTAL ONE (22:00)
[2016-11-20] MEDS ORDERED: PROMETHAZINE HCL 12.5 MG SUPP RECTAL ONE (22:00)
[2016-11-21] VITALS (7 sets, daily range): BP systolic 86–142; BP diastolic 61–82; PULSE 90–118; RESP 16–18; TEMP 97.4–99.8; O2SAT 90–95
[2016-11-21] MEDS: ONDANSETRON HCL 4 MG/2 ML VIAL IV PUSH PRN ×4 (00:03→18:22)
[2016-11-21] MEDS: ACETAMINOPHEN 325 MG TAB PO PRN ×3 (04:34→16:56)
[2016-11-21] MEDS: LEVOTHYROXINE SODIUM 25 MCG TAB PO SCH (05:48)
[2016-11-21] MEDS: LEVOTHYROXINE SODIUM 112 MCG TAB PO SCH (05:48)
[2016-11-21 07:12] LABS: HEMATOCRIT 30.1 % (35.0-46.0); MEAN CELL VOLUME 77.7 FL (80.0-100.0); MEAN CORPUSCULAR HGB CONC 33.4 % (32.0-36.0); PLATELET COUNT 113 TH/MM3 (150-450); RED BLOOD COUNT 3.87 MIL/MM3 (4.00-5.30); RED CELL DISTRIBUTION WIDTH 18.6 % (11.6-17.2); WHITE BLOOD COUNT 10.1 TH/MM3 (4.0-11.0)
[2016-11-21] MEDS: PANTOPRAZOLE SOD 20 MG DELAYED RELEASE TAB PO SCH (09:16)
[2016-11-21] MEDS: SODIUM CHLORIDE 0.9% FLUSH 10 ML FLUSH IV FLUSH SCH ×2 (09:17→20:45)
[2016-11-21 09:54] LABS: POTASSIUM 3.8 MEQ/L (3.5-5.1)
[2016-11-21 09:59] LABS: BICARBONATE 25.7 MEQ/L (21.0-32.0)
[2016-11-21 10:07] LABS: HEMO FLAGS AUTO DIFF
[2016-11-21 10:17] LABS: BANDS 14 % (0-6); BASOPHILS 1 % (0-2); BLASTS 6 % (0-0); CORRECTED NUCLEATED RBC 2 /100 WBC (0-0); EOSINOPHILS 6 % (0-4); METAMYELOCYTES 2 % (0-1); MYELOCYTES 3 % (0-0); NEUTROPHIL # MANUAL DIFF 6.7 TH/MM3 (1.8-7.7); POLYS (SEG NEUTROPHILS) 47 % (16-70); WBC DIFF SAMPLE 100
[2016-11-21 10:19] LABS: OVALOCYTES 2+ (NORMAL)
[2016-11-21 10:20] LABS: TOXIC GRANULATION 1+ (NORMAL)
[2016-11-21 10:22] LABS: DOHLE BODIES PRESENT (NONE SEEN); PLATELET ESTIMATE SMEAR LOW (NORMAL)
[2016-11-21 10:23] LABS: PLATELET MORPHOLOGY NORMAL (NORMAL); SCAN/DIFF FINAL DIFF MANUAL
--- NOTE | 2016-11-21 11:12 | RADRPT ---
EXAM DATE/TIME: 11/21/2016 10:23 [facility] COMPARISON: CHEST SINGLE AP, November 15, 2016, 22:26. INDICATIONS : Fever. Cough. Short of breath. MEDICAL HISTORY : Carcinoma, thyroid. Ovarian cyst SURGICAL HISTORY : Cholecystectomy. ENCOUNTER: Initial ACUITY: 2 weeks PAIN SCORE: 0/10 LOCATION: Bilateral chest FINDINGS: Right upper lobe streakiness is again noted and stable. Left basilar streakiness is also stable. No new infiltrate or pulmonary congestion is noted. The heart is stable. Degenerative changes are not ed within the thoracic spine. CONCLUSION: No significant change compared to 11/15/2016. Cameron Bassett MD on November 21, 2016 at 10:40 Board Certified Radiologist. This report was verified electronically.
--- NOTE | 2016-11-21 13:00 | HHI.PR ---
Subjective Remarks The patient complains of bilateral leg swelling. States she feels warm. Had low-grade fever last night with a MAXIMUM TEMPERATURE of 100.1. Tachycardic. Objective Vitals Vital Signs Date Time Temp Pulse Resp B/P (MAP) Pulse Ox O2 Delivery O2 Flow Rate FiO2 11/21/16 08:39 98.5 113 16 108/65 (79) 95 11/21/16 08:00 Room Air 21 11/21/16 00:00 99.0 118 18 110/61 (77) 90 11/20/16 20:34 Room Air 11/20/16 20:00 100.1 115 18 135/74 (94) 92 11/20/16 17:25 100.1 120 20 115/61 (79) 95 11/20/16 17:20 95 Nasal Cannula 1.00 11/20/16 15:48 16 11/20/16 13:00 99.8 94 20 96/65 (75) 94 I/O 11/20/16 11/20/16 11/20/16 11/21/16 11/21/16 11/21/16 07:00 15:00 23:00 07:00 15:00 23:00 Intake Total 240 ml 100 ml Balance 240 ml 100 ml Intake Oral 240 ml 100 ml # Voids 3 1 # Bowel Movements 1 Result Diagram: 11/21/16 0610 11/21/16 0846 Imaging Last Impressions Chest X-Ray 11/21/16 0000 Signed Impressions: Service Date/Time: Monday, November 21, 2016 10:23 - CONCLUSION: No significant change compared to 11/15/2016. Cameron Bassett MD Lower Extremity Ultrasound 11/12/16 0000 Signed Impressions: Service Date/Time: Saturday, November 12, 2016 17:27 - CONCLUSION: Negative study with no evidence of deep venous thrombosis. Aly Ballard MD Head CT 11/12/16 0000 Signed Impressions: Service Date/Time: Saturday, November 12, 2016 15:34 - CONCLUSION: Negative for an acute process. Goldy Newman MD FA[facility] Renal Ultrasound 11/11/16 0000 Signed Impressions: Service Date/Time: Friday, November 11, 2016 15:54 - CONCLUSION: Unremarkable renal ultrasound. There is no hydronephrosis. Goldy Newman MD [facility] Abdomen/Pelvis CT 11/10/16 0000 Signed Impressions: Service Date/Time: Thursday, November 10, 2016 11:41 - CONCLUSION: I don't see an abscess or free fluid to suggest an exacerbation of Crohn's disease. There is no asymmetrical bowel dilatation. Goldy Newman MD FA[facility] Objective Remarks AAOx3, nad lying in bed Very warm skin S1S2 RRR, no MRG + 1 edema of BL lower extremities with RLE slightly bigger than the left abdmen soft, non tender, non distended Medications and IVs Current Medications Medications (Trade) Dose Ordered Sig/[place] Route Start Time Stop Time Status Last Admin (NS Flush) 2 ml UNSCH PRN IV FLUSH 11/09/16 13:30 (NS Flush) 2 ml BID IV FLUSH 11/09/16 21:00 11/21/16 09:17 (Narcan Inj) 0.4 mg UNSCH PRN IV 11/09/16 13:30 (Senokot) 17.2 mg Q12H PRN PO 11/09/16 13:30 11/20/16 16:41 (Protonix) 20 mg DAILY PO 11/10/16 09:00 11/21/16 09:16 (Benadryl) 25 mg Q6H PRN PO 11/09/16 16:15 11/19/16 21:23 (Tylenol) 650 mg Q4H PRN PO 11/09/16 22:30 11/21/16 09:16 (Zofran Inj) 4 mg Q6HR PRN IV PUSH 11/09/16 23:30 11/21/16 05:48 (Synthroid) 112 mcg MoWeFr@0600 PO 11/12/16 07:30 11/21/16 05:48 (Synthroid) 25 mcg MoWeFr@0600 PO 11/12/16 07:30 11/21/16 05:48 (Synthroid) 125 mcg SuTuThSa@0600 PO 11/13/16 06:00 11/20/16 05:24 (Milk Of Magnesia Liq) 30 ml DAILY PRN PO 11/18/16 10:15 (Duoneb Neb) 1 ampule Q4HR NEB PRN NEB 11/20/16 12:30 A/P Problem List: (1) Viral syndrome ICD Code: B34.9 - Viral infection, unspecified (2) Hyponatremia ICD Code: E87.1 - Hypo-osmolality and hyponatremia Status: Acute (3) Acute kidney injury ICD Code: N17.9 - Acute kidney failure, unspecified Status: Acute (4) Hypotension ICD Code: I95.9 - Hypotension, unspecified (5) Metabolic acidosis ICD Code: E87.2 - Acidosis (6) Thrombocytopenia ICD Code: D69.6 - Thrombocytopenia, unspecified (7) Viral pneumonitis ICD Code: J12.9 - Viral pneumonia, unspecified (8) Fluid overload ICD Code: E87.70 - Fluid overload, unspecified (9) Hypokalemia ICD Code: E87.6 - Hypokalemia Status: Acute (10) Sepsis ICD Code: A41.9 - Sepsis, unspecified organism (11) Pneumonia ICD Code: J18.9 - Pneumonia, unspecified organism Assessment and Plan 76-year-old female Acute kidney failure/Possible ATN - resolved Continue to monitor renal function Nephrology following Pneumonia versus virally pneumonitis versus fluid overload Status post 7 days of Levaquin. Repeat chest x-ray 11/15 showed improved aeration. Infectious disease consultation appreciated. Evidence to point towards lateral infection includes lack of leukocytosis on admission, thrombocytopenia. Status post IV Lasix 40 mg IV push 11/19 Does not require oxygen per walk test. 11/21 Patient meets sepsis criterial with tachycardia, bandemia of 14% with toxic granulations and leukocytosis on 11/19 and 11/20 as well as low grade fever. Check urinalysis, will obtain blood cultures. Chest x-ray ordered and showed no significant change compared to 11/15 with the patient had some pulmonary congestion and improving right upper lobe airspace disease. I will order a CTA of the chest to r/o PE and to better asses abnormalities on on chest x-ray. Possible mild Exacerbation of Crohn's disease, Diarrhea - now resolved Improved Follow clinically Status post course of steroids Thrombocytopenia - likely due to vial illness, improving Platelets trending down. 140 - 130 - 113. No evidence of active bleeding.Continue to monitor CBC. Metabolic acidosis-resolved Fluid overload with ankle edema Status post 40 mg IV Lasix 1 Add BALJIT hollis - patient requests extra-large which we do not have here apparently Hyponatremia Resolved Continue to monitor sodium levels Hypotension May have also been contributory Resolved now Follow for any recurrence Hypokalemia secondary to diuretics Replete potassium today recheck BMP in the morning DVT prophylaxis SCDs Heparin Problem Qualifiers (1) Pneumonia: Teo Paredes MD Nov 21, 2016 13:00
[2016-11-21] MEDS ORDERED: PIPERACIL-TAZO 4.5 GM PREMIX 100 ML IV SCH (14:00)
[2016-11-21] MEDS: VANCOMYCIN INJ 1,000 MG in SODIUM CHLOR 0.9% 250 ML INJ 250 ML IV SCH (14:15)
--- NOTE | 2016-11-21 15:10 | RADRPT ---
EXAM DATE/TIME: 11/21/2016 14:24 [facility] COMPARISON: US LEG BILATERAL VENOUS DOPPLER, November 12, 2016, 17:27. INDICATIONS : Bilateral leg swelling. MEDICAL HISTORY : Carcinoma, thyroid. Crohn's disease. anticoagulant therapy, aspirin. dyspnea. acute kidney injury. blood transfusions. SURGICAL HISTORY : Cholecystectomy.Hysterectomy. Tonsillectomy.Adenoidectomy. Thyroidectomy. Ovarian cyst removal. ENCOUNTER: Subsequent ACUITY: 2 weeks PAIN SCORE: 5/10 LOCATION: Bilateral legs. TECHNIQUE: Venous ultrasound of the left and right leg was performed from the inguinal ligament to the proximal calf. Real-time, color Doppler and spectral tracing, compression and augmentation techniques were us ed. FINDINGS: RIGHT LEG: There is normal compressibility of the deep venous system from the inguinal region to the proximal ca lf. No echogenic clot is seen in the lumen of the common femoral, femoral, popliteal, and posterior tibial veins. There is a normal response of the venous system to proximal and distal augmentation an d respiration. LEFT LEG: There is normal compressibility of the deep venous system from the inguinal region to the proximal ca lf. No echogenic clot is seen in the lumen of the common femoral, femoral, popliteal, and posterior tibial veins. There is a normal response of the venous system to proximal and distal augmentation an d respiration. CONCLUSION: No evidence of deep venous thrombosis within the lower extremities. Cameron Bassett MD on November 21, 2016 at 15:08 Board Certified Radiologist. This report was verified electronically.
[2016-11-21] MEDS ORDERED: RESP: ALBUTEROL 2.5 MG/IPRATROPIUM 0.5 MG NEB (SCH) NEB (16:00)
[2016-11-21] MEDS ORDERED: IOHEXOL 350 MG/ML 10 ML VIAL (for RAD DIAG) IVCONTRAST ONE (16:27)
[2016-11-21] MEDS: PIPERACIL-TAZO 4.5 GM PREMIX 100 ML IV SCH (16:49)
--- NOTE | 2016-11-21 16:53 | RADRPT ---
EXAM DATE/TIME: 11/21/2016 16:20 [place] COMPARISON: CT PULMONARY ANGIOGRAM, July 25, 2016, 2:04. INDICATIONS : Shortness of breath with chest pressure. IV CONTRAST: 75 cc Omnipaque 350 (iohexol) IV RADIATION DOSE: 18.42 CTDIvol (mGy) MEDICAL HISTORY : Carcinoma, thyroid. SURGICAL HISTORY : Hysterectomy. ENCOUNTER: Initial ACUITY: 1 day PAIN SCALE: 0/10 LOCATION: chest TECHNIQUE: Volumetric scanning of the chest was performed using a pulmonary embolism protocol MIP images were re constructed. Using automated exposure control and adjustment of the mA and/or kV according to patien t size, radiation dose was kept as low as reasonably achievable to obtain optimal diagnostic quality images. DICOM format image data is available electronically for review and comparison. Follow-up recommendations for detected pulmonary nodules are based at a minimum on nodule size and pa tient risk factors according to Fleischner Society Guidelines. FINDINGS: PULMONARY ARTERIES: Pulmonary arteries are prominent centrally without evidence for emboli. LUNGS: Mild interstitial changes are present in both lungs with minimal bibasilar parenchymal changes eviden t. PLEURAE: There is no pleural thickening or pleural effusion. MEDIASTINUM: Heart is enlarged without pericardial effusion. There is no adenopathy. MUSCULOSKELETAL: Within normal limits for patient age. MISCELLANEOUS: The visualized upper abdominal organs demonstrate no acute abnormality. CONCLUSION: Deterioration in appearance the lungs with increasing bibasilar clinical changes and mild interstitia l edema. Negative for central pulmonary emboli. Goldy Newman MD FACR on November 21, 2016 at 16:50 Board Certified Radiologist. This report was verified electronically.
[2016-11-21] MEDS: diphenhydrAMINE HCL 25 MG CAP PO PRN (20:44)
[2016-11-21 21:13] LABS: BLOOD, URINE SMALL (NEG); GLUCOSE,URINE NEG (NEG); KETONE, URINE NEG (NEG); NITRITE,URINE NEG (NEG)
[2016-11-21 21:21] LABS: URINE COLOR YELLOW (YELLW/STRAW)
[2016-11-21 21:22] LABS: COMMENT (UR) CULT NOT INDICATED; CULTURE IF INDICATED CULT NOT INDICATED; RBC, URINE 0-3 /hpf (0-3); RENAL EPITHELIAL CELLS 0-5 /hpf; SQUAMOUS EPITHELIAL CELL URINE 0-5 /hpf (0-5)
[2016-11-22] VITALS (7 sets, daily range): BP systolic 92–120; BP diastolic 53–83; PULSE 91–120; RESP 16–24; TEMP 98.1–100.2; O2SAT 92–94
[2016-11-22] MEDS: PIPERACIL-TAZO 4.5 GM PREMIX 100 ML IV SCH ×3 (00:12→16:00)
[2016-11-22] MEDS: ACETAMINOPHEN 325 MG TAB PO PRN ×3 (00:13→16:40)
[2016-11-22] MEDS: ONDANSETRON HCL 4 MG/2 ML VIAL IV PUSH PRN ×3 (01:03→21:18)
[2016-11-22] MEDS: VANCOMYCIN INJ 1,000 MG in SODIUM CHLOR 0.9% 250 ML INJ 250 ML IV SCH (01:04)
[2016-11-22] MEDS: LEVOTHYROXINE SODIUM 125 MCG TAB PO SCH (06:48)
[2016-11-22] MEDS: PANTOPRAZOLE SOD 20 MG DELAYED RELEASE TAB PO SCH (06:50)
[2016-11-22] MEDS: SODIUM CHLORIDE 0.9% FLUSH 10 ML FLUSH IV FLUSH SCH ×2 (08:42→21:00)
[2016-11-22] MEDS ORDERED: Vancomycin Consult Pharmacy 1 EA OTHER SCH ×2 (09:15→18:45)
[2016-11-22] MEDS ORDERED: SODIUM CHLOR 0.9% 250 ML INJ 250 ML IV ONE ×2 (11:15→15:30)
[2016-11-22 11:28] LABS: AUTOMATED NEUTROPHIL # 8.5 TH/MM3 (1.8-7.7); BASOPHIL # 0.1 TH/MM3 (0-0.2); BASOPHIL % 0.5 % (0.0-2.0); EOSINOPHIL # 0.6 TH/MM3 (0-0.4); EOSINOPHIL % 5.3 % (0.0-4.0); HEMATOCRIT 30.6 % (35.0-46.0); LYMPH % 12.5 % (9.0-44.0); LYMPHOCYTE # 1.5 TH/MM3 (1.0-4.8); MEAN CELL VOLUME 77.9 FL (80.0-100.0); MEAN CORPUSCULAR HEMOGLOBIN 25.8 PG (27.0-34.0); MEAN CORPUSCULAR HGB CONC 33.1 % (32.0-36.0); MONO % 10.1 % (0.0-8.0); NEUT % 71.6 % (16.0-70.0); RED BLOOD COUNT 3.93 MIL/MM3 (4.00-5.30); RED CELL DISTRIBUTION WIDTH 18.5 % (11.6-17.2); WHITE BLOOD COUNT 11.9 TH/MM3 (4.0-11.0)
[2016-11-22 11:35] LABS: CHLORIDE 103 MEQ/L (98-107); POTASSIUM 3.3 MEQ/L (3.5-5.1); SODIUM (NA) 136 MEQ/L (136-145)
[2016-11-22 11:40] LABS: ANION GAP 10 MEQ/L (5-15); BICARBONATE 23.5 MEQ/L (21.0-32.0); BLOOD UREA NITROGEN 18 MG/DL (7-18); MAGNESIUM 1.3 MG/DL (1.5-2.5)
[2016-11-22 11:43] LABS: ALT (GPT) 17 U/L (10-53); AST (GOT) 16 U/L (15-37); GLOMERULAR FILTRATION RATE 54 ML/MIN (>89)
[2016-11-22 11:44] LABS: TOTAL BILIRUBIN ADULT 0.7 MG/DL (0.2-1.0)
[2016-11-22 11:46] LABS: ALKALINE PHOSPHATASE 43 U/L (45-117)
[2016-11-22 12:25] LABS: HEMO FLAGS AUTO DIFF
[2016-11-22 12:27] LABS: PLATELET COUNT 12 TH/MM3 (150-450)
[2016-11-22 13:07] LABS: BANDS 10 % (0-6); BASOPHILS 1 % (0-2); BLASTS 10 % (0-0); EOSINOPHILS 6 % (0-4); METAMYELOCYTES 1 % (0-1); MYELOCYTES 2 % (0-0); NEUTROPHIL # MANUAL DIFF 7.9 TH/MM3 (1.8-7.7); POLYS (SEG NEUTROPHILS) 53 % (16-70); WBC DIFF SAMPLE 100
[2016-11-22 13:08] LABS: DOHLE BODIES PRESENT (NONE SEEN); OVALOCYTES 1+ (NORMAL)
[2016-11-22 13:09] LABS: PLATELET ESTIMATE SMEAR LOW (NORMAL); PLATELET MORPHOLOGY ENLARGED (NORMAL); SCAN/DIFF FINAL DIFF MANUAL
[2016-11-22] MEDS ORDERED: POTASSIUM CHLORIDE 10 MEQ CONTROLLED RELEASE TAB PO ONE (13:30)
[2016-11-22] MEDS: MAGNESIUM SULFATE 1 GM PREMIX 100 ML IV SCH ×2 (14:09→15:30)
[2016-11-22] MEDS ORDERED: SODIUM CHLORID 0.9% 500 ML INJ 500 ML IV ONE (15:30)
--- NOTE | 2016-11-22 15:46 | HHI.PR ---
Subjective Remarks Deferred entry - patient seen at 11:35 am Patient states that she feels really weak still having low grade fevers t max 99.8 Patient has mild cough denies cp or sob noted to be hypotensive Objective Vitals Vital Signs Date Time Temp Pulse Resp B/P (MAP) Pulse Ox O2 Delivery O2 Flow Rate FiO2 11/22/16 12:00 100.2 120 20 92/59 (70) 94 11/22/16 08:45 Room Air 21 11/22/16 08:21 93 Nasal Cannula 1.00 11/22/16 08:00 99.6 98 20 96/64 (75) 93 11/22/16 00:00 98.4 120 16 111/83 (92) 93 11/21/16 20:54 Nasal Cannula 1.00 21 11/21/16 20:25 92 Nasal Cannula 1.00 11/21/16 20:00 97.4 100 18 86/65 (72) 94 11/21/16 16:00 99.8 105 16 142/82 (102) 93 I/O 11/21/16 11/21/16 11/21/16 11/22/16 11/22/16 11/22/16 07:00 15:00 23:00 07:00 15:00 23:00 Intake Total 100 ml 950 ml 240 ml 350 ml Output Total 2 ml Balance 100 ml 948 ml 240 ml 350 ml Intake Oral 100 ml 600 ml 240 ml IV Total 350 ml 350 ml Stool Total 2 ml # Voids 1 4 4 Result Diagram: 11/22/16 1420 11/22/16 1114 Imaging Last Impressions Lower Extremity Ultrasound 11/21/16 0000 Signed Impressions: Service Date/Time: Monday, November 21, 2016 14:24 - CONCLUSION: No evidence of deep venous thrombosis within the lower extremities. Cameron Bassett MD Chest X-Ray 11/21/16 0000 Signed Impressions: Service Date/Time: Monday, November 21, 2016 10:23 - CONCLUSION: No significant change compared to 11/15/2016. Cameron Bassett MD CT Angiography 11/21/16 0000 Signed Impressions: Service Date/Time: Monday, November 21, 2016 16:20 - CONCLUSION: Deterioration in appearance the lungs with increasing bibasilar clinical changes and mild interstitial edema. Negative for central pulmonary emboli. Goldy Newman MD FACR Head CT 11/12/16 0000 Signed Impressions: Service Date/Time: Saturday, November 12, 2016 15:34 - CONCLUSION: Negative for an acute process. Goldy Newman MD FACR Renal Ultrasound 11/11/16 0000 Signed Impressions: Service Date/Time: Friday, November 11, 2016 15:54 - CONCLUSION: Unremarkable renal ultrasound. There is no hydronephrosis. Goldy Newman MD FACR Abdomen/Pelvis CT 11/10/16 0000 Signed Impressions: Service Date/Time: Thursday, November 10, 2016 11:41 - CONCLUSION: I don't see an abscess or free fluid to suggest an exacerbation of Crohn's disease. There is no asymmetrical bowel dilatation. Goldy Newman MD FACR Objective Remarks AAOx3, nad lying in bed Very warm skin S1S2 RRR, no MRG + 1 edema of BL lower extremities with RLE slightly bigger than the left abdmen soft, non tender, non distended Medications and IVs Current Medications Medications (Trade) Dose Ordered Sig/[place] Route Start Time Stop Time Status Last Admin (NS Flush) 2 ml UNSCH PRN IV FLUSH 11/09/16 13:30 (NS Flush) 2 ml BID IV FLUSH 11/09/16 21:00 11/22/16 08:42 (Narcan Inj) 0.4 mg UNSCH PRN IV 11/09/16 13:30 (Senokot) 17.2 mg Q12H PRN PO 11/09/16 13:30 11/20/16 16:41 (Protonix) 20 mg DAILY PO 11/10/16 09:00 11/22/16 06:50 (Benadryl) 25 mg Q6H PRN PO 11/09/16 16:15 11/21/16 20:44 (Tylenol) 650 mg Q4H PRN PO 11/09/16 22:30 11/22/16 11:24 (Zofran Inj) 4 mg Q6HR PRN IV PUSH 11/09/16 23:30 11/22/16 08:42 (Synthroid) 112 mcg MoWeFr@0600 PO 11/12/16 07:30 11/21/16 05:48 (Synthroid) 25 mcg MoWeFr@0600 PO 11/12/16 07:30 11/21/16 05:48 (Synthroid) 125 mcg SuTuThSa@0600 PO 11/13/16 06:00 11/22/16 06:48 (Milk Of Magnesia Liq) 30 ml DAILY PRN PO 11/18/16 10:15 (Duoneb Neb) 1 ampule Q4HR NEB PRN NEB 11/20/16 12:30 Piperacillin Sod/ Tazobactam Sod 100 ml @ 200 mls/hr Q8H IV 11/21/16 16:00 11/22/16 08:42 Pharmacy Profile Note 0 ml @ 0 mls/hr UNSCH OTHER 11/22/16 09:15 Miscellaneous Information SPECIFIC LAB TO BE DRAWN: VANCO RANDOM DATE TO... ONCE ONCE .XX 11/22/16 18:00 11/22/16 18:01 Potassium Chloride/Sodium Chloride 1,000 ml @ 100 mls/hr Q10H IV 11/22/16 13:15 Magnesium Sulfate/ Dextrose 100 ml @ 100 mls/hr Q1H IV 11/22/16 13:30 11/22/16 15:29 11/22/16 14:09 Urinary Catheter: No Vascular Central Line Catheter: No A/P Problem List: (1) Viral syndrome ICD Code: B34.9 - Viral infection, unspecified (2) Hyponatremia ICD Code: E87.1 - Hypo-osmolality and hyponatremia Status: Acute (3) Acute kidney injury ICD Code: N17.9 - Acute kidney failure, unspecified Status: Acute (4) Hypotension ICD Code: I95.9 - Hypotension, unspecified (5) Metabolic acidosis ICD Code: E87.2 - Acidosis (6) Thrombocytopenia ICD Code: D69.6 - Thrombocytopenia, unspecified (7) Viral pneumonitis ICD Code: J12.9 - Viral pneumonia, unspecified (8) Fluid overload ICD Code: E87.70 - Fluid overload, unspecified (9) Hypokalemia ICD Code: E87.6 - Hypokalemia Status: Acute (10) Sepsis ICD Code: A41.9 - Sepsis, unspecified organism (11) Pneumonia ICD Code: J18.9 - Pneumonia, unspecified organism Assessment and Plan 76-year-old female Sepsis Due to HCAP. CT of the chest with bilateral bibasilar clinical changes, more on the left than on the right. Suspect hospital-acquired pneumonia. Continue broad-spectrum IV antibiotics with IV vancomycin and IV Zosyn. I will give IV fluid boluses with normal saline and start on maintenance fluid with normal saline as well. HCAP As above Acute kidney failure/Possible ATN - resolved Continue to monitor renal function Nephrology following Pneumonia versus virally pneumonitis versus fluid overload Status post 7 days of Levaquin. Repeat chest x-ray 11/15 showed improved aeration. Infectious disease consultation appreciated. Evidence to point towards lateral infection includes lack of leukocytosis on admission, thrombocytopenia. Status post IV Lasix 40 mg IV push 11/19 Does not require oxygen per walk test. 11/21 Patient meets sepsis criteria with tachycardia, bandemia of 14% with toxic granulations and leukocytosis on 11/19 and 11/20 as well as low grade fever. Check urinalysis, will obtain blood cultures. Chest x-ray ordered and showed no significant change compared to 11/15 with the patient had some pulmonary congestion and improving right upper lobe airspace disease. I will order a CTA of the chest to r/o PE and to better asses abnormalities on on chest x-ray. 11/22 bandemia decreasing and now 10%. UA negative. CT of the chest ruled out PE, however there are some described some deterioration of the lungs with increasing bibasilar bilateral clinical changes. As per my own reading seems to be some development of bibasilar bilateral infiltrates especially in the left lower lung field. Continue IV Zosyn and IV vancomycin. Blood cultures negative 1 Possible mild Exacerbation of Crohn's disease, Diarrhea - now resolved Improved Follow clinically Status post course of steroids Thrombocytopenia - likely due to vial illness, improving Platelets trending down. 140 - 130 - 113. No evidence of active bleeding.Continue to monitor CBC. 11/22 platelet count down to 12 K, no signs of active bleeding observed. I will repeat platelet count and if less than 15 K I will transfuse 1 unit of platelets. I will also consult hematology. Patient currently not on heparin and upper review of medications given during this admission, the patient has not received heparin. Thrombocytopenia possibly secondary to sepsis, will also DC vancomycin since this could also provoke some thrombocytopenia. Metabolic acidosis-resolved Fluid overload with ankle edema Status post 40 mg IV Lasix 1 Add BALJIT hollis - patient requests extra-large which we do not have here apparently Hyponatremia Resolved Continue to monitor sodium levels Hypotension /4 Will give IV fluid boluses. Due to sepsis. Lactic acid ordered and normal. Continue to monitor vital signs. Hypokalemia secondary to diuretics Replete potassium today recheck BMP in the morning DVT prophylaxis SCDs Heparin Discharge Planning Pending clinical improvement. not ready for DC. Problem Qualifiers (1) Pneumonia: Teo Paredes MD Nov 22, 2016 15:46
[2016-11-22] MEDS ORDERED: PROMETHAZINE INJ 25 MG/ML VIAL IM ONE (16:15)
--- NOTE | 2016-11-22 17:15 | MB ---
cc: SUSSY BRAUN M.D. DATE OF CONSULTATION: 11/22/2016 ATTENDING PHYSICIAN: Dr. Perkins. REASON FOR CONSULTATION: Hematologic consult to render opinion regarding patient with worsening thrombocytopenia. HISTORY OF PRESENT ILLNESS The patient is a 76-year-old female admitted to the hospital November 09 with complaint of increased weakness which was going on for about a week prior to presentation. She was found to have tachycardia and hypotension when she first presented. She noted to have acute renal failure and dehydration. She also been running low grade temperature. She was thought to a viral infection and sepsis syndrome. She also had metabolic acidosis and electrolyte abnormality. She was treated with various antibiotic during this hospital stay, blood culture has been negative. Over the last 2 weeks her platelet count has been fluctuating at one point it trended down to 28,000 but then went back up to more than 100,000 since yesterday platelet count dropped from 113,000 to 12,000 today. Hematology was consulted for evaluation. She also had fluctuating white blood cell count and some blasts were reported on the peripheral smear. Her hemoglobin however has been stable around 10. She does complain of generalized weakness and fatigue. She has not felt better over last 2 weeks. She is frustrated. She did travel to [place] on a cruise in March of this year. She has nausea but no vomiting. She had some chest discomfort but no palpitation. Denies any dysuria, hematuria. She had intermittent diarrhea due to her Crohn's disease. Denies any melena, hematochezia. Denies any bone pain. Denies any rash or pruritus. Denies any sinus congestion. PAST MEDICAL HISTORY: Past medical history of thyroid cancer treated 30 years ago. Crohn's disease. PAST SURGICAL HISTORY Thyroidectomy cholecystectomy bilateral oophorectomy. Hemorrhoidectomy. FAMILY HISTORY No apparent disease. She has five siblings all healthy. She has four children all healthy. No hematology disorder. FAMILY HISTORY AND SOCIAL HISTORY No tobacco or alcohol use. She is retired nurse. ALLERGIES NICKEL CODEINE ERYTHROMYCIN. CURRENT MEDICATIONS 1. Zosyn. 2. Vancomycin. 3. DuoNeb's 4. Levothyroxine 5. Pantoprozole. REVIEW OF SYSTEMS CONSTITUTIONAL: As above. EYES: Denies any blurry vision, double vision. ENT: No Mouth sores or voice changes. CARDIOVASCULAR SYSTEM: As above. RESPIRATORY: Denies shortness of breath or cough. GI: As above. : No dysuria, hematuria. MUSCULOSKELETAL: Negative. HEMATOLOGY: Hematology as above. ENDOCRINE: Negative DERMATOLOGY: Negative. PSYCHIATRIC: Negative. NEUROLOGIC: Negative. PHYSICAL EXAMINATION VITAL SIGNS: Temperature 100.2, blood pressure 92/59, O2 saturation 94%. IN GENERAL: She is alert and oriented times three. In no acute distress. HEAD, EYES, EARS, NOSE, AND THROAT: Atraumatic, cephalic. Pupils equal, round and light. Extraocular muscles intact, no scleral icterus. Oropharynx dry mucosa. No lesion or thrush or mucositis. NECK: No thyromegaly or palpable masses. LYMPHATICS: No palpable cervical, clavicular, axillary, lymph nodes CARDIOVASCULAR SYSTEM: Regular S1-S2 no murmur. Slightly tachycardiac. ABDOMEN: soft, nontender. I could not palpate liver or spleen. EXTREMITIES: No cyanosis, clubbing or edema. BACK: No paravertebral tenderness. SKIN: No rash or petechiae. NEUROLOGIC: Exam generalized weakness. No focal deficit. LABORATORY FINDINGS: Laboratory data reviewed ASSESSMENT: 1. Thrombocytopenia, she has acute drop in the platelet count today. When she first presented her platelet count was 140,000, at one point it dropped down to 28,000 but then rebound back to above 100,000. Yesterday her platelet count was 113,000 but this morning it went down to 12,000. Reviewed her peripheral smear which showed overall decreased platelet count but the actual platelet count may be higher than the reported number of 12,000. Some of the platelets are enlarged suggesting platelets destruction or sequestration. The differential diagnosis including antibiotic induced thrombocytopenia, idiopathic thrombocytopenia, heparin- induced thrombocytopenia. TTP or primary bone marrow disorder. I have reviewed her peripheral smear which does not show significant schistocyte and I think it is less likely to be a TTP. She was treated with various antibiotics since admission including ceftriaxone aztreonam, levaquin, Vancomycin and most recently Zosyn. The antibiotic may have caused an acute drop of the platelet count, she also had received heparin when she first came in and last dose was about a week ago and will need to rule out heparin-induced thrombocytopenia. There was some a peripheral blasts reported but I do not see significant blasts on her peripheral smear although she has significant bandemia and toxic granulation suggesting possible infection and reactive process. We will also check DIC panel. I am going to check with Dr. Perkins to see if we can hold her antibiotic for now to see if that is causing her drop in platelet count. We are also going to check Lactic acid dehydrogenase, if it is not significantly elevated, we can give her platelet transfusion. If she has no improvement. I will consider bone marrow biopsy for further evaluation. 2. Mild leukocytosis, peripheral smear showed left shifted granulocyte with increased bandemia. There was a few myelocyte and metamyelocyte. I do not see significant blasts. There is some toxic granulation, this all appeared to be leukemoid reaction, continue to monitor for now. 3. Anemia. Hemoglobin is stable at around 10. She does have microcytosis. I will check iron and vitamin study. 4. Constitutional symptoms. She has low grade temperature. She has not been feeling well for 2 weeks. She may have some underlying occult infection. Blood culture so far have been negative. I will consult infectious disease for further evaluation and to see if she needs to continue with the antibiotics. 5. Crohn's disease. She had intermittent diarrhea but has improved. RECOMMENDATIONS 1. Proceed with laboratory evaluation outlined as above. 2. Review her peripheral smear. 3. Hold the Zosyn if it is okay with Dr. Perkins. 4. Consult infectious disease. 5. Consider bone marrow biopsy if her blood count does not improve. I will consider treating her for ITP with steroids and possible IVIG if her platelet count continues to trend lower and if workup is unremarkable. I have called and left a message for Dr. Perkins to call me back. Thank you Dr. Perkins for asking me to see your patient. MD CIRILO Colmenares/betty /4:26 PM /4:46 PM JOSE
[2016-11-22 17:42] LABS: WESTERGREN SEDIMENTATION RATE 22 mm/hr (0-30)
[2016-11-22] MEDS ORDERED: PHARMACY ORDERED LAB ONE (18:00)
--- NOTE | 2016-11-22 18:37 | HHI.PR ---
Addendum to Inpatient Note Addendum Reason: Additional Documentation Additional Information Discussed the case over the phone with Dr. Farnsworth from hematology. Dr. Farnsworth recommended ID consultation. I explained to him that infectious disease is following the patient. Called and discussed the case with Dr. Kay today who recommended continuation of IV vancomycin and IV Zosyn. Dr. Farnsworth is concerned that, cytopenia could be reactive to IV antibiotics. Following recommendations from ID, I will continue to give IV vancomycin for now. Hematology also recommended transferring the patient to the [facility] for a possible bone marrow biopsy. I will transfer the patient to the intensive care unit at the [facility] in [place]. Teo Paredes MD Nov 22, 2016 18:37
[2016-11-22] MEDS: oxyCODONE/ACETAMINOPHEN 5 MG/325 MG TAB PO PRN ×2 (18:42→21:18)
[2016-11-22] MEDS: NS + KCL 40 MEQ INJ 1,000 ML IV SCH ×2 (18:42→21:17)
[2016-11-22 19:54] LABS: REVIEW FLAG FINAL
[2016-11-22 20:45] LABS: FERRITIN 1433 NG/ML (8-252); LDH SERUM 338 U/L (84-246); TRANSFERRIN IRON PROFILE 113 MG/DL (200-360)
[2016-11-22] MEDS ORDERED: VANCOMYCIN INJ 1,000 MG in SODIUM CHLOR 0.9% 250 ML INJ 250 ML IV SCH (21:00)
[2016-11-22] MEDS ORDERED: CHLORHEXIDINE GLUCONATE 2 % 1 PACK (2 CLOTHS)(extra cloths) TOPICAL PRN (21:30)
[2016-11-23] VITALS (10 sets, daily range): BP systolic 100–145; BP diastolic 53–91; PULSE 75–109; RESP 12–22; TEMP 96.5–98.9; O2SAT 92–99
[2016-11-23] MEDS: oxyCODONE/ACETAMINOPHEN 5 MG/325 MG TAB PO PRN ×5 (03:55→15:15)
[2016-11-23] MEDS: CHLORHEXIDINE GLUCONATE 2 % 1 PACK (2 CLOTHS)(taper/protocol) TOPICAL SCH (04:00)
[2016-11-23] MEDS: ONDANSETRON HCL 4 MG/2 ML VIAL IV PUSH PRN (04:01)
[2016-11-23] MEDS: LEVOTHYROXINE SODIUM 25 MCG TAB PO SCH (05:36)
[2016-11-23] MEDS: LEVOTHYROXINE SODIUM 112 MCG TAB PO SCH (05:36)
[2016-11-23] MEDS ORDERED: MORPHINE SULFATE 4 MG/ML INJ IV PUSH PRN (05:45)
[2016-11-23 06:38] LABS: HEMATOCRIT 25.9 % (35.0-46.0); MEAN CORPUSCULAR HEMOGLOBIN 26.4 PG (27.0-34.0); MEAN CORPUSCULAR HGB CONC 33.4 % (32.0-36.0); PLATELET COUNT 48 TH/MM3 (150-450); RED BLOOD COUNT 3.28 MIL/MM3 (4.00-5.30); WHITE BLOOD COUNT 10.5 TH/MM3 (4.0-11.0)
[2016-11-23 06:45] LABS: HEMO FLAGS AUTO DIFF
[2016-11-23 07:03] LABS: ANION GAP 9 MEQ/L (5-15); AST (GOT) 13 U/L (15-37); BICARBONATE 21.9 MEQ/L (21.0-32.0); BLOOD UREA NITROGEN 16 MG/DL (7-18); CHLORIDE 103 MEQ/L (98-107); GLOMERULAR FILTRATION RATE 74 ML/MIN (>89); MAGNESIUM 1.8 MG/DL (1.5-2.5); POTASSIUM 3.4 MEQ/L (3.5-5.1); SODIUM (NA) 134 MEQ/L (136-145)
[2016-11-23 07:04] LABS: ALT (GPT) 15 U/L (10-53)
[2016-11-23 07:06] LABS: ALKALINE PHOSPHATASE 44 U/L (45-117); TOTAL BILIRUBIN ADULT 0.4 MG/DL (0.2-1.0)
[2016-11-23 08:21] LABS: BANDS 6 % (0-6); BASOPHILS 1 % (0-2); BLASTS 9 % (0-0); EOSINOPHILS 1 % (0-4); MYELOCYTES 1 % (0-0); NEUTROPHIL # MANUAL DIFF 5.9 TH/MM3 (1.8-7.7); POLYS (SEG NEUTROPHILS) 49 % (16-70); WBC DIFF SAMPLE 100
[2016-11-23 08:23] LABS: PLATELET ESTIMATE SMEAR LOW (NORMAL); PLATELET MORPHOLOGY ENLARGED (NORMAL); SCAN/DIFF FINAL DIFF MANUAL
[2016-11-23 08:24] LABS: ACANTHOCYTES OCC (NORMAL); KERATOCYTES OCC (NORMAL); OVALOCYTES 1+ (NORMAL)
[2016-11-23] MEDS ORDERED: POTASSIUM CHLORIDE 20 MEQ PWD PACKET PO ONE (08:30)
[2016-11-23] MEDS ORDERED: HYDROmorphone HCL PF 1 MG/ML VIAL IV PUSH ONE (09:00)
[2016-11-23] MEDS: PANTOPRAZOLE SOD 20 MG DELAYED RELEASE TAB PO SCH (09:00)
[2016-11-23] MEDS ORDERED: HYDROmorphone HCL PF 1 MG/ML VIAL IV PUSH PRN (09:00)
[2016-11-23] MEDS: SODIUM CHLORIDE 0.9% FLUSH 10 ML FLUSH IV FLUSH SCH ×2 (09:00→21:00)
[2016-11-23] MEDS: PIPERACIL-TAZO 4.5 GM PREMIX 100 ML IV SCH ×3 (10:03→15:15)
[2016-11-23] MEDS: NS + KCL 40 MEQ INJ 1,000 ML IV SCH ×2 (10:04→17:46)
--- NOTE | 2016-11-23 10:05 | HHI.PR ---
Subjective Remarks Potassium is little low this morning at 3.4. Replacement provided. Platelets are 48, this is status post transfusion. White blood cell count is 10.5. Hemoglobin is at 8.7. Creatinine is at 0.76. D-dimer and fibrinogen are elevated. No fever. Today patient complains of bilateral lower back and pelvic pain. Bone marrow biopsy planned. Possible ITP. Objective Vital Signs Date Time Temp Pulse Resp B/P (MAP) Pulse Ox O2 Delivery O2 Flow Rate FiO2 11/23/16 06:58 15 11/23/16 06:46 98.1 11/23/16 06:28 13 11/23/16 04:00 86 11/23/16 04:00 98.9 86 22 145/65 (91) 97 11/23/16 02:00 91 11/23/16 00:00 98.1 97 19 100/53 (69) 97 11/23/16 00:00 100 Simple Mask 6.00 11/23/16 00:00 97 11/22/16 22:00 91 11/22/16 21:07 22 11/22/16 20:50 95 Nasal Cannula 6.00 11/22/16 20:50 99.4 91 20 97/53 (68) 92 11/22/16 16:00 98.1 120 24 120/77 (91) 94 11/22/16 12:00 100.2 120 20 92/59 (70) 94 I/O 11/22/16 11/22/16 11/22/16 11/23/16 11/23/16 11/23/16 07:00 15:00 23:00 07:00 15:00 23:00 Intake Total 490 ml 350 ml 1025 ml 1080 ml Balance 490 ml 350 ml 1025 ml 1080 ml Intake Oral 240 ml 480 ml IV Total 250 ml 350 ml 1025 ml 100 ml Platelets 470 ml Blood Product IV Normal Saline Flush 30 ml # Voids 4 2 # Bowel Movements 0 Result Diagram: 11/23/1651911/23/16519 Objective Remarks GENERAL: NAD, A&Ox3 HEAD: Normocephalic. NECK: Supple, trachea midline. No lymphadenopathy. EYES: No scleral icterus. No injection or drainage. CARDIOVASCULAR: Regular rate and rhythm without murmurs, gallops, or rubs. RESPIRATORY: Breath sounds equal bilaterally. No accessory muscle use. GASTROINTESTINAL: Abdomen soft, non-tender, nondistended. MUSCULOSKELETAL: No cyanosis, or edema. SKIN: Warm and dry. Petechia forearms. NEURO: No focal neurological deficitis. A/P Problem List: (1) Pneumonia ICD Code: J18.9 - Pneumonia, unspecified organism (2) Hypotension ICD Code: I95.9 - Hypotension, unspecified (3) Acute kidney injury ICD Code: N17.9 - Acute kidney failure, unspecified Status: Acute (4) Hyponatremia ICD Code: E87.1 - Hypo-osmolality and hyponatremia Status: Acute (5) Hypokalemia ICD Code: E87.6 - Hypokalemia Status: Acute (6) Dehydration ICD Code: E86.0 - Dehydration Status: Acute Assessment and Plan Assessment and plan 76-year-old female admitted with acute kidney injury and dehydration and Crohn' s disease flareup with diarrhea and abdominal pain. Recurrent thrombocytopenia. Possible ITP. Bone marrow biopsy plan. Continue steroids. Thrombocytopenia Recurrent (had occurred previously during this admit) Hematology following Continue steroids Bone marrow biopsy planned Patient is not on heparin Avoid blood thinners Exacerbation of Crohn's disease Diarrhea Clinically improved Continue steroids Follow for further improvement Acute kidney failure Possible ATN Acute kidney injury resolved Continue to monitor renal function Nephrology following Pneumonia Completed Levaquin Follow clinical symptoms. No white blood cell count Continue systemic steroids Possible sepsis Vancomycin ID following Hyponatremia Resolved Continue to monitor sodium levels Hypotension Monitor blood pressures Pressors if needed DVT prophylaxis SCDs Problem Qualifiers (1) Pneumonia: Gallito Reed MD Nov 23, 2016 10:04
--- NOTE | 2016-11-23 11:51 | PD.ONC.PN ---
Subjective Subjective Remarks Afebrile overnight. Patient resting in bed in nad. Waiting to go down for bone marrow biopsy. No bleeding. Objective Data Date Time Temp Pulse Resp B/P (MAP) Pulse Ox O2 Delivery O2 Flow Rate FiO2 11/23/16 10:59 93 Nasal Cannula 6.00 11/23/16 06:58 15 11/23/16 06:46 98.1 11/23/16 06:28 13 11/23/16 04:00 86 11/23/16 04:00 98.9 86 22 145/65 (91) 97 11/23/16 02:00 91 11/23/16 00:00 98.1 97 19 100/53 (69) 97 11/23/16 00:00 100 Simple Mask 6.00 11/23/16 00:00 97 11/22/16 22:00 91 11/22/16 21:07 22 11/22/16 20:50 95 Nasal Cannula 6.00 11/22/16 20:50 99.4 91 20 97/53 (68) 92 11/22/16 16:00 98.1 120 24 120/77 (91) 94 11/22/16 12:00 100.2 120 20 92/59 (70) 94 11/23/16 11/23/16 11/23/16 07:00 15:00 23:00 Intake Total 1080 ml Balance 1080 ml Result Diagram: 11/23/16 0520 11/23/16 0520 Laboratory Results Laboratory Tests Test 11/22/16 14:20 11/22/16 16:35 11/22/16 16:40 11/22/16 21:00 Platelet Count 6 TH/MM3 Erythrocyte Sedimentation Rate 22 mm/hr Reticulocyte Count 1.0 % Absolute Reticulocyte Count 36.6 MIL/L Iron Level 22 MCG/DL Total Iron Binding Capacity 158 MCG/DL Percent Iron Saturation 13.9 % Ferritin 1433 NG/ML Lactate Dehydrogenase 338 U/L Vitamin B12 Level 1194 PG/ML Folate 4.1 NG/ML Random Vancomycin Level 10.5 COMMENT Fibrinogen 449 mg/dL D-Dimer Quantitative (PE/DVT) 7.38 MG/L FEU Nasal Screen MRSA (PCR) MRSA NOT DETECTED Test 11/23/16 05:20 White Blood Count 10.5 TH/MM3 Red Blood Count 3.28 MIL/MM3 Hemoglobin 8.7 GM/DL Hematocrit 25.9 % Mean Corpuscular Volume 79.0 FL Mean Corpuscular Hemoglobin 26.4 PG Mean Corpuscular Hemoglobin Concent 33.4 % Red Cell Distribution Width 20.0 % Platelet Count 48 TH/MM3 Mean Platelet Volume 8.8 FL CBC Comment AUTO DIFF Differential Total Cells Counted 100 Neutrophils % (Manual) 49 % Band Neutrophils % 6 % Lymphocytes % 18 % Monocytes % 15 % Eosinophils % 1 % Basophils % 1 % Neutrophils # (Manual) 5.9 TH/MM3 Myelocytes 1 % Differential Comment FINAL DIFF MANUAL Blastocytes 9 % Platelet Estimate LOW Platelet Morphology Comment ENLARGED Ovalocytes 1+ Acanthocytes OCC Keratocytes OCC Blood Smear Pathologist Review Blood Urea Nitrogen 16 MG/DL Creatinine 0.76 MG/DL Random Glucose 70 MG/DL Total Protein 4.9 GM/DL Albumin 1.8 GM/DL Calcium Level 7.9 MG/DL Phosphorus Level 3.2 MG/DL Magnesium Level 1.8 MG/DL Alkaline Phosphatase 44 U/L Aspartate Amino Transf (AST/SGOT) 13 U/L Alanine Aminotransferase (ALT/SGPT) 15 U/L Total Bilirubin 0.4 MG/DL Sodium Level 134 MEQ/L Potassium Level 3.4 MEQ/L Chloride Level 103 MEQ/L Carbon Dioxide Level 21.9 MEQ/L Anion Gap 9 MEQ/L Estimat Glomerular Filtration Rate 74 ML/MIN Culture Results Microbiology Date/Time Source Procedure Growth Status 11/21/16 14:19 Blood Peripheral Aerobic Blood Culture - Preliminary NO GROWTH IN 2 DAYS Resulted 11/21/16 14:19 Blood Peripheral Anaerobic Blood Culture - Preliminary NO GROWTH IN 2 DAYS Resulted 11/21/16 14:11 Blood Peripheral Aerobic Blood Culture - Preliminary NO GROWTH IN 2 DAYS Resulted 11/21/16 14:11 Blood Peripheral Anaerobic Blood Culture - Preliminary NO GROWTH IN 2 DAYS Resulted Administered Medications Medications (Trade) Dose Ordered Sig/Suyapa Route PRN Reason Start Time Stop Time Status Last Admin Dose Admin Sodium Chloride (NS Flush) 2 ml BID IV FLUSH 11/09/16 21:00 11/22/16 21:00 Sennosides (Senokot) 17.2 mg Q12H PRN PO MODERATE - SEVERE CONSTIPATION 11/09/16 13:30 11/20/16 16:41 Pantoprazole Sodium (Protonix) 20 mg DAILY PO 11/10/16 09:00 11/23/16 09:00 Diphenhydramine HCl (Benadryl) 25 mg Q6H PRN PO ITCHING 11/09/16 16:15 11/21/16 20:44 Acetaminophen (Tylenol) 650 mg Q4H PRN PO HEADACHE 11/09/16 22:30 11/22/16 11:24 Ondansetron HCl (Zofran Inj) 4 mg Q6HR PRN IV PUSH nausea 11/09/16 23:30 11/23/16 04:01 Levothyroxine Sodium (Synthroid) 112 mcg MoWeFr@0600 PO 11/12/16 07:30 11/23/16 05:36 Levothyroxine Sodium (Synthroid) 25 mcg MoWeFr@0600 PO 11/12/16 07:30 11/23/16 05:36 Levothyroxine Sodium (Synthroid) 125 mcg SuTuThSa@0600 PO 11/13/16 06:00 11/22/16 06:48 Piperacillin Sod/ Tazobactam Sod 100 ml @ 200 mls/hr Q8H IV 11/21/16 16:00 11/23/16 10:03 Potassium Chloride/Sodium Chloride 1,000 ml @ 100 mls/hr Q10H IV 11/22/16 13:15 11/23/16 10:04 Acetaminophen (Tylenol) 650 mg Q4H PRN PO SEE LABEL COMMENTS 11/22/16 15:30 11/22/16 16:40 Oxycodone/ Acetaminophen (Percocet 5-325 Mg) 1 tab Q4H PRN PO PAIN SCALE 1 TO 4 11/22/16 18:00 11/23/16 05:36 Oxycodone/ Acetaminophen (Percocet 5-325 Mg) 2 tab Q4H PRN PO PAIN SCALE 5 TO 10 11/22/16 18:00 11/23/16 10:18 Miscellaneous Information Patient in critical care unit? Ass... [id number] .XX 11/22/16 21:30 11/22/16 21:30 Objective Remarks GENERAL: Elderly female upright in bed in nad. SKIN: Warm and dry. occasional bruise on extremities and abdomen. HEAD: Normocephalic. EYES: No injection or drainage. NECK: Supple, trachea midline. CARDIOVASCULAR: +S1/S2, tachy RESPIRATORY: anterior galindo clear. On O2 via NC GASTROINTESTINAL: Abdomen soft, non-tender, nondistended. EXTREMITIES: No cyanosis NEUROLOGICAL: awake and alert, normal speech. Assessment/Plan Problem List: (1) Thrombocytopenia ICD Codes: D69.6 - Thrombocytopenia, unspecified Plan: --some of platelets are enlarged suggesting platelets destruction or sequestration. --differential diagnosis including antibiotic induced thrombocytopenia, idiopathic thrombocytopenia, heparin-induced thrombocytopenia. TTP or primary bone marrow disorder. --peripheral smear does not show significant schistocyte--> less likely to be a TTP. -- antibiotic may have caused an acute drop of the platelet count --HIT pending (2) Microcytic anemia ICD Codes: D50.9 - Iron deficiency anemia, unspecified Plan: ++microcytosis. --iron studies show elevated ferritin, low TIBC, low serum iron-->this is more consistent with anemia of chronic disease/inflammation --B12/folate showed no deficiency (3) Leukocytosis ICD Codes: D72.829 - Elevated white blood cell count, unspecified Status: Resolved Plan: --WBC now within normal limits --also has had low grade temperatures --BC no growth --ID consulted Assessment 76y/o female admitted with weakness, ARF, dehydration, metabolic acidosis. Hematology consulted for worsening thrombocytopenia. history of thyroid cancer treated 30 years ago. Crohn's disease. Thyroidectomy cholecystectomy bilateral oophorectomy. Hemorrhoidectomy. Plan 1. await ID recommendations, Can we Stop antibiotics? 2. CT guided bone marrow biopsy today 3. check DIC panel, monitor fibrinogen and LDH 4. pathologist smear review Attending Statement The exam, history, and the medical decision-making described in the above note were completed with the assistance of the mid-level provider. I reviewed and agree with the findings presented. I attest that I had a [id number] encounter with the patient on the same day, and personally performed and documented my assessment and findings in the medical record. Feels better this morning. Nursing reported hypoxemia last night. Platelet trended up to 48 after transfusion and make it less likely to be ITP. LDH slightly elevated and I doubt she has TTP. other DDX drug induced thrombocytopenia or bone marrow disorder. IR consulted for bone marrow biopsy. Monitor CBC. Milana Chapin Nov 23, 2016 11:51 Nima Mclean MD Nov 23, 2016 15:36
--- NOTE | 2016-11-23 12:59 | HHI.IDPN ---
Subjective Subjective Remarks chart reviewed Events noted Pt's plts went down to 6 K abruptly yday Blast persistently increase in periferal blood SHe had a low grade fever x 1 day, mildl hypoxia and tachycardia Blood clx negative @ 1 day UA neg, CXR with interstitial mild infiltrates Pt was transferred to ICU 2/2 suspected sepsis started on broad spectrum abx afebrile today and is on NC Antibiotics vancomycin zosyn Allergies: Coded Allergies: chloramphenicol (Unverified Allergy, Severe, 11/09/16) codeine (Unverified Allergy, Severe, 11/09/16) erythromycin base (Unverified Allergy, Unknown, 11/09/16) Objective . Vital Signs Date Time Temp Pulse Resp B/P (MAP) Pulse Ox O2 Delivery O2 Flow Rate FiO2 11/23/16 10:59 93 Nasal Cannula 6.00 11/23/16 06:58 15 11/23/16 06:46 98.1 11/23/16 06:28 13 11/23/16 04:00 86 11/23/16 04:00 98.9 86 22 145/65 (91) 97 11/23/16 02:00 91 11/23/16 00:00 98.1 97 19 100/53 (69) 97 11/23/16 00:00 100 Simple Mask 6.00 11/23/16 00:00 97 11/22/16 22:00 91 11/22/16 21:07 22 11/22/16 20:50 95 Nasal Cannula 6.00 11/22/16 20:50 99.4 91 20 97/53 (68) 92 11/22/16 16:00 98.1 120 24 120/77 (91) 94 . Laboratory Tests Test 11/22/16 11:14 11/22/16 14:20 11/22/16 16:35 11/23/16 05:20 White Blood Count 11.9 TH/MM3 10.5 TH/MM3 Red Blood Count 3.93 MIL/MM3 3.28 MIL/MM3 Hemoglobin 10.1 GM/DL 8.7 GM/DL Hematocrit 30.6 % 25.9 % Mean Corpuscular Volume 77.9 FL 79.0 FL Mean Corpuscular Hemoglobin 25.8 PG 26.4 PG Mean Corpuscular Hemoglobin Concent 33.1 % 33.4 % Red Cell Distribution Width 18.5 % 20.0 % Platelet Count 12 TH/MM3 6 TH/MM3 48 TH/MM3 Mean Platelet Volume 8.3 FL 8.8 FL Neutrophils (%) (Auto) 71.6 % Lymphocytes (%) (Auto) 12.5 % Monocytes (%) (Auto) 10.1 % Eosinophils (%) (Auto) 5.3 % Basophils (%) (Auto) 0.5 % Neutrophils # (Auto) 8.5 TH/MM3 Lymphocytes # (Auto) 1.5 TH/MM3 Monocytes # (Auto) 1.2 TH/MM3 Eosinophils # (Auto) 0.6 TH/MM3 Basophils # (Auto) 0.1 TH/MM3 CBC Comment AUTO DIFF AUTO DIFF Differential Total Cells Counted 100 100 Neutrophils % (Manual) 53 % 49 % Band Neutrophils % 10 % 6 % Lymphocytes % 14 % 18 % Monocytes % 3 % 15 % Eosinophils % 6 % 1 % Basophils % 1 % 1 % Neutrophils # (Manual) 7.9 TH/MM3 5.9 TH/MM3 Metamyelocytes 1 % Myelocytes 2 % 1 % Differential Comment FINAL DIFF MANUAL FINAL DIFF MANUAL Blastocytes 10 % 9 % Dohle Bodies PRESENT Platelet Estimate LOW LOW Platelet Morphology Comment ENLARGED ENLARGED Ovalocytes 1+ 1+ Erythrocyte Sedimentation Rate 22 mm/hr Reticulocyte Count 1.0 % Absolute Reticulocyte Count 36.6 MIL/L Acanthocytes OCC Keratocytes OCC Blood Smear Pathologist Review Laboratory Tests Test 11/22/16 11:14 11/22/16 16:35 11/23/16 05:20 Blood Urea Nitrogen 18 MG/DL 16 MG/DL Creatinine 1.00 MG/DL 0.76 MG/DL Random Glucose 75 MG/DL 70 MG/DL Total Protein 5.5 GM/DL 4.9 GM/DL Albumin 2.0 GM/DL 1.8 GM/DL Calcium Level 7.5 MG/DL 7.9 MG/DL Phosphorus Level 3.2 MG/DL 3.2 MG/DL Magnesium Level 1.3 MG/DL 1.8 MG/DL Alkaline Phosphatase 43 U/L 44 U/L Aspartate Amino Transf (AST/SGOT) 16 U/L 13 U/L Alanine Aminotransferase (ALT/SGPT) 17 U/L 15 U/L Total Bilirubin 0.7 MG/DL 0.4 MG/DL Sodium Level 136 MEQ/L 134 MEQ/L Potassium Level 3.3 MEQ/L 3.4 MEQ/L Chloride Level 103 MEQ/L 103 MEQ/L Carbon Dioxide Level 23.5 MEQ/L 21.9 MEQ/L Anion Gap 10 MEQ/L 9 MEQ/L Estimat Glomerular Filtration Rate 54 ML/MIN 74 ML/MIN Lactic Acid Level 1.3 mmol/L Iron Level 22 MCG/DL Total Iron Binding Capacity 158 MCG/DL Percent Iron Saturation 13.9 % Ferritin 1433 NG/ML Lactate Dehydrogenase 338 U/L Vitamin B12 Level 1194 PG/ML Folate 4.1 NG/ML Microbiology Date/Time Source Procedure Growth Status 11/21/16 14:19 Blood Peripheral Aerobic Blood Culture - Preliminary NO GROWTH IN 2 DAYS Resulted 11/21/16 14:19 Blood Peripheral Anaerobic Blood Culture - Preliminary NO GROWTH IN 2 DAYS Resulted 11/21/16 14:11 Blood Peripheral Aerobic Blood Culture - Preliminary NO GROWTH IN 2 DAYS Resulted 11/21/16 14:11 Blood Peripheral Anaerobic Blood Culture - Preliminary NO GROWTH IN 2 DAYS Resulted Imaging Last Impressions Lower Extremity Ultrasound 11/21/16 0000 Signed Impressions: Service Date/Time: Monday, November 21, 2016 14:24 - CONCLUSION: No evidence of deep venous thrombosis within the lower extremities. Cameron Bassett MD Chest X-Ray 11/21/16 0000 Signed Impressions: Service Date/Time: Monday, November 21, 2016 10:23 - CONCLUSION: No significant change compared to 11/15/2016. Cameron Bassett MD CT Angiography 11/21/16 0000 Signed Impressions: Service Date/Time: Monday, November 21, 2016 16:20 - CONCLUSION: Deterioration in appearance the lungs with increasing bibasilar clinical changes and mild interstitial edema. Negative for central pulmonary emboli. Goldy Newman MD FACR Head CT 11/12/16 0000 Signed Impressions: Service Date/Time: Saturday, November 12, 2016 15:34 - CONCLUSION: Negative for an acute process. Goldy Newman MD FACR Renal Ultrasound 11/11/16 0000 Signed Impressions: Service Date/Time: Friday, November 11, 2016 15:54 - CONCLUSION: Unremarkable renal ultrasound. There is no hydronephrosis. Goldy Newman MD FACR Abdomen/Pelvis CT 11/10/16 0000 Signed Impressions: Service Date/Time: Thursday, November 10, 2016 11:41 - CONCLUSION: I don't see an abscess or free fluid to suggest an exacerbation of Crohn's disease. There is no asymmetrical bowel dilatation. Goldy Newman MD FACR Physical Exam GENERAL: This is in NAD SKIN: No rashes, + large BUE ecchymoses especially large in L foreatrm at attempted IV site . Cool and dry. HEAD: Atraumatic. Normocephalic. No temporal or scalp tenderness. EYES: Pupils equal round and reactive. Extraocular motions intact. No scleral icterus. No injection or drainage. ENT: Nose without bleeding, purulent drainage or septal hematoma. oral mucosae moist NECK: Trachea midline. No JVD or lymphadenopathy. Supple, nontender, no meningeal signs. CARDIOVASCULAR: Regular rate and rhythm without murmurs, gallops, or rubs. RESPIRATORY: Clear to auscultation. Breath sounds decreased bilaterally. No wheezes, or rhonchi. GASTROINTESTINAL: Abdomen soft, non-tender, nondistended. No hepato-splenomegaly , or palpable masses. No guarding. : no suprapubic tenderness to palpation MUSCULOSKELETAL: Extremities without clubbing, cyanosis, or edema. No joint tenderness, effusion, or edema noted. Left calf tenderness. NEUROLOGICAL: Awake and alert. Cranial nerves II through XII intact. Motor and sensory grossly within normal limits. 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 sepsis Interstitial infilatrates ARF - resolved cont zaida honeycutt for now plan to dc empiric abx if remains afebrile, with negative blood clx and no other e/o infection agree with plan for bone marrow tap I fu WBC, plts dw Dr Gregorio cross RN dw pt, @ b/s Radha Kay MD Nov 23, 2016 12:59
[2016-11-23 15:36] LABS: HEPARIN AB OD 0.075 O.D. (0.000-0.300); HEPARIN INDUCED PLATELET AB NEGATIVE (NEGATIVE)
[2016-11-23] MEDS ORDERED: LIDOCAINE HCL 1% 20 ML VIAL ONE (15:40)
[2016-11-23] MEDS ORDERED: MIDAZOLAM HCL 2 MG/2 ML VIAL ONE (15:53)
--- NOTE | 2016-11-23 17:01 | RADRPT ---
EXAM DATE/TIME: 11/23/2016 16:22 [facility] COMPARISON: No previous studies available for comparison. INDICATIONS : Thrombocytopenia. SEDATION TIME: 15 minutes BIOPSY SITE: Right iliac MEDICATION(S): 1.) 0.5 mg midazolam (Versed) IV 2.) 50 mcg fentanyl (Sublimaze) IV DEVICE(S): 1.) 11 gauge Bone biopsy needle 2.) Biopsy gun MEDICAL HISTORY : Thrombocytopenia. SURGICAL HISTORY : None. ENCOUNTER: Initial ACUITY: 1 day PAIN SCORE: 0/10 LOCATION: Right iliac A total of one core specimen(s) were obtained and sent to the laboratory for pathologic evaluation. PROCEDURE: 1. CT guided bone marrow biopsy. 2. Conscious sedation with continuous EKG and oximetry monitoring. 3. EKG and oximetry remained stable throughout the procedure. Prior to the procedure informed consent was obtained. Any appropriate prior imaging studies were rev iewed. Using automated exposure control and adjustment of the mA and/or kV according to patient size , radiation dose was kept as low as reasonably achievable to obtain optimal diagnostic quality images . DICOM format image data is available electronically for review and comparison. The site was prepped in a sterile fashion. Full sterile technique was used, including cap, mask, kevin rile gloves and gown and a large sterile sheet. Hand hygiene and 2% chlorhexidine and/or betadine/al cohol prep was utilized per protocol for cutaneous antisepsis. The skin and subcutaneous tissues wer e infiltrated with local anesthetic solution. With CT guidance the previously identified target was localized. Biopsy was performed using the presc ribed needle as above. Following biopsy marrow aspiration was performed with repeat puncture. Adequa te hemostasis was obtained with compression at the puncture site. Follow-up CT scan reveals no hemorrhage. Conscious sedation was performed with the prescribed dosages and duration as above in the presence of an independent trained radiology nurse to assist in the monitoring of the patient. EKG and oximetry remained stable throughout the procedure. The patient tolerated the procedure well and there were no complications. The patient was sent to Radiology Outpatient Unit in stable condition. CONCLUSION: 1. Uncomplicated CT guided bone marrow aspirate. 2. Uncomplicated CT guided bone marrow biopsy. Cameron Bassett MD on November 23, 2016 at 16:59 Board Certified Radiologist. This report was verified electronically.
[2016-11-23 17:24] LABS: BONE MARROW PROCESSING COMPLETE; IRON STAIN DONE; JENNER GIEMSA STAIN DONE
[2016-11-23] MEDS ORDERED: PHARMACY ORDERED LAB ONE (20:45)
[2016-11-23] MEDS: VANCOMYCIN INJ 1,250 MG in SODIUM CHLOR 0.9% 250 ML INJ 250 ML IV SCH (22:07)
[2016-11-23 22:39] LABS: APTT (PATIENT) 28.5 SEC (24.3-30.1); PROTHROMBIN TIME - PATIENT 10.7 SEC (9.8-11.6)
[2016-11-24] VITALS (9 sets, daily range): BP systolic 77–128; BP diastolic 47–60; PULSE 82–120; RESP 16–19; TEMP 97–98.7; O2SAT 92–98
[2016-11-24] MEDS: PIPERACIL-TAZO 4.5 GM PREMIX 100 ML IV SCH ×4 (01:09→23:45)
[2016-11-24] MEDS: oxyCODONE/ACETAMINOPHEN 5 MG/325 MG TAB PO PRN ×6 (01:11→23:42)
[2016-11-24] MEDS: CHLORHEXIDINE GLUCONATE 2 % 1 PACK (2 CLOTHS)(taper/protocol) TOPICAL SCH (04:00)
[2016-11-24] MEDS: LEVOTHYROXINE SODIUM 125 MCG TAB PO SCH (05:47)
[2016-11-24] MEDS: NS + KCL 40 MEQ INJ 1,000 ML IV SCH ×2 (05:47→10:41)
[2016-11-24 07:35] LABS: APTT (PATIENT) 36.5 SEC (24.3-30.1); HEMATOCRIT 23.9 % (35.0-46.0); MEAN CELL VOLUME 80.7 FL (80.0-100.0); MEAN CORPUSCULAR HEMOGLOBIN 26.7 PG (27.0-34.0); MEAN CORPUSCULAR HGB CONC 33.1 % (32.0-36.0); PLATELET COUNT 45 TH/MM3 (150-450); PROTHROMBIN TIME - PATIENT 11.1 SEC (9.8-11.6); RED BLOOD COUNT 2.96 MIL/MM3 (4.00-5.30); RED CELL DISTRIBUTION WIDTH 20.4 % (11.6-17.2); WHITE BLOOD COUNT 8.7 TH/MM3 (4.0-11.0)
[2016-11-24 07:56] LABS: HEMO FLAGS AUTO DIFF
[2016-11-24 07:58] LABS: ANION GAP 8 MEQ/L (5-15); AST (GOT) 10 U/L (15-37); BICARBONATE 20.6 MEQ/L (21.0-32.0); BLOOD UREA NITROGEN 16 MG/DL (7-18); CHLORIDE 108 MEQ/L (98-107); GLOMERULAR FILTRATION RATE 68 ML/MIN (>89); POTASSIUM 3.8 MEQ/L (3.5-5.1); SODIUM (NA) 137 MEQ/L (136-145)
[2016-11-24 07:59] LABS: LDH SERUM 256 U/L (84-246)
[2016-11-24 08:03] LABS: ALKALINE PHOSPHATASE 43 U/L (45-117); ALT (GPT) 16 U/L (10-53); TOTAL BILIRUBIN ADULT 0.4 MG/DL (0.2-1.0)
[2016-11-24] MEDS: PANTOPRAZOLE SOD 20 MG DELAYED RELEASE TAB PO SCH (08:07)
[2016-11-24] MEDS: SODIUM CHLORIDE 0.9% FLUSH 10 ML FLUSH IV FLUSH SCH ×2 (08:08→20:41)
[2016-11-24 09:30] LABS: BANDS 5 % (0-6); BASOPHILS 2 % (0-2); BLASTS 7 % (0-0); CORRECTED NUCLEATED RBC 2 /100 WBC (0-0); EOSINOPHILS 4 % (0-4); KERATOCYTES 1+ (NORMAL); MYELOCYTES 1 % (0-0); NEUTROPHIL # MANUAL DIFF 4.9 TH/MM3 (1.8-7.7); POLYS (SEG NEUTROPHILS) 49 % (16-70); PROMYELOCYTES 1 % (0-0); WBC DIFF SAMPLE 100
[2016-11-24 09:31] LABS: OVALOCYTES 1+ (NORMAL); PLATELET ESTIMATE SMEAR LOW (NORMAL)
[2016-11-24 09:33] LABS: ACANTHOCYTES OCC (NORMAL); PLATELET MORPHOLOGY ENLARGED (NORMAL); SCAN/DIFF FINAL DIFF MANUAL
--- NOTE | 2016-11-24 09:54 | PD.ONC.PN ---
Subjective Subjective Remarks Afebrile overnight. Patient frustrated with being in the hospital. Her left arm is swollen and painful. She feels this is due to multiple blood draws. Objective Data Date Time Temp Pulse Resp B/P (MAP) Pulse Ox O2 Delivery O2 Flow Rate FiO2 11/24/16 08:00 97.9 90 18 128/47 (74) 95 11/24/16 04:16 92 Nasal Cannula 4.00 11/24/16 04:00 98.0 112 19 108/51 (70) 93 11/24/16 02:26 16 11/24/16 00:00 98.7 111 18 94/51 (65) 92 11/23/16 22:11 96 Nasal Cannula 2.00 11/23/16 20:54 18 11/23/16 20:00 96.5 109 19 142/91 (108) 93 11/23/16 17:00 97.0 75 18 101/64 (76) 92 11/23/16 12:00 106 11/23/16 12:00 98.2 106 12 105/63 (77) 11/23/16 10:59 93 Nasal Cannula 6.00 11/24/16 11/24/16 11/24/16 07:00 15:00 23:00 Intake Total 480 ml Output Total 500 ml Balance -20 ml Result Diagram: 11/24/1660411/24/16604 Laboratory Results Laboratory Tests Test 11/23/16 16:45 11/23/16 22:08 11/24/16 06:05 Prothrombin Time 10.7 SEC 11.1 SEC Prothromb Time International Ratio 1.0 RATIO 1.0 RATIO Activated Partial Thromboplast Time 28.5 SEC 36.5 SEC Vancomycin Level Trough 14.1 MCG/ML White Blood Count 8.7 TH/MM3 Red Blood Count 2.96 MIL/MM3 Hemoglobin 7.9 GM/DL Hematocrit 23.9 % Mean Corpuscular Volume 80.7 FL Mean Corpuscular Hemoglobin 26.7 PG Mean Corpuscular Hemoglobin Concent 33.1 % Red Cell Distribution Width 20.4 % Platelet Count 45 TH/MM3 Mean Platelet Volume 10.6 FL CBC Comment AUTO DIFF Differential Total Cells Counted 100 Neutrophils % (Manual) 49 % Band Neutrophils % 5 % Lymphocytes % 14 % Monocytes % 17 % Eosinophils % 4 % Basophils % 2 % Neutrophils # (Manual) 4.9 TH/MM3 Myelocytes 1 % Promyelocytes 1 % Nucleated Red Blood Cells 2 /100 WBC Differential Comment FINAL DIFF MANUAL Blastocytes 7 % Platelet Estimate LOW Platelet Morphology Comment ENLARGED Basophilic Stippling FAINT Ovalocytes 1+ Acanthocytes OCC Keratocytes 1+ Fibrinogen 436 mg/dL Blood Urea Nitrogen 16 MG/DL Creatinine 0.81 MG/DL Random Glucose 71 MG/DL Total Protein 4.7 GM/DL Albumin 1.6 GM/DL Calcium Level 7.9 MG/DL Alkaline Phosphatase 43 U/L Aspartate Amino Transf (AST/SGOT) 10 U/L Alanine Aminotransferase (ALT/SGPT) 16 U/L Lactate Dehydrogenase 256 U/L Total Bilirubin 0.4 MG/DL Sodium Level 137 MEQ/L Potassium Level 3.8 MEQ/L Chloride Level 108 MEQ/L Carbon Dioxide Level 20.6 MEQ/L Anion Gap 8 MEQ/L Estimat Glomerular Filtration Rate 68 ML/MIN Culture Results Microbiology Date/Time Source Procedure Growth Status 11/21/16 14:19 Blood Peripheral Aerobic Blood Culture - Preliminary NO GROWTH IN 2 DAYS Resulted 11/21/16 14:19 Blood Peripheral Anaerobic Blood Culture - Preliminary NO GROWTH IN 2 DAYS Resulted 11/21/16 14:11 Blood Peripheral Aerobic Blood Culture - Preliminary NO GROWTH IN 2 DAYS Resulted 11/21/16 14:11 Blood Peripheral Anaerobic Blood Culture - Preliminary NO GROWTH IN 2 DAYS Resulted Imaging Studies Last 24 hours Impressions Bone Biopsy CT 11/23/16 1053 Signed Impressions: Service Date/Time: Wednesday, November 23, 2016 16:22 - CONCLUSION: 1. Uncomplicated CT guided bone marrow aspirate. 2. Uncomplicated CT guided bone marrow biopsy. Cameron Bassett MD Administered Medications Medications (Trade) Dose Ordered Sig/Suyapa Route PRN Reason Start Time Stop Time Status Last Admin Dose Admin Sodium Chloride (NS Flush) 2 ml BID IV FLUSH 11/09/16 21:00 11/22/16 21:00 Sennosides (Senokot) 17.2 mg Q12H PRN PO MODERATE - SEVERE CONSTIPATION 11/09/16 13:30 11/20/16 16:41 Pantoprazole Sodium (Protonix) 20 mg DAILY PO 11/10/16 09:00 11/24/16 08:07 Diphenhydramine HCl (Benadryl) 25 mg Q6H PRN PO ITCHING 11/09/16 16:15 11/21/16 20:44 Acetaminophen (Tylenol) 650 mg Q4H PRN PO HEADACHE 11/09/16 22:30 11/22/16 11:24 Ondansetron HCl (Zofran Inj) 4 mg Q6HR PRN IV PUSH nausea 11/09/16 23:30 11/23/16 04:01 Levothyroxine Sodium (Synthroid) 112 mcg MoWeFr@0600 PO 11/12/16 07:30 11/23/16 05:36 Levothyroxine Sodium (Synthroid) 25 mcg MoWeFr@0600 PO 11/12/16 07:30 11/23/16 05:36 Levothyroxine Sodium (Synthroid) 125 mcg SuTuThSa@0600 PO 11/13/16 06:00 11/24/16 05:47 Piperacillin Sod/ Tazobactam Sod 100 ml @ 200 mls/hr Q8H IV 11/21/16 16:00 11/24/16 08:07 Potassium Chloride/Sodium Chloride 1,000 ml @ 100 mls/hr Q10H IV 11/22/16 13:15 11/24/16 05:47 Acetaminophen (Tylenol) 650 mg Q4H PRN PO SEE LABEL COMMENTS 11/22/16 15:30 11/22/16 16:40 Oxycodone/ Acetaminophen (Percocet 5-325 Mg) 1 tab Q4H PRN PO PAIN SCALE 1 TO 4 11/22/16 18:00 11/23/16 05:36 Oxycodone/ Acetaminophen (Percocet 5-325 Mg) 2 tab Q4H PRN PO PAIN SCALE 5 TO 10 11/22/16 18:00 11/24/16 05:47 Miscellaneous Information Patient in critical care unit? Ass... Q361D .XX 11/22/16 21:30 11/22/16 21:30 Chlorhexidine Gluconate (Chlorhexidine 2% Cloth) 3 pack DAILY@04 TOPICAL 11/23/16 04:00 11/27/16 04:01 11/24/16 04:00 Hydromorphone HCl (Dilaudid Pf Inj) 1 mg Q4H PRN IV PUSH Breakthrough Pain 11/23/16 09:00 11/23/16 20:24 Vancomycin HCl 1250 mg/Sodium Chloride 262.5 ml @ 250 mls/hr Q24H IV 11/23/16 21:00 11/23/16 22:07 Objective Remarks GENERAL: Elderly female, anxious, sitting up in nad SKIN: Warm and dry. HEAD: Normocephalic. EYES: No injection or drainage. NECK: Supple, trachea midline. CARDIOVASCULAR: +S1/S2, tachy RESPIRATORY: anterior galindo clear. On 4L O2 via NC GASTROINTESTINAL: Abdomen soft, non-tender, nondistended. EXTREMITIES: No cyanosis. left forearm with swelling and bruising. NEUROLOGICAL: awake and alert, normal speech. moving all extremities. Assessment/Plan Problem List: (1) Thrombocytopenia ICD Codes: D69.6 - Thrombocytopenia, unspecified Plan: --some of platelets are enlarged suggesting platelets destruction or sequestration. --differential diagnosis including antibiotic induced thrombocytopenia, idiopathic thrombocytopenia, heparin-induced thrombocytopenia. TTP or primary bone marrow disorder. --peripheral smear does not show significant schistocyte--> less likely to be a TTP. -- antibiotic may have caused an acute drop of the platelet count--> per ID, plan to dc empiric abx if remains afebrile, with negative blood clx and no other e/o infection --HIT negative (2) Microcytic anemia ICD Codes: D50.9 - Iron deficiency anemia, unspecified Plan: ++microcytosis. --iron studies show elevated ferritin, low TIBC, low serum iron-->this is more consistent with anemia of chronic disease/inflammation --B12/folate showed no deficiency (3) Leukocytosis ICD Codes: D72.829 - Elevated white blood cell count, unspecified Status: Resolved Plan: --WBC now within normal limits --also has had low grade temperatures --BC no growth --ID following Assessment 76y/o female admitted with weakness, ARF, dehydration, metabolic acidosis. Hematology consulted for worsening thrombocytopenia. history of thyroid cancer treated 30 years ago. Crohn's disease. Thyroidectomy cholecystectomy bilateral oophorectomy. Hemorrhoidectomy. Plan 1. monitor CBC 2. check U/S left arm 3. ice to left forearm 3. await pathology Attending Statement The exam, history, and the medical decision-making described in the above note were completed with the assistance of the mid-level provider. I reviewed and agree with the findings presented. I attest that I had a [id number] encounter with the patient on the same day, and personally performed and documented my assessment and findings in the medical record. Mild back pain and chest wall pain which could be due pulling herself off the bed. Platelet stable this am. WBC trended down. Hgb trended down slightly but no plan for transfusion today. S/p bone marrow biopsy yesterday. Discussed with pathology , no significant blast was noted on peripheral smear. ?marrow suppression due to viral infection. Continue abx per ID. Milana Chapin Nov 24, 2016 09:54 Nima Mclean MD Nov 24, 2016 12:13
--- NOTE | 2016-11-24 13:31 | RADRPT ---
EXAM DATE/TIME: 11/24/2016 12:44 [facility] COMPARISON: No previous studies available for comparison. INDICATIONS : Right arm swelling. MEDICAL HISTORY : Carcinoma, thyroid. Crohn's disease. Anticoagulant therapy, aspirin. Dyspnea. Acute kidney injury. B lood transfusions. SURGICAL HISTORY : Cholecystectomy. Hysterectomy. Tonsillectomy. Adenoidectomy. Thyroidectomy. Ovarian cyst removal. ENCOUNTER: Initial ACUITY: 4 - 6 days PAIN SCORE: 5/10 LOCATION: Right arm. FINDINGS: There is spontaneous flow documented in the brachial, basilic, cephalic, axillary, and subclavian vei ns. The vessels are compressible and augmentation response is documented. No filling defects are se en. The flow is phasic with respiration. Direction of flow in the jugular vein is caudal. CONCLUSION: No DVT. Kwabena Lucero MD on November 24, 2016 at 13:28 Board Certified Radiologist. This report was verified electronically.
[2016-11-24] MEDS: SENNOSIDES 8.6 MG TAB PO PRN (14:39)
--- NOTE | 2016-11-24 15:24 | HHI.PR ---
Subjective Remarks Platelets are 45 which is a slight decline. Hemoglobin is 7.9, also a slight decline. Creatinine is holding steady at 0.81. Patient has fatigue this afternoon but was feeling slightly better this morning. Bone marrow biopsy results are pending. Objective Vital Signs Date Time Temp Pulse Resp B/P (MAP) Pulse Ox O2 Delivery O2 Flow Rate FiO2 11/24/16 12:00 98.5 88 16 88/58 (68) 95 11/24/16 10:40 98 Nasal Cannula 4.00 11/24/16 08:00 97.9 90 18 128/47 (74) 95 11/24/16 07:00 4.00 11/24/16 04:16 92 Nasal Cannula 4.00 11/24/16 04:00 98.0 112 19 108/51 (70) 93 11/24/16 02:26 16 11/24/16 00:00 98.7 111 18 94/51 (65) 92 11/23/16 22:11 96 Nasal Cannula 2.00 11/23/16 20:54 18 11/23/16 20:00 96.5 109 19 142/91 (108) 93 11/23/16 17:00 97.0 75 18 101/64 (76) 92 I/O 11/23/16 11/23/16 11/23/16 11/24/16 11/24/16 11/24/16 07:00 15:00 23:00 07:00 15:00 23:00 Intake Total 1080 ml 480 ml 480 ml 1060 ml Output Total 150 ml 500 ml Balance 1080 ml 330 ml -20 ml 1060 ml Intake Oral 480 ml 480 ml 480 ml 960 ml IV Total 100 ml 100 ml Platelets 470 ml Blood Product IV Normal Saline Flush 30 ml Output Urine Total 150 ml 500 ml # Voids 2 1 # Bowel Movements 0 0 Result Diagram: 11/24/1660411/24/16604 Objective Remarks GENERAL: NAD, A&Ox3 HEAD: Normocephalic. NECK: Supple, trachea midline. No lymphadenopathy. EYES: No scleral icterus. No injection or drainage. CARDIOVASCULAR: Regular rate and rhythm without murmurs, gallops, or rubs. RESPIRATORY: Breath sounds equal bilaterally. No accessory muscle use. GASTROINTESTINAL: Abdomen soft, non-tender, nondistended. MUSCULOSKELETAL: No cyanosis, or edema. SKIN: Warm and dry. Petechia forearms. NEURO: No focal neurological deficitis. A/P Problem List: (1) Pneumonia ICD Code: J18.9 - Pneumonia, unspecified organism (2) Hypotension ICD Code: I95.9 - Hypotension, unspecified (3) Acute kidney injury ICD Code: N17.9 - Acute kidney failure, unspecified Status: Acute (4) Hyponatremia ICD Code: E87.1 - Hypo-osmolality and hyponatremia Status: Acute (5) Hypokalemia ICD Code: E87.6 - Hypokalemia Status: Acute (6) Dehydration ICD Code: E86.0 - Dehydration Status: Acute Assessment and Plan Assessment and plan 76-year-old female admitted with acute kidney injury and dehydration and Crohn' s disease flareup with diarrhea and abdominal pain. Recurrent thrombocytopenia. Possible ITP. Bone marrow biopsy has been obtained. Continue steroids. Etiology is neoplastic versus viral versus autoimmune. Continue to monitor CBC and BMP. Labs ordered. Thrombocytopenia Recurrent (had occurred previously during this admit) Hematology following Continue steroids Bone marrow biopsy planned Patient is not on heparin Avoid blood thinners Exacerbation of Crohn's disease Diarrhea Clinically improved Continue steroids Follow for further improvement Acute kidney failure Possible ATN Acute kidney injury resolved Continue to monitor renal function Nephrology following Pneumonia Completed Levaquin Follow clinical symptoms. No white blood cell count Continue systemic steroids Possible sepsis Vancomycin ID following Hyponatremia Resolved Continue to monitor sodium levels Hypotension Monitor blood pressures Pressors if needed DVT prophylaxis SCDs Problem Qualifiers (1) Pneumonia: Gallito Reed MD Nov 24, 2016 15:24
[2016-11-24] MEDS: VANCOMYCIN INJ 1,250 MG in SODIUM CHLOR 0.9% 250 ML INJ 250 ML IV SCH (20:40)
[2016-11-25] VITALS (7 sets, daily range): BP systolic 89–134; BP diastolic 47–60; PULSE 84–118; RESP 12–18; TEMP 96.6–98.5; O2SAT 92–95
[2016-11-25] MEDS: NS + KCL 40 MEQ INJ 1,000 ML IV SCH ×2 (03:21→15:00)
[2016-11-25] MEDS: CHLORHEXIDINE GLUCONATE 2 % 1 PACK (2 CLOTHS)(taper/protocol) TOPICAL SCH (04:00)
[2016-11-25] MEDS: LEVOTHYROXINE SODIUM 125 MCG TAB PO SCH (04:46)
[2016-11-25] MEDS: oxyCODONE/ACETAMINOPHEN 5 MG/325 MG TAB PO PRN ×4 (06:14→23:34)
[2016-11-25 07:24] LABS: HEMATOCRIT 23.8 % (35.0-46.0); MEAN CELL VOLUME 82.2 FL (80.0-100.0); MEAN CORPUSCULAR HEMOGLOBIN 26.8 PG (27.0-34.0); MEAN CORPUSCULAR HGB CONC 32.6 % (32.0-36.0); PLATELET COUNT 43 TH/MM3 (150-450); RED CELL DISTRIBUTION WIDTH 20.9 % (11.6-17.2); WHITE BLOOD COUNT 9.3 TH/MM3 (4.0-11.0)
[2016-11-25 07:30] LABS: HEMO FLAGS AUTO DIFF
[2016-11-25 07:34] LABS: APTT (PATIENT) 34.5 SEC (24.3-30.1); PROTHROMBIN TIME - PATIENT 10.7 SEC (9.8-11.6)
[2016-11-25 07:42] LABS: ALT (GPT) 12 U/L (10-53); ANION GAP 8 MEQ/L (5-15); AST (GOT) 6 U/L (15-37); BLOOD UREA NITROGEN 16 MG/DL (7-18); CHLORIDE 111 MEQ/L (98-107); GLOMERULAR FILTRATION RATE 59 ML/MIN (>89); LDH SERUM 264 U/L (84-246); POTASSIUM 3.9 MEQ/L (3.5-5.1); SODIUM (NA) 140 MEQ/L (136-145)
[2016-11-25 07:44] LABS: ALKALINE PHOSPHATASE 54 U/L (45-117); TOTAL BILIRUBIN ADULT 0.3 MG/DL (0.2-1.0)
[2016-11-25] MEDS: SODIUM CHLORIDE 0.9% FLUSH 10 ML FLUSH IV FLUSH SCH ×2 (08:12→21:00)
[2016-11-25] MEDS: SENNOSIDES 8.6 MG TAB PO PRN (08:28)
[2016-11-25] MEDS: PANTOPRAZOLE SOD 20 MG DELAYED RELEASE TAB PO SCH (08:28)
[2016-11-25] MEDS: PIPERACIL-TAZO 4.5 GM PREMIX 100 ML IV SCH ×2 (08:29→15:49)
--- NOTE | 2016-11-25 09:33 | PD.ONC.PN ---
Subjective Subjective Remarks Afebrile overnight. Patient stating she feels a bit better today. Still with bruising/swelling of left forearm. Eager to know results of bone marrow biopsy. Objective Data Date Time Temp Pulse Resp B/P (MAP) Pulse Ox O2 Delivery O2 Flow Rate FiO2 11/25/16 04:00 96.6 118 18 128/54 (78) 94 11/25/16 00:00 96.9 99 18 134/60 (84) 94 11/24/16 22:00 97.0 82 17 96/56 (69) 95 11/24/16 19:48 98 Nasal Cannula 4.00 11/24/16 16:00 97.7 120 16 77/52 (60) 93 96/54 (68) 128/60 (82) 11/24/16 12:00 98.5 88 16 88/58 (68) 95 11/24/16 10:40 98 Nasal Cannula 4.00 11/25/16 11/25/16 11/25/16 07:00 15:00 23:00 Intake Total 480 ml Output Total 550 ml Balance -70 ml Result Diagram: 11/25/16 0533 11/25/16 0533 Laboratory Results Laboratory Tests Test 11/25/16 05:33 White Blood Count 9.3 TH/MM3 Red Blood Count 2.90 MIL/MM3 Hemoglobin 7.8 GM/DL Hematocrit 23.8 % Mean Corpuscular Volume 82.2 FL Mean Corpuscular Hemoglobin 26.8 PG Mean Corpuscular Hemoglobin Concent 32.6 % Red Cell Distribution Width 20.9 % Platelet Count 43 TH/MM3 Mean Platelet Volume 10.6 FL CBC Comment AUTO DIFF Prothrombin Time 10.7 SEC Prothromb Time International Ratio 1.0 RATIO Activated Partial Thromboplast Time 34.5 SEC Fibrinogen 449 mg/dL Blood Urea Nitrogen 16 MG/DL Creatinine 0.92 MG/DL Random Glucose 73 MG/DL Total Protein 4.9 GM/DL Albumin 1.7 GM/DL Calcium Level 8.2 MG/DL Alkaline Phosphatase 54 U/L Aspartate Amino Transf (AST/SGOT) 6 U/L Alanine Aminotransferase (ALT/SGPT) 12 U/L Lactate Dehydrogenase 264 U/L Total Bilirubin 0.3 MG/DL Sodium Level 140 MEQ/L Potassium Level 3.9 MEQ/L Chloride Level 111 MEQ/L Carbon Dioxide Level 21.0 MEQ/L Anion Gap 8 MEQ/L Estimat Glomerular Filtration Rate 59 ML/MIN Administered Medications Medications (Trade) Dose Ordered Sig/Suyapa Route PRN Reason Start Time Stop Time Status Last Admin Dose Admin Sodium Chloride (NS Flush) 2 ml BID IV FLUSH 11/09/16 21:00 11/22/16 21:00 Sennosides (Senokot) 17.2 mg Q12H PRN PO MODERATE - SEVERE CONSTIPATION 11/09/16 13:30 11/25/16 08:28 Pantoprazole Sodium (Protonix) 20 mg DAILY PO 11/10/16 09:00 11/25/16 08:28 Diphenhydramine HCl (Benadryl) 25 mg Q6H PRN PO ITCHING 11/09/16 16:15 11/21/16 20:44 Acetaminophen (Tylenol) 650 mg Q4H PRN PO HEADACHE 11/09/16 22:30 11/22/16 11:24 Ondansetron HCl (Zofran Inj) 4 mg Q6HR PRN IV PUSH nausea 11/09/16 23:30 11/23/16 04:01 Levothyroxine Sodium (Synthroid) 112 mcg MoWeFr@0600 PO 11/12/16 07:30 11/23/16 05:36 Levothyroxine Sodium (Synthroid) 25 mcg MoWeFr@0600 PO 11/12/16 07:30 11/23/16 05:36 Levothyroxine Sodium (Synthroid) 125 mcg SuTuThSa@0600 PO 11/13/16 06:00 11/25/16 04:46 Piperacillin Sod/ Tazobactam Sod 100 ml @ 200 mls/hr Q8H IV 11/21/16 16:00 11/25/16 08:29 Potassium Chloride/Sodium Chloride 1,000 ml @ 100 mls/hr Q10H IV 11/22/16 13:15 11/25/16 03:21 Acetaminophen (Tylenol) 650 mg Q4H PRN PO SEE LABEL COMMENTS 11/22/16 15:30 11/22/16 16:40 Oxycodone/ Acetaminophen (Percocet 5-325 Mg) 1 tab Q4H PRN PO PAIN SCALE 1 TO 4 11/22/16 18:00 11/25/16 06:14 Oxycodone/ Acetaminophen (Percocet 5-325 Mg) 2 tab Q4H PRN PO PAIN SCALE 5 TO 10 11/22/16 18:00 11/24/16 23:42 Miscellaneous Information Patient in critical care unit? Ass... Q361D .XX 11/22/16 21:30 11/22/16 21:30 Chlorhexidine Gluconate (Chlorhexidine 2% Cloth) 3 pack DAILY@04 TOPICAL 11/23/16 04:00 11/27/16 04:01 11/25/16 04:00 Hydromorphone HCl (Dilaudid Pf Inj) 1 mg Q4H PRN IV PUSH Breakthrough Pain 11/23/16 09:00 11/23/16 20:24 Vancomycin HCl 1250 mg/Sodium Chloride 262.5 ml @ 250 mls/hr Q24H IV 11/23/16 21:00 11/24/16 20:40 Objective Remarks GENERAL: Elderly female, lying in bed in nad. SKIN: Warm and dry. HEAD: Normocephalic. EYES: No injection or drainage. NECK: Supple, trachea midline. CARDIOVASCULAR: +S1/S2, tachy RESPIRATORY: anterior galindo clear. On 4L O2 via [place] GASTROINTESTINAL: Abdomen soft, non-tender, nondistended. EXTREMITIES: No cyanosis. left forearm with ecchymoses. swelling unchanged from yesterday NEUROLOGICAL: awake and alert, moving extremities. normal speech Assessment/Plan Problem List: (1) Thrombocytopenia ICD Codes: D69.6 - Thrombocytopenia, unspecified Plan: --some of platelets are enlarged suggesting platelets destruction or sequestration. --differential diagnosis including antibiotic induced thrombocytopenia, idiopathic thrombocytopenia, heparin-induced thrombocytopenia. TTP or primary bone marrow disorder. --peripheral smear does not show significant schistocyte--> less likely to be a TTP. -- antibiotic may have caused an acute drop of the platelet count--> per ID, plan to dc empiric abx if remains afebrile, with negative blood clx and no other e/o infection --HIT negative (2) Microcytic anemia ICD Codes: D50.9 - Iron deficiency anemia, unspecified Plan: ++microcytosis. --iron studies show elevated ferritin, low TIBC, low serum iron-->this is more consistent with anemia of chronic disease/inflammation --B12/folate showed no deficiency (3) Leukocytosis ICD Codes: D72.829 - Elevated white blood cell count, unspecified Status: Resolved Plan: --WBC now within normal limits --also has had low grade temperatures --BC no growth --ID following Assessment 76y/o female admitted with weakness, ARF, dehydration, metabolic acidosis. Hematology consulted for worsening thrombocytopenia. history of thyroid cancer treated 30 years ago. Crohn's disease. Thyroidectomy cholecystectomy bilateral oophorectomy. Hemorrhoidectomy. Plan 1. monitor CBC 2. await bone marrow biopsy results Attending Statement The exam, history, and the medical decision-making described in the above note were completed with the assistance of the mid-level provider. I reviewed and agree with the findings presented. I attest that I had a [id number] encounter with the patient on the same day, and personally performed and documented my assessment and findings in the medical record. Feeling better. CBC stable this morning. 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 WIll need to do mutation studies. Final path pending. Extensive discussion with pt, her and nephew . Discussed diagnosis, prognosis and treatment options. We discussed induction chemo, Vidaza/Dacogen, or supportive care. We also discussed referral to tertiary center. With her advanced age, I do not recommend induction chemotherapy. Can consider Vidaza or Dacogen if she wants to try treatment. They are going to think over the options and we will discussed further. Continue supportive care for now. Milana Chapin Nov 25, 2016 09:33 Nima Mclean MD Nov 25, 2016 11:24
--- NOTE | 2016-11-25 10:11 | HHI.PR ---
Subjective Remarks Platelets are not ordered 3. Destructive pattern does not appear to be present at this point. Additionally a pattern to suggest that she's actively producing platelets is not present needed. Hemoglobin is 7.8 which is relatively stable. White blood cell count 9.3. Reports for Bone marrow biopsy and peripheral smear are pending. Objective Vital Signs Date Time Temp Pulse Resp B/P (MAP) Pulse Ox O2 Delivery O2 Flow Rate FiO2 11/25/16 04:00 96.6 118 18 128/54 (78) 94 11/25/16 00:00 96.9 99 18 134/60 (84) 94 11/24/16 22:00 97.0 82 17 96/56 (69) 95 11/24/16 19:48 98 Nasal Cannula 4.00 11/24/16 16:00 97.7 120 16 77/52 (60) 93 96/54 (68) 128/60 (82) 11/24/16 12:00 98.5 88 16 88/58 (68) 95 11/24/16 10:40 98 Nasal Cannula 4.00 I/O 11/24/16 11/24/16 11/24/16 11/25/16 11/25/16 11/25/16 07:00 15:00 23:00 07:00 15:00 23:00 Intake Total 480 ml 1060 ml 480 ml 480 ml Output Total 500 ml 550 ml Balance -20 ml 1060 ml 480 ml -70 ml Intake Oral 480 ml 960 ml 480 ml 480 ml IV Total 100 ml Output Urine Total 500 ml 550 ml # Voids 1 1 # Bowel Movements 0 Result Diagram: 11/25/16 0533 11/25/16 0533 Objective Remarks GENERAL: NAD, A&Ox3 HEAD: Normocephalic. NECK: Supple, trachea midline. No lymphadenopathy. EYES: No scleral icterus. No injection or drainage. CARDIOVASCULAR: Regular rate and rhythm without murmurs, gallops, or rubs. RESPIRATORY: Breath sounds equal bilaterally. No accessory muscle use. GASTROINTESTINAL: Abdomen soft, non-tender, nondistended. MUSCULOSKELETAL: No cyanosis, or edema. SKIN: Warm and dry. Petechia forearms. NEURO: No focal neurological deficitis. A/P Problem List: (1) Pneumonia ICD Code: J18.9 - Pneumonia, unspecified organism (2) Hypotension ICD Code: I95.9 - Hypotension, unspecified (3) Acute kidney injury ICD Code: N17.9 - Acute kidney failure, unspecified Status: Acute (4) Hyponatremia ICD Code: E87.1 - Hypo-osmolality and hyponatremia Status: Acute (5) Hypokalemia ICD Code: E87.6 - Hypokalemia Status: Acute (6) Dehydration ICD Code: E86.0 - Dehydration Status: Acute Assessment and Plan Assessment and plan 76-year-old female admitted with acute kidney injury and dehydration and Crohn' s disease flareup with diarrhea and abdominal pain. Recurrent thrombocytopenia. Possible ITP. Bone marrow biopsy has been obtained. Continue steroids. Etiology is neoplastic versus viral versus autoimmune. Continue to monitor CBC and BMP. Follow for reports on bone marrow biopsy and peripheral smear. Labs reviewed. Labs ordered. Thrombocytopenia Recurrent (had occurred previously during this admit) Hematology following Continue steroids Bone marrow biopsy planned Patient is not on heparin Avoid blood thinners Exacerbation of Crohn's disease Diarrhea Clinically improved Continue steroids Follow for further improvement Acute kidney failure Possible ATN Acute kidney injury resolved Continue to monitor renal function Nephrology following Pneumonia Completed Levaquin Follow clinical symptoms. No white blood cell count Continue systemic steroids Possible sepsis Vancomycin ID following Hyponatremia Resolved Continue to monitor sodium levels Hypotension Monitor blood pressures Pressors if needed DVT prophylaxis SCDs Problem Qualifiers (1) Pneumonia: Gallito Reed MD Nov 25, 2016 10:11
[2016-11-25 10:29] LABS: BANDS 7 % (0-6); BLASTS 4 % (0-0); CORRECTED NUCLEATED RBC 2 /100 WBC (0-0); EOSINOPHILS 6 % (0-4); MYELOCYTES 1 % (0-0); NEUTROPHIL # MANUAL DIFF 4.2 TH/MM3 (1.8-7.7); POLYS (SEG NEUTROPHILS) 37 % (16-70); WBC DIFF SAMPLE 100
[2016-11-25 10:30] LABS: KERATOCYTES 1+ (NORMAL)
[2016-11-25 10:31] LABS: ACANTHOCYTES OCC (NORMAL); PLATELET ESTIMATE SMEAR LOW (NORMAL); PLATELET MORPHOLOGY ENLARGED (NORMAL)
[2016-11-25 10:32] LABS: OVALOCYTES 1+ (NORMAL)
[2016-11-25 10:34] LABS: SCAN/DIFF FINAL DIFF MANUAL
[2016-11-25] MEDS: PHARMACY ORDERED LAB ONE (20:45)
[2016-11-25] MEDS: VANCOMYCIN INJ 1,250 MG in SODIUM CHLOR 0.9% 250 ML INJ 250 ML IV SCH (21:00)
[2016-11-26] VITALS (9 sets, daily range): BP systolic 94–134; BP diastolic 53–67; PULSE 95–113; RESP 17–21; TEMP 96–98.4; O2SAT 93–96
[2016-11-26] MEDS: NS + KCL 40 MEQ INJ 1,000 ML IV SCH ×2 (00:18→08:47)
[2016-11-26] MEDS: PIPERACIL-TAZO 4.5 GM PREMIX 100 ML IV SCH ×3 (00:18→18:51)
[2016-11-26] MEDS: CHLORHEXIDINE GLUCONATE 2 % 1 PACK (2 CLOTHS)(taper/protocol) TOPICAL SCH (04:00)
[2016-11-26] MEDS: oxyCODONE/ACETAMINOPHEN 5 MG/325 MG TAB PO PRN ×3 (05:46→21:42)
[2016-11-26] MEDS: LEVOTHYROXINE SODIUM 25 MCG TAB PO SCH (05:46)
[2016-11-26] MEDS: LEVOTHYROXINE SODIUM 112 MCG TAB PO SCH (06:34)
[2016-11-26] MEDS: SODIUM CHLORIDE 0.9% FLUSH 10 ML FLUSH IV FLUSH SCH ×2 (08:48→21:00)
[2016-11-26] MEDS: PANTOPRAZOLE SOD 20 MG DELAYED RELEASE TAB PO SCH (08:48)
[2016-11-26] MEDS ORDERED: SODIUM CHLOR 0.9% 250 ML INJ 250 ML IV ONE (10:00)
[2016-11-26 10:15] LABS: HEMATOCRIT 25.2 % (35.0-46.0); MEAN CELL VOLUME 81.9 FL (80.0-100.0); MEAN CORPUSCULAR HEMOGLOBIN 26.5 PG (27.0-34.0); MEAN CORPUSCULAR HGB CONC 32.3 % (32.0-36.0); PLATELET COUNT 50 TH/MM3 (150-450); RED BLOOD COUNT 3.08 MIL/MM3 (4.00-5.30); RED CELL DISTRIBUTION WIDTH 20.5 % (11.6-17.2); WHITE BLOOD COUNT 10.3 TH/MM3 (4.0-11.0)
[2016-11-26 10:19] LABS: HEMO FLAGS AUTO DIFF
[2016-11-26 10:37] LABS: ALT (GPT) 13 U/L (10-53); ANION GAP 7 MEQ/L (5-15); AST (GOT) 10 U/L (15-37); BICARBONATE 19.8 MEQ/L (21.0-32.0); BLOOD UREA NITROGEN 14 MG/DL (7-18); CHLORIDE 112 MEQ/L (98-107); GLOMERULAR FILTRATION RATE 75 ML/MIN (>89); SODIUM (NA) 139 MEQ/L (136-145)
[2016-11-26 10:39] LABS: APTT (PATIENT) 31.7 SEC (24.3-30.1); PROTHROMBIN TIME - PATIENT 10.9 SEC (9.8-11.6)
[2016-11-26 10:41] LABS: ALKALINE PHOSPHATASE 52 U/L (45-117); LDH SERUM 261 U/L (84-246); TOTAL BILIRUBIN ADULT 0.3 MG/DL (0.2-1.0)
[2016-11-26 10:58] LABS: BANDS 6 % (0-6); BLASTS 4 % (0-0); EOSINOPHILS 2 % (0-4); METAMYELOCYTES 1 % (0-1); MYELOCYTES 7 % (0-0); NEUTROPHIL # MANUAL DIFF 7.2 TH/MM3 (1.8-7.7); POLYS (SEG NEUTROPHILS) 56 % (16-70); WBC DIFF SAMPLE 100
[2016-11-26 11:00] LABS: ACANTHOCYTES OCC (NORMAL); KERATOCYTES 1+ (NORMAL); OVALOCYTES 1+ (NORMAL); PLATELET ESTIMATE SMEAR LOW (NORMAL); PLATELET MORPHOLOGY ENLARGED (NORMAL); SCAN/DIFF FINAL DIFF MANUAL
--- NOTE | 2016-11-26 11:12 | PD.ONC.PN ---
Subjective Subjective Remarks Afebrile overnight. Patient continues to feel fatigued. She states she has decided to go back to [place] for treatment once she feels less fatigued. Objective Data Date Time Temp Pulse Resp B/P (MAP) Pulse Ox O2 Delivery O2 Flow Rate FiO2 11/26/16 08:54 94 Nasal Cannula 3.00 11/26/16 08:53 94 Nasal Cannula 4.00 11/26/16 08:00 97.6 104 20 134/64 (87) 94 Manual Cuff/Auscultation 11/26/16 04:00 96.1 100 18 116/59 (78) 95 11/26/16 00:00 96.0 99 17 118/63 (81) 94 11/25/16 22:18 94 Nasal Cannula 4.00 11/25/16 20:00 97.2 84 18 92/47 (62) 95 11/25/16 16:00 98.3 104 14 89/57 (68) 94 11/25/16 12:00 98.2 100 12 98/54 (69) 92 11/26/16 11/26/16 11/26/16 07:00 15:00 23:00 Intake Total 480 ml Output Total 750 ml Balance -270 ml Result Diagram: 11/26/16 0925 11/26/16 0925 Laboratory Results Laboratory Tests Test 11/26/16 09:25 White Blood Count 10.3 TH/MM3 Red Blood Count 3.08 MIL/MM3 Hemoglobin 8.2 GM/DL Hematocrit 25.2 % Mean Corpuscular Volume 81.9 FL Mean Corpuscular Hemoglobin 26.5 PG Mean Corpuscular Hemoglobin Concent 32.3 % Red Cell Distribution Width 20.5 % Platelet Count 50 TH/MM3 Mean Platelet Volume 11.9 FL CBC Comment AUTO DIFF Differential Total Cells Counted 100 Neutrophils % (Manual) 56 % Band Neutrophils % 6 % Lymphocytes % 14 % Monocytes % 10 % Eosinophils % 2 % Neutrophils # (Manual) 7.2 TH/MM3 Metamyelocytes 1 % Myelocytes 7 % Differential Comment FINAL DIFF MANUAL Blastocytes 4 % Platelet Estimate LOW Platelet Morphology Comment ENLARGED Ovalocytes 1+ Acanthocytes OCC Keratocytes 1+ Prothrombin Time 10.9 SEC Prothromb Time International Ratio 1.0 RATIO Activated Partial Thromboplast Time 31.7 SEC Fibrinogen 397 mg/dL Blood Urea Nitrogen 14 MG/DL Creatinine 0.75 MG/DL Random Glucose 90 MG/DL Total Protein 5.0 GM/DL Albumin 1.6 GM/DL Calcium Level 7.7 MG/DL Alkaline Phosphatase 52 U/L Aspartate Amino Transf (AST/SGOT) 10 U/L Alanine Aminotransferase (ALT/SGPT) 13 U/L Lactate Dehydrogenase 261 U/L Total Bilirubin 0.3 MG/DL Sodium Level 139 MEQ/L Potassium Level 4.0 MEQ/L Chloride Level 112 MEQ/L Carbon Dioxide Level 19.8 MEQ/L Anion Gap 7 MEQ/L Estimat Glomerular Filtration Rate 75 ML/MIN Administered Medications Medications (Trade) Dose Ordered Sig/Suyapa Route PRN Reason Start Time Stop Time Status Last Admin Dose Admin Sodium Chloride (NS Flush) 2 ml BID IV FLUSH 11/09/16 21:00 11/22/16 21:00 Sennosides (Senokot) 17.2 mg Q12H PRN PO MODERATE - SEVERE CONSTIPATION 11/09/16 13:30 11/25/16 08:28 Pantoprazole Sodium (Protonix) 20 mg DAILY PO 11/10/16 09:00 11/26/16 08:48 Diphenhydramine HCl (Benadryl) 25 mg Q6H PRN PO ITCHING 11/09/16 16:15 11/21/16 20:44 Acetaminophen (Tylenol) 650 mg Q4H PRN PO HEADACHE 11/09/16 22:30 11/22/16 11:24 Ondansetron HCl (Zofran Inj) 4 mg Q6HR PRN IV PUSH nausea 11/09/16 23:30 11/23/16 04:01 Levothyroxine Sodium (Synthroid) 112 mcg MoWeFr@0600 PO 11/12/16 07:30 11/26/16 06:34 Levothyroxine Sodium (Synthroid) 25 mcg MoWeFr@0600 PO 11/12/16 07:30 11/26/16 05:46 Levothyroxine Sodium (Synthroid) 125 mcg SuTuThSa@0600 PO 11/13/16 06:00 11/25/16 04:46 Piperacillin Sod/ Tazobactam Sod 100 ml @ 200 mls/hr Q8H IV 11/21/16 16:00 11/26/16 08:48 Potassium Chloride/Sodium Chloride 1,000 ml @ 100 mls/hr Q10H IV 11/22/16 13:15 11/26/16 08:47 Acetaminophen (Tylenol) 650 mg Q4H PRN PO SEE LABEL COMMENTS 11/22/16 15:30 11/22/16 16:40 Oxycodone/ Acetaminophen (Percocet 5-325 Mg) 1 tab Q4H PRN PO PAIN SCALE 1 TO 4 11/22/16 18:00 11/25/16 23:34 Oxycodone/ Acetaminophen (Percocet 5-325 Mg) 2 tab Q4H PRN PO PAIN SCALE 5 TO 10 11/22/16 18:00 11/26/16 05:46 Miscellaneous Information Patient in critical care unit? Ass... Q361D .XX 11/22/16 21:30 11/22/16 21:30 Chlorhexidine Gluconate (Chlorhexidine 2% Cloth) 3 pack DAILY@04 TOPICAL 11/23/16 04:00 11/27/16 04:01 11/26/16 04:00 Hydromorphone HCl (Dilaudid Pf Inj) 1 mg Q4H PRN IV PUSH Breakthrough Pain 11/23/16 09:00 11/23/16 20:24 Vancomycin HCl 1250 mg/Sodium Chloride 262.5 ml @ 250 mls/hr Q24H IV 11/23/16 21:00 11/24/16 20:40 Objective Remarks GENERAL: Elderly female, sitting up in chair next to bed, eating breakfast. SKIN: Warm and dry. HEAD: Normocephalic. EYES: No injection or drainage. NECK: Supple, trachea midline. CARDIOVASCULAR: +S1/S2, tachy RESPIRATORY: anterior galindo clear. diminished at bases. On 3L O2 via NC GASTROINTESTINAL: Abdomen soft, non-tender, nondistended. EXTREMITIES: No cyanosis. left forearm with ecchymoses. swelling unchanged from yesterday NEUROLOGICAL: awake and alert, normal speech. moving extremities. Assessment/Plan Problem List: (1) Microcytic anemia ICD Codes: D50.9 - Iron deficiency anemia, unspecified Plan: ++microcytosis. --iron studies show elevated ferritin, low TIBC, low serum iron-->this is more consistent with anemia of chronic disease/inflammation --B12/folate showed no deficiency (2) Leukemia ICD Codes: C95.90 - Leukemia, unspecified not having achieved remission Plan: --patient considering her options, considering going back to [place] for treatment. 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 Will need to do mutation studies. Final path pending. -- induction chemo, Vidaza/Dacogen, or supportive care. We also discussed referral to tertiary center. With her advanced age, I do not recommend induction chemotherapy. Can consider Vidaza or Dacogen if she wants to try treatment. Assessment 76y/o female admitted with weakness, ARF, dehydration, metabolic acidosis. Hematology consulted for worsening thrombocytopenia. history of thyroid cancer treated 30 years ago. Crohn's disease. Thyroidectomy cholecystectomy bilateral oophorectomy. Hemorrhoidectomy. Plan 1. give 1 unit pRBC 2. monitor CBC 3. supportive care Attending Statement The exam, history, and the medical decision-making described in the above note were completed with the assistance of the mid-level provider. I reviewed and agree with the findings presented. I attest that I had a [id number] encounter with the patient on the same day, and personally performed and documented my assessment and findings in the medical record. Still has weakness. CBC stable. Will give her 1U PRBC to see if she would feel better. She is thinking about going back to [place] for treatment once she is able to travel. We discussed treatment options again and I recommend trying Vidaza/or Dacogen. She is undecided and waiting for input from her nephew . Problem Qualifiers (1) Leukemia: Qualified Codes: C92.00 - Acute myeloblastic leukemia, not having achieved remission Milana Chapin Nov 26, 2016 11:12 Nima Mclean MD Nov 26, 2016 15:44
[2016-11-26] MEDS: diphenhydrAMINE HCL 25 MG CAP PO PRN (14:37)
[2016-11-26] MEDS: ACETAMINOPHEN 325 MG TAB PO PRN (14:37)
--- NOTE | 2016-11-26 16:19 | HHI.PR ---
Subjective Remarks Hemoglobin slightly up at 8.2. Platelets and spontaneously increased to 50 today. White blood cell count at 10.3. Creatinine 0.75. Tachycardia is present today. No signs of bleeding. Objective Vital Signs Date Time Temp Pulse Resp B/P (MAP) Pulse Ox O2 Delivery O2 Flow Rate FiO2 11/26/16 15:45 97.7 101 20 94/59 95 11/26/16 15:27 96.9 104 20 108/53 94 11/26/16 12:55 98.4 113 21 123/58 (79) 93 11/26/16 08:54 94 Nasal Cannula 3.00 11/26/16 08:53 94 Nasal Cannula 4.00 11/26/16 08:00 97.6 104 20 134/64 (87) 94 Manual Cuff/Auscultation 11/26/16 04:00 96.1 100 18 116/59 (78) 95 11/26/16 00:00 96.0 99 17 118/63 (81) 94 11/25/16 22:18 94 Nasal Cannula 4.00 11/25/16 20:00 97.2 84 18 92/47 (62) 95 I/O 11/25/16 11/25/16 11/25/16 11/26/16 11/26/16 11/26/16 06:59 14:59 22:59 06:59 14:59 22:59 Intake Total 480 ml 1638 ml 680 ml 480 ml 15 ml Output Total 550 ml 750 ml Balance -70 ml 1638 ml 680 ml -270 ml 15 ml Intake Oral 480 ml 458 ml 680 ml 480 ml IV Total 1180 ml Blood Product IV Normal Saline Flush 15 ml Output Urine Total 550 ml 750 ml # Voids 3 # Bowel Movements 0 Result Diagram: 11/26/1692411/26/16924 Objective Remarks GENERAL: NAD, A&Ox3 HEAD: Normocephalic. NECK: Supple, trachea midline. No lymphadenopathy. EYES: No scleral icterus. No injection or drainage. CARDIOVASCULAR: Regular rate and rhythm without murmurs, gallops, or rubs. RESPIRATORY: Breath sounds equal bilaterally. No accessory muscle use. GASTROINTESTINAL: Abdomen soft, non-tender, nondistended. MUSCULOSKELETAL: No cyanosis, or edema. SKIN: Warm and dry. Petechia forearms. NEURO: No focal neurological deficitis. A/P Problem List: (1) Pneumonia ICD Code: J18.9 - Pneumonia, unspecified organism (2) Hypotension ICD Code: I95.9 - Hypotension, unspecified (3) Acute kidney injury ICD Code: N17.9 - Acute kidney failure, unspecified Status: Acute (4) Hyponatremia ICD Code: E87.1 - Hypo-osmolality and hyponatremia Status: Acute (5) Hypokalemia ICD Code: E87.6 - Hypokalemia Status: Acute (6) Dehydration ICD Code: E86.0 - Dehydration Status: Acute Assessment and Plan Assessment and plan 76-year-old female admitted with acute kidney injury and dehydration and Crohn' s disease flareup with diarrhea and abdominal pain. Leukemia is present based on bone marrow biopsy. Evidence suggests AML. Monitor for stability. Patient made become stable for discharge, to [place], if her labs remained stable over the next 2 days. Thrombocytopenia Recurrent (had occurred previously during this admit) Hematology following Continue steroids Bone marrow biopsy planned Patient is not on heparin Avoid blood thinners Exacerbation of Crohn's disease Diarrhea Clinically improved Continue steroids Follow for further improvement Acute kidney failure Possible ATN Acute kidney injury resolved Continue to monitor renal function Nephrology following Pneumonia Completed Levaquin Follow clinical symptoms. No white blood cell count Continue systemic steroids Possible sepsis Vancomycin ID following Hyponatremia Resolved Continue to monitor sodium levels Hypotension Monitor blood pressures Pressors if needed DVT prophylaxis SCDs Problem Qualifiers (1) Pneumonia: Gallito Reed MD Nov 26, 2016 16:19
[2016-11-26] MEDS ORDERED: PHARMACY ORDERED LAB ONE (20:45)
[2016-11-26] MEDS: VANCOMYCIN INJ 1,250 MG in SODIUM CHLOR 0.9% 250 ML INJ 250 ML IV SCH (23:59)
[2016-11-27] VITALS (8 sets, daily range): BP systolic 109–173; BP diastolic 53–81; PULSE 75–100; RESP 16–20; TEMP 96.5–98.8; O2SAT 92–97
[2016-11-27] MEDS: PIPERACIL-TAZO 4.5 GM PREMIX 100 ML IV SCH ×2 (03:45→10:25)
[2016-11-27] MEDS: CHLORHEXIDINE GLUCONATE 2 % 1 PACK (2 CLOTHS)(taper/protocol) TOPICAL SCH (04:00)
[2016-11-27] MEDS: LEVOTHYROXINE SODIUM 125 MCG TAB PO SCH (06:16)
[2016-11-27] MEDS: oxyCODONE/ACETAMINOPHEN 5 MG/325 MG TAB PO PRN ×4 (06:18→19:49)
[2016-11-27 08:51] LABS: HEMATOCRIT 26.1 % (35.0-46.0); MEAN CELL VOLUME 81.7 FL (80.0-100.0); MEAN CORPUSCULAR HEMOGLOBIN 27.3 PG (27.0-34.0); MEAN CORPUSCULAR HGB CONC 33.4 % (32.0-36.0); PLATELET COUNT 36 TH/MM3 (150-450); RED BLOOD COUNT 3.19 MIL/MM3 (4.00-5.30); RED CELL DISTRIBUTION WIDTH 19.9 % (11.6-17.2); WHITE BLOOD COUNT 8.5 TH/MM3 (4.0-11.0)
[2016-11-27 08:52] LABS: APTT (PATIENT) 31.7 SEC (24.3-30.1)
[2016-11-27 08:58] LABS: HEMO FLAGS AUTO DIFF
[2016-11-27] MEDS: SODIUM CHLORIDE 0.9% FLUSH 10 ML FLUSH IV FLUSH SCH ×2 (09:00→21:00)
[2016-11-27 09:07] LABS: ANION GAP 8 MEQ/L (5-15); AST (GOT) 10 U/L (15-37); BICARBONATE 20.3 MEQ/L (21.0-32.0); BLOOD UREA NITROGEN 13 MG/DL (7-18); CHLORIDE 112 MEQ/L (98-107); GLOMERULAR FILTRATION RATE 88 ML/MIN (>89); LDH SERUM 241 U/L (84-246); POTASSIUM 3.7 MEQ/L (3.5-5.1); SODIUM (NA) 140 MEQ/L (136-145)
[2016-11-27 09:11] LABS: ALKALINE PHOSPHATASE 55 U/L (45-117); ALT (GPT) 11 U/L (10-53); TOTAL BILIRUBIN ADULT 0.4 MG/DL (0.2-1.0)
--- NOTE | 2016-11-27 10:23 | PD.ONC.PN ---
Subjective Subjective Remarks Afebrile overnight. Patient resting in bed in [facility]. Patient anxious about discharge planning. Still trying to decide if she will stay here or return to [place]. Objective Data Date Time Temp Pulse Resp B/P (MAP) Pulse Ox O2 Delivery O2 Flow Rate FiO2 11/27/16 09:55 97 Nasal Cannula 3.00 11/27/16 08:00 98.8 97 18 111/56 (74) 92 11/27/16 04:00 97.1 99 17 119/58 (78) 96 11/27/16 00:00 97.0 97 17 109/59 (76) 96 11/26/16 21:40 Nasal Cannula 3.00 11/26/16 21:16 96 Nasal Cannula 3.00 11/26/16 20:00 97.6 95 17 130/67 (88) 95 11/26/16 15:45 97.7 101 20 94/59 95 11/26/16 15:27 96.9 104 20 108/53 94 11/26/16 12:55 98.4 113 21 123/58 (79) 93 Result Diagram: 11/27/16 0707 11/27/16 0707 Laboratory Results Laboratory Tests Test 11/26/16 22:29 11/27/16 07:07 Vancomycin Level Trough 9.0 MCG/ML White Blood Count 8.5 TH/MM3 Red Blood Count 3.19 MIL/MM3 Hemoglobin 8.7 GM/DL Hematocrit 26.1 % Mean Corpuscular Volume 81.7 FL Mean Corpuscular Hemoglobin 27.3 PG Mean Corpuscular Hemoglobin Concent 33.4 % Red Cell Distribution Width 19.9 % Platelet Count 36 TH/MM3 Mean Platelet Volume 11.7 FL CBC Comment AUTO DIFF Prothrombin Time 11.0 SEC Prothromb Time International Ratio 1.0 RATIO Activated Partial Thromboplast Time 31.7 SEC Fibrinogen 413 mg/dL Blood Urea Nitrogen 13 MG/DL Creatinine 0.65 MG/DL Random Glucose 78 MG/DL Total Protein 4.6 GM/DL Albumin 1.6 GM/DL Calcium Level 7.7 MG/DL Alkaline Phosphatase 55 U/L Aspartate Amino Transf (AST/SGOT) 10 U/L Alanine Aminotransferase (ALT/SGPT) 11 U/L Lactate Dehydrogenase 241 U/L Total Bilirubin 0.4 MG/DL Sodium Level 140 MEQ/L Potassium Level 3.7 MEQ/L Chloride Level 112 MEQ/L Carbon Dioxide Level 20.3 MEQ/L Anion Gap 8 MEQ/L Estimat Glomerular Filtration Rate 88 ML/MIN Administered Medications Medications (Trade) Dose Ordered Sig/Suyapa Route PRN Reason Start Time Stop Time Status Last Admin Dose Admin Sodium Chloride (NS Flush) 2 ml BID IV FLUSH 11/09/16 21:00 11/22/16 21:00 Sennosides (Senokot) 17.2 mg Q12H PRN PO MODERATE - SEVERE CONSTIPATION 11/09/16 13:30 11/25/16 08:28 Pantoprazole Sodium (Protonix) 20 mg DAILY PO 11/10/16 09:00 11/26/16 08:48 Diphenhydramine HCl (Benadryl) 25 mg Q6H PRN PO ITCHING 11/09/16 16:15 11/21/16 20:44 Acetaminophen (Tylenol) 650 mg Q4H PRN PO HEADACHE 11/09/16 22:30 11/22/16 11:24 Ondansetron HCl (Zofran Inj) 4 mg Q6HR PRN IV PUSH nausea 11/09/16 23:30 11/23/16 04:01 Levothyroxine Sodium (Synthroid) 112 mcg MoWeFr@0600 PO 11/12/16 07:30 11/26/16 06:34 Levothyroxine Sodium (Synthroid) 25 mcg MoWeFr@0600 PO 11/12/16 07:30 11/26/16 05:46 Levothyroxine Sodium (Synthroid) 125 mcg SuTuThSa@0600 PO 11/13/16 06:00 11/27/16 06:16 Potassium Chloride/Sodium Chloride 1,000 ml @ 100 mls/hr Q10H IV 11/22/16 13:15 11/26/16 08:47 Diphenhydramine HCl (Benadryl) 25 mg Q4H PRN PO SEE LABEL COMMENTS 11/22/16 15:30 11/26/16 14:37 Oxycodone/ Acetaminophen (Percocet 5-325 Mg) 1 tab Q4H PRN PO PAIN SCALE 1 TO 4 11/22/16 18:00 11/26/16 21:42 Oxycodone/ Acetaminophen (Percocet 5-325 Mg) 2 tab Q4H PRN PO PAIN SCALE 5 TO 10 11/22/16 18:00 11/27/16 06:18 Miscellaneous Information Patient in critical care unit? Ass... Q361D .XX 11/22/16 21:30 11/22/16 21:30 Hydromorphone HCl (Dilaudid Pf Inj) 1 mg Q4H PRN IV PUSH Breakthrough Pain 11/23/16 09:00 11/23/16 20:24 Vancomycin HCl 1250 mg/Sodium Chloride 262.5 ml @ 250 mls/hr Q24H IV 11/23/16 21:00 11/26/16 23:59 Piperacillin Sod/ Tazobactam Sod 100 ml @ 200 mls/hr Q8H IV 11/27/16 03:00 11/27/16 03:45 Objective Remarks GENERAL: Elderly female, sitting up in bed in [facility]. SKIN: Warm and dry. HEAD: Normocephalic. EYES: No injection or drainage. NECK: Supple, trachea midline. CARDIOVASCULAR: +S1/S2, tachy RESPIRATORY: anterior galindo clear. on 3L O2 via NC GASTROINTESTINAL: Abdomen soft, non-tender, nondistended. EXTREMITIES: No cyanosis. bruising/left arm NEUROLOGICAL: aox3. normal speech. Assessment/Plan Problem List: (1) Microcytic anemia ICD Codes: D50.9 - Iron deficiency anemia, unspecified Plan: ++microcytosis. --iron studies show elevated ferritin, low TIBC, low serum iron-->this is more consistent with anemia of chronic disease/inflammation --B12/folate showed no deficiency (2) Leukemia ICD Codes: C95.90 - Leukemia, unspecified not having achieved remission Plan: --patient considering her options, considering going back to [place] for treatment. 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 Will need to do mutation studies. Final path pending. -- induction chemo, Vidaza/Dacogen, or supportive care. We also discussed referral to tertiary center. With her advanced age, I do not recommend induction chemotherapy. Can consider Vidaza or Dacogen if she wants to try treatment. Assessment 76y/o female admitted with weakness, ARF, dehydration, metabolic acidosis. Hematology consulted for worsening thrombocytopenia. history of thyroid cancer treated 30 years ago. Crohn's disease. Thyroidectomy cholecystectomy bilateral oophorectomy. Hemorrhoidectomy. Plan 1. monitor CBC 2. await patient decision to return to [place] or remain here for treatment. Attending Statement The exam, history, and the medical decision-making described in the above note were completed with the assistance of the mid-level provider. I reviewed and agree with the findings presented. I attest that I had a [id number] encounter with the patient on the same day, and personally performed and documented my assessment and findings in the medical record. Feeling better after transfusion. Extensive discussion with pt and family. They plan to bring her to [place]. I have also discussed with the oncologist at [facility]. Their questions answered. Problem Qualifiers (1) Leukemia: Qualified Codes: C92.00 - Acute myeloblastic leukemia, not having achieved remission Milana Chapin Nov 27, 2016 10:23 Nima Mclean MD Nov 27, 2016 18:19
[2016-11-27] MEDS: PANTOPRAZOLE SOD 20 MG DELAYED RELEASE TAB PO SCH (10:24)
[2016-11-27 11:34] LABS: ACANTHOCYTES OCC (NORMAL); BANDS 9 % (0-6); BASOPHILS 1 % (0-2); BLASTS 4 % (0-0); EOSINOPHILS 3 % (0-4); KERATOCYTES 1+ (NORMAL); METAMYELOCYTES 6 % (0-1); NEUTROPHIL # MANUAL DIFF 5.4 TH/MM3 (1.8-7.7); OVALOCYTES 1+ (NORMAL); PLATELET ESTIMATE SMEAR LOW (NORMAL); PLATELET MORPHOLOGY ENLARGED (NORMAL); POLYS (SEG NEUTROPHILS) 48 % (16-70); SCAN/DIFF FINAL DIFF MANUAL; WBC DIFF SAMPLE 100
--- NOTE | 2016-11-27 13:04 | HHI.PR ---
Subjective Remarks Evidence of 8.7 today. This is posttransfusion and would have been expected to increase to about 9.2. There may be a relative decline in her hemoglobin. Her platelets have also declined from 50 to 36 today. Slight increase in energy. Respiratory status is unchanged. Objective Vital Signs Date Time Temp Pulse Resp B/P (MAP) Pulse Ox O2 Delivery O2 Flow Rate FiO2 11/27/16 12:00 96.5 89 18 114/53 (73) 95 11/27/16 10:25 97 Nasal Cannula 3.00 11/27/16 09:55 97 Nasal Cannula 3.00 11/27/16 08:00 98.8 97 18 111/56 (74) 92 11/27/16 04:00 97.1 99 17 119/58 (78) 96 11/27/16 00:00 97.0 97 17 109/59 (76) 96 11/26/16 21:40 Nasal Cannula 3.00 11/26/16 21:16 96 Nasal Cannula 3.00 11/26/16 20:00 97.6 95 17 130/67 (88) 95 11/26/16 15:45 97.7 101 20 94/59 95 11/26/16 15:27 96.9 104 20 108/53 94 I/O 11/26/16 11/26/16 11/26/16 11/27/16 11/27/16 11/27/16 07:00 15:00 23:00 07:00 15:00 23:00 Intake Total 480 ml 670 ml 100 ml Output Total 750 ml Balance -270 ml 670 ml 100 ml Intake Oral 480 ml 240 ml IV Total 100 ml Packed Cells 400 ml Blood Product IV Normal Saline Flush 30 ml Output Urine Total 750 ml # Voids 5 1 # Bowel Movements 4 1 Result Diagram: 11/27/1670611/27/1607 Objective Remarks GENERAL: NAD, A&Ox3 HEAD: Normocephalic. NECK: Supple, trachea midline. No lymphadenopathy. EYES: No scleral icterus. No injection or drainage. CARDIOVASCULAR: Regular rate and rhythm without murmurs, gallops, or rubs. RESPIRATORY: Breath sounds equal bilaterally. No accessory muscle use. GASTROINTESTINAL: Abdomen soft, non-tender, nondistended. MUSCULOSKELETAL: No cyanosis, or edema. SKIN: Warm and dry. Petechia forearms. NEURO: No focal neurological deficitis. A/P Problem List: (1) Pneumonia ICD Code: J18.9 - Pneumonia, unspecified organism (2) Hypotension ICD Code: I95.9 - Hypotension, unspecified (3) Acute kidney injury ICD Code: N17.9 - Acute kidney failure, unspecified Status: Acute (4) Hyponatremia ICD Code: E87.1 - Hypo-osmolality and hyponatremia Status: Acute (5) Hypokalemia ICD Code: E87.6 - Hypokalemia Status: Acute (6) Dehydration ICD Code: E86.0 - Dehydration Status: Acute Assessment and Plan Assessment and plan 76-year-old female admitted with acute kidney injury and dehydration and Crohn' s disease flareup with diarrhea and abdominal pain. Leukemia is present based on bone marrow biopsy. Evidence suggests AML. Labs reviewed today. Patient not showing stability today. Possible downward trend in hemoglobin and platelets. Follow-up levels of hemoglobin and platelets tomorrow. Labs ordered. Thrombocytopenia Recurrent (had occurred previously during this admit) Hematology following Continue steroids Bone marrow biopsy planned Patient is not on heparin Avoid blood thinners Exacerbation of Crohn's disease Diarrhea Clinically improved Continue steroids Follow for further improvement Acute kidney failure Possible ATN Acute kidney injury resolved Continue to monitor renal function Nephrology following Pneumonia Completed Levaquin Follow clinical symptoms. No white blood cell count Continue systemic steroids Possible sepsis Vancomycin ID following Hyponatremia Resolved Continue to monitor sodium levels Hypotension Monitor blood pressures Pressors if needed DVT prophylaxis SCDs Problem Qualifiers (1) Pneumonia: Gallito Reed MD Nov 27, 2016 13:04
--- NOTE | 2016-11-27 14:12 | EKG ---
Date Performed: 11/26/2016 Time Performed: 12:41:59 PTAGE: 76 years EKG: SINUS TACHYCARDIA WITH OCCASIONAL VENTRICULAR PREMATURE COMPLEXES WITH OCCASIONAL SUPRAVENT RICULAR PREMATURE COMPLEXES NONSPECIFIC T-WAVE ABNORMALITY ABNORMAL RHYTHM ECG Compared to prior trac ing no significant change PREVIOUS TRACING : 11/09/2016 11.48 DOCTOR: Jone Kay Interpretating Date/Time 11/27/2016 14:09:16
--- NOTE | 2016-11-27 16:54 | RADRPT ---
EXAM DATE/TIME: 11/27/2016 16:13 [facility] COMPARISON: No previous studies available for comparison. INDICATIONS : Left arm swelling. MEDICAL HISTORY : Carcinoma, thyroid. Crohn's disease. Hypothyroidism. Dyspnea. Anticoagulant therapy, Aspirin. SURGICAL HISTORY : Cholecystectomy. Hysterectomy. Tonsillectomy. Adenoidectomy. Thyroidectomy. Ovarian cysts removal. ENCOUNTER: Subsequent ACUITY: 1 week PAIN SCORE: 5/10 LOCATION: Left arm. FINDINGS: There is spontaneous flow documented in the brachial, basilic, cephalic, axillary, and subclavian vei ns. The vessels are compressible and augmentation response is documented. No filling defects are se en. The flow is phasic with respiration. Direction of flow in the jugular vein is caudal. CONCLUSION: Normal examination. Vivek Zhao MD on November 27, 2016 at 16:52 Board Certified Radiologist. This report was verified electronically.
--- NOTE | 2016-11-27 18:57 | HHI.IDPN ---
Subjective Subjective Remarks BM bx showed leukemia, add'l studies P Pt, fa,boubacar are planning to go to [place] for tretmetn NO fever No new c/o Antibiotics vancomycin zosyn Allergies: Coded Allergies: chloramphenicol (Unverified Allergy, Severe, 11/09/16) codeine (Unverified Allergy, Severe, 11/09/16) erythromycin base (Unverified Allergy, Unknown, 11/09/16) Objective . Vital Signs Date Time Temp Pulse Resp B/P (MAP) Pulse Ox O2 Delivery O2 Flow Rate FiO2 11/27/16 16:00 97.6 75 16 111/63 (79) 94 11/27/16 12:00 96.5 89 18 114/53 (73) 95 11/27/16 10:25 97 Nasal Cannula 3.00 11/27/16 09:55 97 Nasal Cannula 3.00 11/27/16 08:00 98.8 97 18 111/56 (74) 92 11/27/16 04:00 97.1 99 17 119/58 (78) 96 11/27/16 00:00 97.0 97 17 109/59 (76) 96 11/26/16 21:40 Nasal Cannula 3.00 11/26/16 21:16 96 Nasal Cannula 3.00 11/26/16 20:00 97.6 95 17 130/67 (88) 95 11/27/16 11/27/16 11/28/16 15:00 23:00 07:00 Intake Total 1060 ml Output Total 800 ml 400 ml Balance 260 ml -400 ml Intake Oral 960 ml IV Total 100 ml Output Urine Total 800 ml 400 ml # Bowel Movements 2 1 . Laboratory Tests Test 11/26/16 09:25 11/27/16 07:07 White Blood Count 10.3 TH/MM3 8.5 TH/MM3 Red Blood Count 3.08 MIL/MM3 3.19 MIL/MM3 Hemoglobin 8.2 GM/DL 8.7 GM/DL Hematocrit 25.2 % 26.1 % Mean Corpuscular Volume 81.9 FL 81.7 FL Mean Corpuscular Hemoglobin 26.5 PG 27.3 PG Mean Corpuscular Hemoglobin Concent 32.3 % 33.4 % Red Cell Distribution Width 20.5 % 19.9 % Platelet Count 50 TH/MM3 36 TH/MM3 Mean Platelet Volume 11.9 FL 11.7 FL CBC Comment AUTO DIFF AUTO DIFF Differential Total Cells Counted 100 100 Neutrophils % (Manual) 56 % 48 % Band Neutrophils % 6 % 9 % Lymphocytes % 14 % 17 % Monocytes % 10 % 12 % Eosinophils % 2 % 3 % Neutrophils # (Manual) 7.2 TH/MM3 5.4 TH/MM3 Metamyelocytes 1 % 6 % Myelocytes 7 % Differential Comment FINAL DIFF MANUAL FINAL DIFF MANUAL Blastocytes 4 % 4 % Platelet Estimate LOW LOW Platelet Morphology Comment ENLARGED ENLARGED Ovalocytes 1+ 1+ Acanthocytes OCC OCC Keratocytes 1+ 1+ Basophils % 1 % Laboratory Tests Test 11/26/16 09:25 11/27/16 07:07 Blood Urea Nitrogen 14 MG/DL 13 MG/DL Creatinine 0.75 MG/DL 0.65 MG/DL Random Glucose 90 MG/DL 78 MG/DL Total Protein 5.0 GM/DL 4.6 GM/DL Albumin 1.6 GM/DL 1.6 GM/DL Calcium Level 7.7 MG/DL 7.7 MG/DL Alkaline Phosphatase 52 U/L 55 U/L Aspartate Amino Transf (AST/SGOT) 10 U/L 10 U/L Alanine Aminotransferase (ALT/SGPT) 13 U/L 11 U/L Lactate Dehydrogenase 261 U/L 241 U/L Total Bilirubin 0.3 MG/DL 0.4 MG/DL Sodium Level 139 MEQ/L 140 MEQ/L Potassium Level 4.0 MEQ/L 3.7 MEQ/L Chloride Level 112 MEQ/L 112 MEQ/L Carbon Dioxide Level 19.8 MEQ/L 20.3 MEQ/L Anion Gap 7 MEQ/L 8 MEQ/L Estimat Glomerular Filtration Rate 75 ML/MIN 88 ML/MIN Imaging Last Impressions Upper Extremity Ultrasound 11/27/16 0000 Signed Impressions: Service Date/Time: Sunday, November 27, 2016 16:13 - CONCLUSION: Normal examination. Vivek Zhao MD Bone Biopsy CT 11/23/16 1053 Signed Impressions: Service Date/Time: Wednesday, November 23, 2016 16:22 - CONCLUSION: 1. Uncomplicated CT guided bone marrow aspirate. 2. Uncomplicated CT guided bone marrow biopsy. Cameron Bassett MD Lower Extremity Ultrasound 11/21/16 0000 Signed Impressions: Service Date/Time: Monday, November 21, 2016 14:24 - CONCLUSION: No evidence of deep venous thrombosis within the lower extremities. Cameron Bassett MD Chest X-Ray 11/21/16 0000 Signed Impressions: Service Date/Time: Monday, November 21, 2016 10:23 - CONCLUSION: No significant change compared to 11/15/2016. Cameron Bassett MD CT Angiography 11/21/16 0000 Signed Impressions: Service Date/Time: Monday, November 21, 2016 16:20 - CONCLUSION: Deterioration in appearance the lungs with increasing bibasilar clinical changes and mild interstitial edema. Negative for central pulmonary emboli. Goldy Newman MD FACR Head CT 11/12/16 0000 Signed Impressions: Service Date/Time: Saturday, November 12, 2016 15:34 - CONCLUSION: Negative for an acute process. Goldy Newman MD FACR Renal Ultrasound 11/11/16 0000 Signed Impressions: Service Date/Time: Friday, November 11, 2016 15:54 - CONCLUSION: Unremarkable renal ultrasound. There is no hydronephrosis. Goldy Newman MD FACR Abdomen/Pelvis CT 11/10/16 Signed Impressions: Service Date/Time: Thursday, November 10, 2016 11:41 - CONCLUSION: I don't see an abscess or free fluid to suggest an exacerbation of Crohn's disease. There is no asymmetrical bowel dilatation. Goldy Newman MD FACR Physical Exam GENERAL: This is in NAD SKIN: No rashes, +very large BUE ecchymoses especially large in L foreatrm at attempted IV site . Cool and dry. HEAD: Atraumatic. Normocephalic. No temporal or scalp tenderness. EYES: Pupils equal round and reactive. Extraocular motions intact. No scleral icterus. No injection or drainage. ENT: Nose without bleeding, purulent drainage or septal hematoma. oral mucosae moist NECK: Trachea midline. No JVD or lymphadenopathy. Supple, nontender, no meningeal signs. CARDIOVASCULAR: Regular rate and rhythm without murmurs, gallops, or rubs. RESPIRATORY: Clear to auscultation. Breath sounds decreased bilaterally. No wheezes, or rhonchi. GASTROINTESTINAL: Abdomen soft, non-tender, nondistended. No hepato-splenomegaly , or palpable masses. No guarding. : no suprapubic tenderness to palpation MUSCULOSKELETAL: Extremities without clubbing, cyanosis, or edema. No joint tenderness, effusion, or edema noted. Left calf tenderness. NEUROLOGICAL: Awake and alert. Cranial nerves II through XII intact. Motor and sensory grossly within normal limits. Normal seech PSYCH: calm and coopertive Assessment & Plan Remarks Acute leukemia, newly diagnosed Fever, low grade - resolved - all clx are negative Interstitial infilatrates, doubt PNA ARF - resolved dc zaida honeycutt will sign off, please re-consult if any further ID issues tay RN dw pt, @ b/s Radha Kay MD Nov 27, 2016 18:57
[2016-11-28] VITALS (10 sets, daily range): BP systolic 92–143; BP diastolic 49–73; PULSE 96–112; RESP 18–20; TEMP 97.4–99.8; O2SAT 92–96
[2016-11-28] MEDS: oxyCODONE/ACETAMINOPHEN 5 MG/325 MG TAB PO PRN ×3 (03:56→18:51)
[2016-11-28] MEDS: LEVOTHYROXINE SODIUM 112 MCG TAB PO SCH (06:35)
[2016-11-28] MEDS: LEVOTHYROXINE SODIUM 25 MCG TAB PO SCH (06:35)
[2016-11-28] MEDS: SODIUM CHLORIDE 0.9% FLUSH 10 ML FLUSH IV FLUSH SCH ×2 (09:00→21:00)
[2016-11-28 09:27] LABS: MEAN CELL VOLUME 81.4 FL (80.0-100.0); MEAN CORPUSCULAR HEMOGLOBIN 27.1 PG (27.0-34.0); MEAN CORPUSCULAR HGB CONC 33.3 % (32.0-36.0); PLATELET COUNT 35 TH/MM3 (150-450); RED BLOOD COUNT 3.57 MIL/MM3 (4.00-5.30); RED CELL DISTRIBUTION WIDTH 19.5 % (11.6-17.2); WHITE BLOOD COUNT 9.3 TH/MM3 (4.0-11.0)
[2016-11-28 09:53] LABS: ANION GAP 9 MEQ/L (5-15); AST (GOT) 12 U/L (15-37); BICARBONATE 22.4 MEQ/L (21.0-32.0); BLOOD UREA NITROGEN 10 MG/DL (7-18); CHLORIDE 107 MEQ/L (98-107); GLOMERULAR FILTRATION RATE 101 ML/MIN (>89); POTASSIUM 3.2 MEQ/L (3.5-5.1); SODIUM (NA) 138 MEQ/L (136-145)
[2016-11-28 09:54] LABS: ALT (GPT) 12 U/L (10-53)
[2016-11-28 09:56] LABS: ALKALINE PHOSPHATASE 62 U/L (45-117); LDH SERUM 274 U/L (84-246); TOTAL BILIRUBIN ADULT 0.4 MG/DL (0.2-1.0)
[2016-11-28 10:01] LABS: HEMO FLAGS AUTO DIFF
[2016-11-28] MEDS: PANTOPRAZOLE SOD 20 MG DELAYED RELEASE TAB PO SCH (10:40)
[2016-11-28] MEDS: ONDANSETRON HCL 4 MG/2 ML VIAL IV PUSH PRN (10:43)
[2016-11-28] MEDS ORDERED: SODIUM CHLOR 0.9% 250 ML INJ 250 ML IV ONE (11:00)
[2016-11-28] MEDS ORDERED: diphenhydrAMINE HCL 25 MG CAP PO PRN (11:00)
--- NOTE | 2016-11-28 11:10 | PD.ONC.PN ---
Subjective Subjective Remarks Afebrile overnight. Complaining of swelling in her right arm. Has decided to return to [place], nervous about the trip. Objective Data Date Time Temp Pulse Resp B/P (MAP) Pulse Ox O2 Delivery O2 Flow Rate FiO2 11/28/16 09:54 92 Nasal Cannula 2.00 11/28/16 08:00 98.0 100 20 138/71 (93) 94 11/28/16 04:00 99.0 101 20 130/73 (92) 92 11/28/16 00:00 97.4 96 18 126/61 (82) 93 11/27/16 21:35 100 20 118/55 (76) 92 11/27/16 20:56 Nasal Cannula 3.00 11/27/16 20:05 98.1 99 18 173/81 (111) 95 11/27/16 19:50 Nasal Cannula 3.00 11/27/16 16:00 97.6 75 16 111/63 (79) 94 11/27/16 12:00 96.5 89 18 114/53 (73) 95 11/28/16 11/28/16 11/28/16 07:00 15:00 23:00 Intake Total 240 ml Output Total 700 ml Balance -460 ml Result Diagram: 11/28/16 0758 11/28/16 0758 Laboratory Results Laboratory Tests Test 11/28/16 07:58 White Blood Count 9.3 TH/MM3 Red Blood Count 3.57 MIL/MM3 Hemoglobin 9.7 GM/DL Hematocrit 29.0 % Mean Corpuscular Volume 81.4 FL Mean Corpuscular Hemoglobin 27.1 PG Mean Corpuscular Hemoglobin Concent 33.3 % Red Cell Distribution Width 19.5 % Platelet Count 35 TH/MM3 Mean Platelet Volume 11.7 FL CBC Comment AUTO DIFF Blood Urea Nitrogen 10 MG/DL Creatinine 0.58 MG/DL Random Glucose 77 MG/DL Total Protein 5.2 GM/DL Albumin 1.6 GM/DL Calcium Level 7.9 MG/DL Alkaline Phosphatase 62 U/L Aspartate Amino Transf (AST/SGOT) 12 U/L Alanine Aminotransferase (ALT/SGPT) 12 U/L Lactate Dehydrogenase 274 U/L Total Bilirubin 0.4 MG/DL Sodium Level 138 MEQ/L Potassium Level 3.2 MEQ/L Chloride Level 107 MEQ/L Carbon Dioxide Level 22.4 MEQ/L Anion Gap 9 MEQ/L Estimat Glomerular Filtration Rate 101 ML/MIN Administered Medications Medications (Trade) Dose Ordered Sig/Suyapa Route PRN Reason Start Time Stop Time Status Last Admin Dose Admin Sodium Chloride (NS Flush) 2 ml BID IV FLUSH 11/09/16 21:00 11/22/16 21:00 Sennosides (Senokot) 17.2 mg Q12H PRN PO MODERATE - SEVERE CONSTIPATION 11/09/16 13:30 11/25/16 08:28 Pantoprazole Sodium (Protonix) 20 mg DAILY PO 11/10/16 09:00 11/28/16 10:40 Diphenhydramine HCl (Benadryl) 25 mg Q6H PRN PO ITCHING 11/09/16 16:15 11/21/16 20:44 Acetaminophen (Tylenol) 650 mg Q4H PRN PO HEADACHE 11/09/16 22:30 11/22/16 11:24 Ondansetron HCl (Zofran Inj) 4 mg Q6HR PRN IV PUSH nausea 11/09/16 23:30 11/28/16 10:43 Levothyroxine Sodium (Synthroid) 112 mcg MoWeFr@0600 PO 11/12/16 07:30 11/28/16 06:35 Levothyroxine Sodium (Synthroid) 25 mcg MoWeFr@0600 PO 11/12/16 07:30 11/28/16 06:35 Levothyroxine Sodium (Synthroid) 125 mcg SuTuThSa@0600 PO 11/13/16 06:00 11/27/16 06:16 Potassium Chloride/Sodium Chloride 1,000 ml @ 100 mls/hr Q10H IV 11/22/16 13:15 11/26/16 08:47 Diphenhydramine HCl (Benadryl) 25 mg Q4H PRN PO SEE LABEL COMMENTS 11/22/16 15:30 11/26/16 14:37 Oxycodone/ Acetaminophen (Percocet 5-325 Mg) 1 tab Q4H PRN PO PAIN SCALE 1 TO 5 11/22/16 18:00 11/28/16 10:35 Oxycodone/ Acetaminophen (Percocet 5-325 Mg) 2 tab Q4H PRN PO PAIN SCALE 6 TO 10 11/22/16 18:00 9/19/17 19:49 Miscellaneous Information Patient in critical care unit? Ass... Q361D .XX 11/22/16 21:30 11/22/16 21:30 Hydromorphone HCl (Dilaudid Pf Inj) 1 mg Q4H PRN IV PUSH Breakthrough Pain 11/23/16 09:00 11/23/16 20:24 Objective Remarks GENERAL: Elderly female, upright in bed, appears anxious. SKIN: Warm and dry. HEAD: Normocephalic. EYES: No injection or drainage. NECK: Supple, trachea midline. CARDIOVASCULAR: +S1/S2, tachy RESPIRATORY: occasional rhonchi. on 2L O2 via [place] GASTROINTESTINAL: Abdomen soft, non-tender, nondistended. EXTREMITIES: No cyanosis. bruising noted on both arms. RUE with some edema. NEUROLOGICAL: awake and alert, normal speech. moving all extremities. Assessment/Plan Problem List: (1) Leukemia ICD Codes: C95.90 - Leukemia, unspecified not having achieved remission Plan: --patient planning to return to [place] for treatment. 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 Will need to do mutation studies. Final path pending. (2) Microcytic anemia ICD Codes: D50.9 - Iron deficiency anemia, unspecified Plan: ++microcytosis. --iron studies show elevated ferritin, low TIBC, low serum iron-->this is more consistent with anemia of chronic disease/inflammation --B12/folate showed no deficiency Assessment 76y/o female admitted with weakness, ARF, dehydration, metabolic acidosis. Hematology consulted for worsening thrombocytopenia. history of thyroid cancer treated 30 years ago. Crohn's disease. Thyroidectomy cholecystectomy bilateral oophorectomy. Hemorrhoidectomy. Plan 1. give 1 unit platelets in preparation for discharge tomorrow 2. patient planning for return to [place] for treatment there. Family is working on arranging transport to [place]. 3. obtain u/s RUE for edema. Attending Statement The exam, history, and the medical decision-making described in the above note were completed with the assistance of the mid-level provider. I reviewed and agree with the findings presented. I attest that I had a [id number] encounter with the patient on the same day, and personally performed and documented my assessment and findings in the medical record. R arm pain better. Feeling stronger. Family plan to drive her to [place] tomorrow. Will give her transfusion today in anticipation of her travel. 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 I have discussed with at [facility] who will be treating pt when she gets up there. Problem Qualifiers (1) Leukemia: Qualified Codes: C92.00 - Acute myeloblastic leukemia, not having achieved remission Milana Chapin Nov 28, 2016 11:10 Nima Mclean MD Nov 28, 2016 16:29
[2016-11-28] MEDS: diphenhydrAMINE HCL 25 MG CAP PO PRN (12:30)
[2016-11-28] MEDS: ACETAMINOPHEN 325 MG TAB PO PRN (12:30)
[2016-11-28 12:43] LABS: BANDS 10 % (0-6); BASOPHILS 1 % (0-2); BLASTS 7 % (0-0); EOSINOPHILS 5 % (0-4); MYELOCYTES 1 % (0-0); NEUTROPHIL # MANUAL DIFF 5.2 TH/MM3 (1.8-7.7); POLYS (SEG NEUTROPHILS) 45 % (16-70); SCAN/DIFF FINAL DIFF MANUAL; WBC DIFF SAMPLE 100
[2016-11-28 12:44] LABS: PLATELET ESTIMATE SMEAR LOW (NORMAL); PLATELET MORPHOLOGY NORMAL (NORMAL)
--- NOTE | 2016-11-28 12:51 | RADRPT ---
EXAM DATE/TIME: 11/28/2016 12:05 [facility] COMPARISON: No previous studies available for comparison. INDICATIONS : Right arm pain and swelling. MEDICAL HISTORY : Carcinoma, thyroid. Crohn's disease. Anticoagulant therapy, aspirin. Dyspnea. Acute kidney injury. Bl ood transfusions. SURGICAL HISTORY : Cholecystectomy. Hysterectomy. Tonsillectomy. Adenoidectomy. Thyroidectomy. Ovarian cyst removal. ENCOUNTER: Initial ACUITY: 3 days PAIN SCORE: 5/10 LOCATION: Right arm. FINDINGS: There are abnormal intraluminal echoes within the mid and distal cephalic vein expanding the lumen. T his vessel demonstrates lack of normal compression and blood flow. The remaining veins of the right upper extremity including the internal jugular vein are patent. CONCLUSION: 1. There is occlusive thrombus within the right mid and distal cephalic vein, representing superficia l thrombosis. 2. No DVT is identified in the right upper extremity. Kwabena Hartmann MD on November 28, 2016 at 12:48 Board Certified Radiologist. This report was verified electronically.
--- NOTE | 2016-11-28 13:31 | HHI.PR ---
Subjective Remarks Hemoglobin of 9.7 today, which is improved. Platelets have dropped to 35. Platelet transfusion plan prior to discharge. Patient will discharge, likely, on the morning of 11/30/16. The plan right now is to transfer via medical transport airline. Objective Vital Signs Date Time Temp Pulse Resp B/P (MAP) Pulse Ox O2 Delivery O2 Flow Rate FiO2 11/28/16 12:00 99.8 96 20 97/54 (68) 93 11/28/16 09:54 92 Nasal Cannula 2.00 11/28/16 08:00 98.0 100 20 138/71 (93) 94 11/28/16 04:00 99.0 101 20 130/73 (92) 92 11/28/16 00:00 97.4 96 18 126/61 (82) 93 11/27/16 21:35 100 20 118/55 (76) 92 11/27/16 20:56 Nasal Cannula 3.00 11/27/16 20:05 98.1 99 18 173/81 (111) 95 11/27/16 19:50 Nasal Cannula 3.00 11/27/16 16:00 97.6 75 16 111/63 (79) 94 I/O 11/27/16 11/27/16 11/27/16 11/28/16 11/28/16 11/28/16 07:00 15:00 23:00 07:00 15:00 23:00 Intake Total 1593 ml 240 ml Output Total 800 ml 400 ml 700 ml Balance 793 ml -400 ml -460 ml Intake Oral 960 ml 240 ml IV Total 633 ml Output Urine Total 800 ml 400 ml 700 ml # Voids 1 # Bowel Movements 1 2 1 Result Diagram: 11/28/16 0758 11/28/16 0758 Objective Remarks GENERAL: NAD, A&Ox3 HEAD: Normocephalic. NECK: Supple, trachea midline. No lymphadenopathy. EYES: No scleral icterus. No injection or drainage. CARDIOVASCULAR: Regular rate and rhythm without murmurs, gallops, or rubs. RESPIRATORY: Breath sounds equal bilaterally. No accessory muscle use. GASTROINTESTINAL: Abdomen soft, non-tender, nondistended. MUSCULOSKELETAL: No cyanosis, or edema. SKIN: Warm and dry. Petechia forearms. NEURO: No focal neurological deficitis. A/P Problem List: (1) Pneumonia ICD Code: J18.9 - Pneumonia, unspecified organism (2) Hypotension ICD Code: I95.9 - Hypotension, unspecified (3) Acute kidney injury ICD Code: N17.9 - Acute kidney failure, unspecified Status: Acute (4) Hyponatremia ICD Code: E87.1 - Hypo-osmolality and hyponatremia Status: Acute (5) Hypokalemia ICD Code: E87.6 - Hypokalemia Status: Acute (6) Dehydration ICD Code: E86.0 - Dehydration Status: Acute Assessment and Plan Assessment and plan 76-year-old female admitted with acute kidney injury and dehydration and Crohn' s disease flareup with diarrhea and abdominal pain. Leukemia is present based on bone marrow biopsy. Evidence suggests AML. Labs reviewed today. Hemoglobin is improved today at 9.7. Platelets worsened from 36-35. Platelet transfusion planned. Continue to follow CBC and BMP. Labs ordered. Thrombocytopenia Recurrent (had occurred previously during this admit) Hematology following Continue steroids Bone marrow biopsy planned Patient is not on heparin Avoid blood thinners Exacerbation of Crohn's disease Diarrhea Clinically improved Continue steroids Follow for further improvement Acute kidney failure Possible ATN Acute kidney injury resolved Continue to monitor renal function Nephrology following Pneumonia Completed Levaquin Follow clinical symptoms. No white blood cell count Continue systemic steroids Possible sepsis Vancomycin ID following Hyponatremia Resolved Continue to monitor sodium levels Hypotension Monitor blood pressures Pressors if needed DVT prophylaxis SCDs Problem Qualifiers (1) Pneumonia: Gallito Reed MD Nov 28, 2016 13:31
[2016-11-28] MEDS: NS + KCL 40 MEQ INJ 1,000 ML IV SCH ×2 (16:04→19:15)
[2016-11-28] MEDS ORDERED: PHARMACY ORDERED LAB ONE (20:45)
[2016-11-29] VITALS (13 sets, daily range): BP systolic 90–142; BP diastolic 44–86; PULSE 98–112; RESP 17–22; TEMP 98.4–101; O2SAT 92–98
[2016-11-29] MEDS: oxyCODONE/ACETAMINOPHEN 5 MG/325 MG TAB PO PRN ×5 (01:36→22:46)
[2016-11-29] MEDS: NS + KCL 40 MEQ INJ 1,000 ML IV SCH ×2 (01:50→22:47)
[2016-11-29] MEDS: LEVOTHYROXINE SODIUM 125 MCG TAB PO SCH (06:34)
[2016-11-29 06:53] LABS: HEMATOCRIT 25.4 % (35.0-46.0); MEAN CELL VOLUME 81.6 FL (80.0-100.0); MEAN CORPUSCULAR HEMOGLOBIN 27.1 PG (27.0-34.0); MEAN CORPUSCULAR HGB CONC 33.2 % (32.0-36.0); PLATELET COUNT 36 TH/MM3 (150-450); RED BLOOD COUNT 3.12 MIL/MM3 (4.00-5.30); RED CELL DISTRIBUTION WIDTH 19.7 % (11.6-17.2); WHITE BLOOD COUNT 8.3 TH/MM3 (4.0-11.0)
[2016-11-29 07:01] LABS: HEMO FLAGS AUTO DIFF
[2016-11-29 07:09] LABS: ANION GAP 8 MEQ/L (5-15); AST (GOT) 10 U/L (15-37); BICARBONATE 25.1 MEQ/L (21.0-32.0); BLOOD UREA NITROGEN 8 MG/DL (7-18); CHLORIDE 109 MEQ/L (98-107); GLOMERULAR FILTRATION RATE 107 ML/MIN (>89); SODIUM (NA) 142 MEQ/L (136-145)
[2016-11-29 07:10] LABS: POTASSIUM 2.9 MEQ/L (3.5-5.1)
[2016-11-29 07:21] LABS: ALKALINE PHOSPHATASE 54 U/L (45-117); ALT (GPT) 14 U/L (10-53); TOTAL BILIRUBIN ADULT 0.4 MG/DL (0.2-1.0)
[2016-11-29 08:21] LABS: BANDS 13 % (0-6); BASOPHILS 1 % (0-2); EOSINOPHILS 2 % (0-4); METAMYELOCYTES 2 % (0-1); MYELOCYTES 4 % (0-0); NEUTROPHIL # MANUAL DIFF 4.2 TH/MM3 (1.8-7.7); POLYS (SEG NEUTROPHILS) 31 % (16-70); WBC DIFF SAMPLE 100
[2016-11-29 08:22] LABS: KERATOCYTES OCC (NORMAL); PLATELET ESTIMATE SMEAR LOW (NORMAL); PLATELET MORPHOLOGY ENLARGED (NORMAL)
[2016-11-29] MEDS: PANTOPRAZOLE SOD 20 MG DELAYED RELEASE TAB PO SCH (08:22)
[2016-11-29 08:23] LABS: ACANTHOCYTES OCC (NORMAL); DOHLE BODIES PRESENT (NONE SEEN)
[2016-11-29 08:24] LABS: BLASTS 3 % (0-0); SCAN/DIFF FINAL DIFF MANUAL
[2016-11-29] MEDS ORDERED: FUROSEMIDE 20 MG/2 ML VIAL IV ONE (08:30)
[2016-11-29] MEDS ORDERED: SODIUM CHLOR 0.9% 250 ML INJ 250 ML IV ONE ×2 (08:30→15:30)
[2016-11-29] MEDS ORDERED: diphenhydrAMINE HCL 25 MG CAP PO PRN (08:30)
[2016-11-29] MEDS ORDERED: POTASSIUM CHLORIDE 20 MEQ PWD PACKET PO ONE ×2 (08:30→18:15)
[2016-11-29] MEDS ORDERED: ACETAMINOPHEN 325 MG TAB PO PRN (08:30)
[2016-11-29] MEDS: SODIUM CHLORIDE 0.9% FLUSH 10 ML FLUSH IV FLUSH SCH ×2 (09:00→21:00)
--- NOTE | 2016-11-29 09:46 | PD.ONC.PN ---
Subjective Subjective Remarks Afebrile overnight. Patient resting in bed. C/o pain in right upper extremity. Feeling anxious. Objective Data Date Time Temp Pulse Resp B/P (MAP) Pulse Ox O2 Delivery O2 Flow Rate FiO2 11/29/16 08:45 94 Nasal Cannula 4.00 11/29/16 04:00 99.5 102 17 93/54 (67) 94 11/29/16 04:00 109 11/29/16 02:36 16 11/29/16 00:10 110 11/29/16 00:00 99.1 112 17 142/86 (104) 92 11/28/16 21:48 Nasal Cannula 2.00 11/28/16 20:29 19 11/28/16 20:07 110 11/28/16 20:00 98.3 112 18 143/69 (93) 92 11/28/16 16:59 94 Nasal Cannula 2.00 11/28/16 16:00 98.6 96 20 100/49 (66) 92 11/28/16 14:45 99.0 96 20 96 11/28/16 14:33 98.0 101 20 92/49 94 11/28/16 12:00 99.8 96 20 97/54 (68) 93 11/28/16 09:54 92 Nasal Cannula 2.00 Result Diagram: 11/29/16 0407 11/29/16 0607 Laboratory Results Laboratory Tests Test 11/29/16 04:07 11/29/16 06:07 White Blood Count 8.3 TH/MM3 Red Blood Count 3.12 MIL/MM3 Hemoglobin 8.4 GM/DL Hematocrit 25.4 % Mean Corpuscular Volume 81.6 FL Mean Corpuscular Hemoglobin 27.1 PG Mean Corpuscular Hemoglobin Concent 33.2 % Red Cell Distribution Width 19.7 % Platelet Count 36 TH/MM3 Mean Platelet Volume 10.6 FL CBC Comment AUTO DIFF Differential Total Cells Counted 100 Neutrophils % (Manual) 31 % Band Neutrophils % 13 % Lymphocytes % 24 % Monocytes % 20 % Eosinophils % 2 % Basophils % 1 % Neutrophils # (Manual) 4.2 TH/MM3 Metamyelocytes 2 % Myelocytes 4 % Differential Comment FINAL DIFF MANUAL Blastocytes 3 % Dohle Bodies PRESENT Platelet Estimate LOW Platelet Morphology Comment ENLARGED Basophilic Stippling MOD Acanthocytes OCC Keratocytes OCC Blood Urea Nitrogen 8 MG/DL Creatinine 0.55 MG/DL Random Glucose 85 MG/DL Total Protein 4.9 GM/DL Albumin 1.5 GM/DL Calcium Level 7.9 MG/DL Alkaline Phosphatase 54 U/L Aspartate Amino Transf (AST/SGOT) 10 U/L Alanine Aminotransferase (ALT/SGPT) 14 U/L Total Bilirubin 0.4 MG/DL Sodium Level 142 MEQ/L Potassium Level 2.9 MEQ/L Chloride Level 109 MEQ/L Carbon Dioxide Level 25.1 MEQ/L Anion Gap 8 MEQ/L Estimat Glomerular Filtration Rate 107 ML/MIN Administered Medications Medications (Trade) Dose Ordered Sig/Suyapa Route PRN Reason Start Time Stop Time Status Last Admin Dose Admin Sodium Chloride (NS Flush) 2 ml BID IV FLUSH 11/09/16 21:00 11/22/16 21:00 Sennosides (Senokot) 17.2 mg Q12H PRN PO MODERATE - SEVERE CONSTIPATION 11/09/16 13:30 11/25/16 08:28 Pantoprazole Sodium (Protonix) 20 mg DAILY PO 11/10/16 09:00 11/29/16 08:22 Diphenhydramine HCl (Benadryl) 25 mg Q6H PRN PO ITCHING 11/09/16 16:15 11/21/16 20:44 Acetaminophen (Tylenol) 650 mg Q4H PRN PO HEADACHE 11/09/16 22:30 11/22/16 11:24 Ondansetron HCl (Zofran Inj) 4 mg Q6HR PRN IV PUSH nausea 11/09/16 23:30 11/28/16 10:43 Levothyroxine Sodium (Synthroid) 112 mcg MoWeFr@0600 PO 11/12/16 07:30 11/28/16 06:35 Levothyroxine Sodium (Synthroid) 25 mcg MoWeFr@0600 PO 11/12/16 07:30 11/28/16 06:35 Levothyroxine Sodium (Synthroid) 125 mcg SuTuThSa@0600 PO 11/13/16 06:00 11/29/16 06:34 Potassium Chloride/Sodium Chloride 1,000 ml @ 100 mls/hr Q10H IV 11/22/16 13:15 11/29/16 01:50 Oxycodone/ Acetaminophen (Percocet 5-325 Mg) 1 tab Q4H PRN PO PAIN SCALE 1 TO 5 11/22/16 18:00 11/29/16 08:22 Oxycodone/ Acetaminophen (Percocet 5-325 Mg) 2 tab Q4H PRN PO PAIN SCALE 6 TO 10 11/22/16 18:00 11/29/16 01:36 Miscellaneous Information Patient in critical care unit? Ass... Q361D .XX 11/22/16 21:30 11/22/16 21:30 Hydromorphone HCl (Dilaudid Pf Inj) 1 mg Q4H PRN IV PUSH Breakthrough Pain 11/23/16 09:00 11/23/16 20:24 Acetaminophen (Tylenol) 650 mg Q4H PRN PO SEE LABEL COMMENTS 11/28/16 11:00 11/28/16 12:30 Objective Remarks GENERAL: Elderly female, sitting up in bed in [facility]. SKIN: Warm and dry. HEAD: Normocephalic. EYES: No injection or drainage. NECK: Supple, trachea midline. CARDIOVASCULAR: +S1/S2, tachy RESPIRATORY: scattered rhonchi. On 4L O2 via [place] GASTROINTESTINAL: Abdomen soft, non-tender, nondistended. EXTREMITIES: No cyanosis. bruising noted on both arms. RUE with some edema. NEUROLOGICAL: aox3. normal speech. moving all extremities. Assessment/Plan Problem List: (1) Leukemia ICD Codes: C95.90 - Leukemia, unspecified not having achieved remission Plan: --patient planning to return to [place] for treatment. 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 Dr. Mclean discussed with at [facility] who will be treating pt when she gets up there. (2) Microcytic anemia ICD Codes: D50.9 - Iron deficiency anemia, unspecified Plan: ++microcytosis. --iron studies show elevated ferritin, low TIBC, low serum iron-->this is more consistent with anemia of chronic disease/inflammation --B12/folate showed no deficiency Assessment 76y/o female admitted with weakness, ARF, dehydration, metabolic acidosis. Hematology consulted for worsening thrombocytopenia. history of thyroid cancer treated 30 years ago. Crohn's disease. Thyroidectomy cholecystectomy bilateral oophorectomy. Hemorrhoidectomy. Plan 1. give 1 unit platelets in preparation for discharge if able to obtain IV access again. We do not want to start central line since patient being transferred tomorrow AM. 2. continue supportive care 3. warm compresses to right arm. Attending Statement The exam, history, and the medical decision-making described in the above note were completed with the assistance of the mid-level provider. I reviewed and agree with the findings presented. I attest that I had a [id number] encounter with the patient on the same day, and personally performed and documented my assessment and findings in the medical record. Feeling stronger. Ambulate with PT yesterday. No bleeding. Hgb and platelet stable. +R arm pain, US showed superficial thrombophlebitis, improved. Continue supportive care. Pt plan to fly to [place] and be directly admitted to [facility] tomorrow. Problem Qualifiers (1) Leukemia: Qualified Codes: C92.00 - Acute myeloblastic leukemia, not having achieved remission Milana Chapin Nov 29, 2016 09:46 Nima Mclean MD Nov 29, 2016 11:10
[2016-11-29] MEDS: CALCIUM CARBONATE 1.25 GM (CA 500 MG) TAB PO SCH (11:54)
--- NOTE | 2016-11-29 15:35 | HHI.DS ---
Discharge Summary Admission Date Nov 09, 2016 at 13:21 Discharge Date: Nov 29, 2016 Admitting Diagnosis acute kidney injury. Dehydration. Electrolyte abnormality. (1) Viral syndrome ICD Code: B34.9 - Viral infection, unspecified Diagnosis: Secondary (2) Hyponatremia ICD Code: E87.1 - Hypo-osmolality and hyponatremia Diagnosis: Secondary Status: Acute (3) Acute kidney injury ICD Code: N17.9 - Acute kidney failure, unspecified Diagnosis: Principal Status: Acute (4) Hypotension ICD Code: I95.9 - Hypotension, unspecified Diagnosis: Secondary (5) Metabolic acidosis ICD Code: E87.2 - Acidosis Diagnosis: Secondary (6) Thrombocytopenia ICD Code: D69.6 - Thrombocytopenia, unspecified Diagnosis: Secondary (7) Viral pneumonitis ICD Code: J12.9 - Viral pneumonia, unspecified Diagnosis: Secondary (8) Fluid overload ICD Code: E87.70 - Fluid overload, unspecified Diagnosis: Secondary (9) Hypokalemia ICD Code: E87.6 - Hypokalemia Diagnosis: Secondary Status: Acute (10) Sepsis ICD Code: A41.9 - Sepsis, unspecified organism Diagnosis: Secondary (11) Pneumonia ICD Code: J18.9 - Pneumonia, unspecified organism Diagnosis: Secondary (12) Acute leukemia ICD Code: C95.00 - Acute leukemia of unspecified cell type not having achieved remission Diagnosis: Principal Procedures Bone Marrow Biopsy Brief History - From Admission Patient's 76-year-old failure with a history of hypothyroid is some due to thyroid cancer status post thyroidectomy who came to the emergency room complaining of severe dehydration and weakness for about a week. He has been progressive over the last week and a back she had increasing headaches which she called her primary care physician's office was in her probably to the emergency room. Here she has been tachycardic and hypotensive and weak overall. She reports having done full exercises at her senior group and feeling worn out and tired as well as with some associated fevers and chills and myalgias over the next 24-48 hours. By the third day she was so weak she couldn't get out of bed. She has had decreased oral intake since that time. She reports some nausea without vomiting without diarrhea. The patient has been taking Tylenol at home without improvement and she admits also history of Crohn's without exacerbation. Patient notes no sick contacts. She otherwise has been in good health. She has been admitted to the hospital due to severe hypotension with evidence of acute kidney injury a.m. with CBC/BMP: 11/29/16 0407 11/29/16 0607 Significant Findings Laboratory Tests Test 11/26/16 22:29 11/27/16 07:07 11/28/16 07:58 11/29/16 04:07 Red Blood Count 3.19 MIL/MM3 (4.00-5.30) 3.57 MIL/MM3 (4.00-5.30) 3.12 MIL/MM3 (4.00-5.30) Hemoglobin 8.7 GM/DL (11.6-15.3) 9.7 GM/DL (11.6-15.3) 8.4 GM/DL (11.6-15.3) Hematocrit 26.1 % (35.0-46.0) 29.0 % (35.0-46.0) 25.4 % (35.0-46.0) Red Cell Distribution Width 19.9 % (11.6-17.2) 19.5 % (11.6-17.2) 19.7 % (11.6-17.2) Platelet Count 36 TH/MM3 (150-450) 35 TH/MM3 (150-450) 36 TH/MM3 (150-450) Mean Platelet Volume 11.7 FL (7.0-11.0) 11.7 FL (7.0-11.0) Band Neutrophils % 9 % (0-6) 10 % (0-6) 13 % (0-6) Monocytes % 12 % (0-8) 20 % (0-8) Metamyelocytes 6 % (0-1) 2 % (0-1) Blastocytes 4 % (0-0) 7 % (0-0) 3 % (0-0) Platelet Estimate LOW (NORMAL) LOW (NORMAL) LOW (NORMAL) Platelet Morphology Comment ENLARGED (NORMAL) ENLARGED (NORMAL) Ovalocytes 1+ (NORMAL) Acanthocytes OCC (NORMAL) OCC (NORMAL) Keratocytes 1+ (NORMAL) OCC (NORMAL) Activated Partial Thromboplast Time 31.7 SEC (24.3-30.1) Fibrinogen 413 mg/dL (227-377) Total Protein 4.6 GM/DL (6.4-8.2) 5.2 GM/DL (6.4-8.2) Albumin 1.6 GM/DL (3.4-5.0) 1.6 GM/DL (3.4-5.0) Calcium Level 7.7 MG/DL (8.5-10.1) 7.9 MG/DL (8.5-10.1) Aspartate Amino Transf (AST/SGOT) 10 U/L (15-37) 12 U/L (15-37) Chloride Level 112 MEQ/L (98-107) Carbon Dioxide Level 20.3 MEQ/L (21.0-32.0) Estimat Glomerular Filtration Rate 88 ML/MIN (>89) Eosinophils % 5 % (0-4) Myelocytes 1 % (0-0) 4 % (0-0) Lactate Dehydrogenase 274 U/L (84-246) Potassium Level 3.2 MEQ/L (3.5-5.1) Dohle Bodies PRESENT (NONE SEEN) Basophilic Stippling MOD (NORMAL) Test 11/29/16 06:07 Total Protein 4.9 GM/DL (6.4-8.2) Albumin 1.5 GM/DL (3.4-5.0) Calcium Level 7.9 MG/DL (8.5-10.1) Aspartate Amino Transf (AST/SGOT) 10 U/L (15-37) Potassium Level 2.9 MEQ/L (3.5-5.1) Chloride Level 109 MEQ/L (98-107) PE at Discharge AAOx3, nad lying in bed Very warm skin S1S2 RRR, no MRG + 1 edema of BL lower extremities with RLE slightly bigger than the left abdmen soft, non tender, non distended Hospital Course Mrs. Hicks is a 76-year-old female. She originally was admitted secondary to what appeared to be a viral syndrome. She had had 3 days of preceding abdominal pain and has a reported history of Crohn's disease. She came in with dehydration, 3 days of diarrhea, abdominal pain, acute kidney injury, and electrolytes disturbance. The kidney injury took longer than expected to improve. Dunne was improving the patient started to have other disturbances including thrombocytopenia and anemia. Blood thinners were held which cause a transient stability but didn't patient have recurrent episodes of thrombocytopenia. Acute kidney injury gradually resolved but patient has had profound weakness and no recurrent problem with anemia and thrombocytopenia, requiring transfusions of platelets and blood. Patient was sent to our main hospital and had bone marrow biopsy which resulted in evidence of acute leukemia. Family has requested and arranged transport patient from our hospital to [facility] in [place]. Patient will be leaving via medical transport first thing tomorrow morning. Patient is stable from medical transport and will resume hospitalization upon arrival in [place]. Case discussed with receiving oncologist. Pt Condition on Discharge: Guarded Discharge Disposition: Trnsfr to Other Facility Discharge Time: > 30 minutes Discharge Instructions DIET: Follow Instructions for: As Tolerated, No Restrictions Activities you can perform: Regular-No Restrictions Follow up Referrals: Oncology - Daily Additional Information Administered Medications Medications (Trade) Dose Ordered Sig/Suyapa Route PRN Reason Start Time Stop Time Status Last Admin Dose Admin Sodium Chloride (NS Flush) 2 ml BID IV FLUSH 11/09/16 21:00 11/22/16 21:00 Sennosides (Senokot) 17.2 mg Q12H PRN PO MODERATE - SEVERE CONSTIPATION 11/09/16 13:30 11/25/16 08:28 Pantoprazole Sodium (Protonix) 20 mg DAILY PO 11/10/16 09:00 11/29/16 08:22 Diphenhydramine HCl (Benadryl) 25 mg Q6H PRN PO ITCHING 11/09/16 16:15 11/21/16 20:44 Acetaminophen (Tylenol) 650 mg Q4H PRN PO HEADACHE 11/09/16 22:30 11/22/16 11:24 Ondansetron HCl (Zofran Inj) 4 mg Q6HR PRN IV PUSH nausea 11/09/16 23:30 11/28/16 10:43 Levothyroxine Sodium (Synthroid) 112 mcg MoWeFr@0600 PO 11/12/16 07:30 11/28/16 06:35 Levothyroxine Sodium (Synthroid) 25 mcg MoWeFr@0600 PO 11/12/16 07:30 11/28/16 06:35 Levothyroxine Sodium (Synthroid) 125 mcg SuTuThSa@0600 PO 11/13/16 06:00 11/29/16 06:34 Potassium Chloride/Sodium Chloride 1,000 ml @ 100 mls/hr Q10H IV 11/22/16 13:15 11/29/16 01:50 Oxycodone/ Acetaminophen (Percocet 5-325 Mg) 1 tab Q4H PRN PO PAIN SCALE 1 TO 5 11/22/16 18:00 11/29/16 12:03 Oxycodone/ Acetaminophen (Percocet 5-325 Mg) 2 tab Q4H PRN PO PAIN SCALE 6 TO 10 11/22/16 18:00 11/29/16 01:36 Miscellaneous Information Patient in critical care unit? Ass... [id number] .XX 11/22/16 21:30 11/22/16 21:30 Hydromorphone HCl (Dilaudid Pf Inj) 1 mg Q4H PRN IV PUSH Breakthrough Pain 11/23/16 09:00 11/23/16 20:24 Acetaminophen (Tylenol) 650 mg Q4H PRN PO SEE LABEL COMMENTS 11/28/16 11:00 11/28/16 12:30 Calcium Carbonate (Oscal) 500 mg DAILY PO 11/29/16 09:00 11/29/16 11:54 Gallito Reed MD Nov 29, 2016 15:35
[2016-11-29 15:49] LABS: MAGNESIUM 1.3 MG/DL (1.5-2.5); POTASSIUM 3.5 MEQ/L (3.5-5.1)
[2016-11-29] MEDS ORDERED: ALPR.25 PO (16:24)
[2016-11-29] MEDS ORDERED: PROM25TA10 PO (16:24)
[2016-11-29] MEDS ORDERED: OXYC1TAB63 PO (16:24)
[2016-11-29] MEDS ORDERED: ALBUTEROL SULFATE 90 MCG/ACT HFA 8 GM INHALER INH PRN (16:30)
[2016-11-29] MEDS: ACETAMINOPHEN 325 MG TAB PO PRN (16:48)
[2016-11-29] MEDS ORDERED: POTASSIUM PHOSPHATE MONOBASIC 500 MG TAB PO ONE (18:15)
[2016-11-29] MEDS ORDERED: MAGNESIUM OXIDE 400 MG TAB PO ONE (18:15)
[2016-11-30 00:08] VITALS: PULSE 103
[2016-11-30 00:36] VITALS: BP 130/69; PULSE 95; RESP 18; TEMP 99; O2SAT 98
[2016-11-30] MEDS: NS + KCL 40 MEQ INJ 1,000 ML IV SCH (01:15)
[2016-11-30 04:00] VITALS: BP 135/84; PULSE 107; RESP 18; TEMP 99.4; O2SAT 94
[2016-11-30 04:07] VITALS: PULSE 108
[2016-11-30] MEDS: LEVOTHYROXINE SODIUM 112 MCG TAB PO SCH (05:31)
[2016-11-30] MEDS: LEVOTHYROXINE SODIUM 25 MCG TAB PO SCH (05:31)
[2016-11-30] MEDS: oxyCODONE/ACETAMINOPHEN 5 MG/325 MG TAB PO PRN ×2 (05:36→09:28)
[2016-11-30 06:45] LABS: HEMATOCRIT 30.7 % (35.0-46.0); MEAN CELL VOLUME 81.5 FL (80.0-100.0); MEAN CORPUSCULAR HEMOGLOBIN 27.3 PG (27.0-34.0); MEAN CORPUSCULAR HGB CONC 33.5 % (32.0-36.0); PLATELET COUNT 37 TH/MM3 (150-450); RED BLOOD COUNT 3.77 MIL/MM3 (4.00-5.30); WHITE BLOOD COUNT 7.6 TH/MM3 (4.0-11.0)
[2016-11-30 06:53] LABS: HEMO FLAGS AUTO DIFF
[2016-11-30 07:15] LABS: ALT (GPT) 12 U/L (10-53); ANION GAP 8 MEQ/L (5-15); AST (GOT) 11 U/L (15-37); BICARBONATE 26.4 MEQ/L (21.0-32.0); BLOOD UREA NITROGEN 7 MG/DL (7-18); CHLORIDE 105 MEQ/L (98-107); GLOMERULAR FILTRATION RATE 109 ML/MIN (>89); MAGNESIUM 1.3 MG/DL (1.5-2.5); POTASSIUM 3.3 MEQ/L (3.5-5.1); SODIUM (NA) 139 MEQ/L (136-145)
[2016-11-30 07:18] LABS: ALKALINE PHOSPHATASE 60 U/L (45-117); TOTAL BILIRUBIN ADULT 0.6 MG/DL (0.2-1.0)
[2016-11-30 07:58] LABS: BANDS 10 % (0-6); BASOPHILS 1 % (0-2); BLASTS 3 % (0-0); CORRECTED NUCLEATED RBC 1 /100 WBC (0-0); EOSINOPHILS 3 % (0-4); KERATOCYTES OCC (NORMAL); METAMYELOCYTES 2 % (0-1); MYELOCYTES 1 % (0-0); NEUTROPHIL # MANUAL DIFF 5.7 TH/MM3 (1.8-7.7); POLYS (SEG NEUTROPHILS) 62 % (16-70); WBC DIFF SAMPLE 100
[2016-11-30 07:59] LABS: ACANTHOCYTES OCC (NORMAL); PLATELET ESTIMATE SMEAR LOW (NORMAL)
[2016-11-30 08:00] VITALS: BP 115/58; PULSE 105; RESP 20; TEMP 99.7; O2SAT 95
[2016-11-30 08:00] LABS: PLATELET MORPHOLOGY ENLARGED (NORMAL); SCAN/DIFF FINAL DIFF MANUAL
[2016-11-30] MEDS: PANTOPRAZOLE SOD 20 MG DELAYED RELEASE TAB PO SCH (08:13)
[2016-11-30] MEDS: CALCIUM CARBONATE 1.25 GM (CA 500 MG) TAB PO SCH (08:13)
[2016-11-30] MEDS: SODIUM CHLORIDE 0.9% FLUSH 10 ML FLUSH IV FLUSH SCH (08:13)
[2016-11-30] MEDS ORDERED: POTASSIUM CHLORIDE 10 MEQ CONTROLLED RELEASE TAB PO ONE (08:30)
[2016-11-30] MEDS ORDERED: POTASSIUM CHLORIDE 20 MEQ CONTROLLED RELEASE TAB PO SCH (09:00)
--- NOTE | 2016-11-30 10:01 | HHI.PR ---
Subjective Remarks Potassium at 3.3 today. Hemoglobin at 10.3. Platelets of 37. Plan for medevac transfer to [facility] in [place] today. Objective Vital Signs Date Time Temp Pulse Resp B/P (MAP) Pulse Ox O2 Delivery O2 Flow Rate FiO2 11/30/16 08:15 Nasal Cannula 4.00 11/30/16 08:00 99.7 105 20 115/58 (77) 95 11/30/16 06:35 16 11/30/16 04:07 108 11/30/16 04:00 99.4 107 18 135/84 (101) 94 11/30/16 00:36 99.0 95 18 130/69 (89) 98 11/30/16 00:08 103 11/29/16 23:46 16 11/29/16 21:22 Nasal Cannula 4.00 11/29/16 20:07 99 11/29/16 20:00 98.4 98 18 129/65 (86) 97 11/29/16 20:00 Nasal Cannula 3.00 11/29/16 18:48 100.2 100 20 101/44 96 11/29/16 18:37 100.0 101 20 90/49 96 11/29/16 18:04 99.6 105 22 93/46 96 11/29/16 17:35 101.0 108 22 108/51 97 11/29/16 16:00 100.3 102 20 117/52 (73) 98 11/29/16 12:00 99.7 100 20 112/49 (70) 97 I/O 11/29/16 11/29/16 11/29/16 11/30/16 11/30/16 11/30/16 07:00 15:00 23:00 07:00 15:00 23:00 Intake Total 1704 ml Balance 1704 ml Intake Oral 960 ml Packed Cells 400 ml Platelets 294 ml Blood Product IV Normal Saline Flush 50 ml # Voids 1 7 2 # Bowel Movements 1 Result Diagram: 11/30/1651 11/30/16 05 Objective Remarks GENERAL: NAD, A&Ox3 HEAD: Normocephalic. NECK: Supple, trachea midline. No lymphadenopathy. EYES: No scleral icterus. No injection or drainage. CARDIOVASCULAR: Mild tachycardia and regular rhythm without murmurs, gallops, or rubs. RESPIRATORY: Breath sounds equal bilaterally. No accessory muscle use. GASTROINTESTINAL: Abdomen soft, non-tender, nondistended. MUSCULOSKELETAL: No cyanosis, or edema. SKIN: Warm and dry. Petechia forearms. NEURO: No focal neurological deficitis. A/P Problem List: (1) Pneumonia ICD Code: J18.9 - Pneumonia, unspecified organism (2) Hypotension ICD Code: I95.9 - Hypotension, unspecified (3) Acute kidney injury ICD Code: N17.9 - Acute kidney failure, unspecified Status: Acute (4) Hyponatremia ICD Code: E87.1 - Hypo-osmolality and hyponatremia Status: Acute (5) Hypokalemia ICD Code: E87.6 - Hypokalemia Status: Acute (6) Dehydration ICD Code: E86.0 - Dehydration Status: Acute Assessment and Plan Assessment and plan 76-year-old female admitted with acute kidney injury and dehydration and Crohn' s disease flareup with diarrhea and abdominal pain. Leukemia is present based on bone marrow biopsy. Evidence suggests AML. Labs reviewed today. Stable for medical transport. Potassium level of 3.3 is replacement supplement. Patient provided with scripts for pain, anxiety, and nausea to use on when necessary basis during the flight. AML Recurrent Anemia Thrombocytopenia Recurrent anemia and thrombocytopenia Transfuse as needed Hematology following Avoid blood thinners Bone marrow biopsy shows evidence of AML Exacerbation of Crohn's disease Diarrhea Resolved Acute kidney failure Possible ATN Resolved Pneumonia Antibiotics Stopped May have been pulmonary edema rather than pneumonia Possible sepsis Vancomycin ID following Hyponatremia Resolved Continue to monitor sodium levels Hypotension Resolved DVT prophylaxis SCDs Discharge planning Discharge to [facility] today. Problem Qualifiers (1) Pneumonia: Gallito Reed MD Nov 30, 2016 10:01
--- NOTE | 2016-11-30 10:18 | PD.ONC.PN ---
Subjective Subjective Remarks Late entry. Patient seen at 830AM. States her right arm feels better. No complaints. Objective Data Date Time Temp Pulse Resp B/P (MAP) Pulse Ox O2 Delivery O2 Flow Rate FiO2 11/30/16 08:15 Nasal Cannula 4.00 11/30/16 08:00 99.7 105 20 115/58 (77) 95 11/30/16 06:35 16 11/30/16 04:07 108 11/30/16 04:00 99.4 107 18 135/84 (101) 94 11/30/16 00:36 99.0 95 18 130/69 (89) 98 11/30/16 00:08 103 11/29/16 23:46 16 11/29/16 21:22 Nasal Cannula 4.00 11/29/16 20:07 99 11/29/16 20:00 98.4 98 18 129/65 (86) 97 11/29/16 20:00 Nasal Cannula 3.00 11/29/16 18:48 100.2 100 20 101/44 96 11/29/16 18:37 100.0 101 20 90/49 96 11/29/16 18:04 99.6 105 22 93/46 96 11/29/16 17:35 101.0 108 22 108/51 97 11/29/16 16:00 100.3 102 20 117/52 (73) 98 11/29/16 12:00 99.7 100 20 112/49 (70) 97 Result Diagram: 11/30/16 0551 11/30/16 0551 Laboratory Results Laboratory Tests Test 11/29/16 12:00 11/30/16 05:51 Potassium Level 3.5 MEQ/L 3.3 MEQ/L Phosphorus Level 1.8 MG/DL 1.7 MG/DL Magnesium Level 1.3 MG/DL 1.3 MG/DL White Blood Count 7.6 TH/MM3 Red Blood Count 3.77 MIL/MM3 Hemoglobin 10.3 GM/DL Hematocrit 30.7 % Mean Corpuscular Volume 81.5 FL Mean Corpuscular Hemoglobin 27.3 PG Mean Corpuscular Hemoglobin Concent 33.5 % Red Cell Distribution Width 19.0 % Platelet Count 37 TH/MM3 Mean Platelet Volume 9.2 FL CBC Comment AUTO DIFF Differential Total Cells Counted 100 Neutrophils % (Manual) 62 % Band Neutrophils % 10 % Lymphocytes % 2 % Monocytes % 16 % Eosinophils % 3 % Basophils % 1 % Neutrophils # (Manual) 5.7 TH/MM3 Metamyelocytes 2 % Myelocytes 1 % Nucleated Red Blood Cells 1 /100 WBC Differential Comment FINAL DIFF MANUAL Blastocytes 3 % Platelet Estimate LOW Platelet Morphology Comment ENLARGED Acanthocytes OCC Keratocytes OCC Blood Urea Nitrogen 7 MG/DL Creatinine 0.54 MG/DL Random Glucose 73 MG/DL Total Protein 5.3 GM/DL Albumin 1.6 GM/DL Calcium Level 7.6 MG/DL Alkaline Phosphatase 60 U/L Aspartate Amino Transf (AST/SGOT) 11 U/L Alanine Aminotransferase (ALT/SGPT) 12 U/L Total Bilirubin 0.6 MG/DL Sodium Level 139 MEQ/L Chloride Level 105 MEQ/L Carbon Dioxide Level 26.4 MEQ/L Anion Gap 8 MEQ/L Estimat Glomerular Filtration Rate 109 ML/MIN Objective Remarks GENERAL: Elderly female, sitting up in bed in [facility]. SKIN: Warm and dry. HEAD: Normocephalic. EYES: No injection or drainage. NECK: Supple, trachea midline. CARDIOVASCULAR: mildly tachycardic, regular rhythm. RESPIRATORY: anterior galindo clear. on 4L O2 via nc GASTROINTESTINAL: Abdomen soft, non-tender, nondistended. EXTREMITIES: No cyanosis. bruising noted on both arms. RUE with some edema. NEUROLOGICAL: awake and alert, normal speech. moving all extremities. Assessment/Plan Problem List: (1) Leukemia ICD Codes: C95.90 - Leukemia, unspecified not having achieved remission Plan: --patient planning to return to [place] for treatment. 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 Dr. Mclean discussed with at [facility] who will be treating pt when she gets up there. (2) Microcytic anemia ICD Codes: D50.9 - Iron deficiency anemia, unspecified Plan: ++microcytosis. --iron studies show elevated ferritin, low TIBC, low serum iron-->this is more consistent with anemia of chronic disease/inflammation --B12/folate showed no deficiency Assessment 76y/o female admitted with weakness, ARF, dehydration, metabolic acidosis. Hematology consulted for worsening thrombocytopenia. history of thyroid cancer treated 30 years ago. Crohn's disease. Thyroidectomy cholecystectomy bilateral oophorectomy. Hemorrhoidectomy. Plan 1. monitor CBC 2. supportive care Attending Statement The exam, history, and the medical decision-making described in the above note were completed with the assistance of the mid-level provider. I reviewed and agree with the findings presented. I attest that I had a [id number] encounter with the patient on the same day, and personally performed and documented my assessment and findings in the medical record. Feeling stronger after the transfusion. Anxious about her flight to [place]. Hgb trended up with transfusion. Platelet still around 36K. She is going to [place] later in the morning and will be admitted to [facility] when she gets there to continue her treatment. Problem Qualifiers (1) Leukemia: Qualified Codes: C92.00 - Acute myeloblastic leukemia, not having achieved remission Milana Chapin Nov 30, 2016 10:18 Nima Mclean MD Nov 30, 2016 15:00
== END 2016-11-30 09:40 | disposition short-term general hospital (02) | DRG 834 ==
LOC: PHED 11:14 → PHEDA 13:21 → PH3B 14:26 → HIMW 11-22 20:50 → HOCA 11-23 17:22
PROVIDERS: ADMIT Hospitalist; ATTEND Hospitalist
PROC: 6A551Z2 Pheresis of Platelets, Multiple (ICD-10-PCS; 2016-11-22)
PROC: 07DR3ZX Extraction of Iliac Bone Marrow, Percutaneous Approach, Diagnostic (ICD-10-PCS; principal; 2016-11-23)
PROC: 30233N1 Transfusion of Nonautologous Red Blood Cells into Peripheral Vein, Percutaneous Approach (ICD-10-PCS; 2016-11-26)
DX: C92.00 Acute myeloblastic leukemia, not having achieved remission (principal); J12.9 Viral pneumonia, unspecified; N17.0 Acute kidney failure with tubular necrosis; A41.9 Sepsis, unspecified organism; E87.2 Acidosis; K50.90 Crohn's disease, unspecified, without complications; E87.1 Hypo-osmolality and hyponatremia; E83.51 Hypocalcemia; E86.0 Dehydration; E87.6 Hypokalemia; Z79.01 Long term (current) use of anticoagulants; Z79.82 Long term (current) use of aspirin; G89.29 Other chronic pain; Z85.850 Personal history of malignant neoplasm of thyroid; Z82.3 Family history of stroke; Z82.49 Family history of ischemic heart disease and other diseases of the circulatory system; E89.0 Postprocedural hypothyroidism; M19.90 Unspecified osteoarthritis, unspecified site; K59.00 Constipation, unspecified; Y95 Nosocomial condition; M79.601 Pain in right arm; F41.9 Anxiety disorder, unspecified
CPT/HCPCS: 36430; 36600; 38221; 70450; 71010; 71275; 74176; 76775; 76937; 77012; 80048; 80053; 80202; 81001; 81218; 81245; 81310; 82550; 82607; 82728; 82746; 82805; 83540; 83550; 83605; 83615; 83690; 83735; 84100; 84132; 85007; 85025; 85027; 85044; 85049; 85060; 85097; 85379; 85384; 85610; 85652; 85730; 86021; 86022; 86038; 86160; 86850; 86900; 86901; 86920; 87040; 87086; 87205; 87641; 87804; 88184; 88185; 88237; 88264; 88280; 88305; 88311; 88313; 93005; 93306; 93970; 93971; 94620; 94640; 94664; 96361; 96374; 99152; C1830; J0131; J0696; J1170; J1644; J1940; J1956; J2250; J2270; J2405; J2543; J2920; J2930; J3010; J3370; J3475; J3480; J7030; J7040; J7050; J7613; P9016; P9035; Q9967